=== PATIENT | female | born 1935 | race Hispanic/Latino ===

== ENCOUNTER → 2023-10-24 08:40 | Outpatient (REF) | payer MEDICARE, SELFPAY ==
[2023-10-24 09:55] LABS: ALT (SGPT) 22 U/L (0-35); AST (SGOT) 25 U/L (14-36); Albumin 3.8 g/dl (3.5-5.0); Alkaline Phosphatase 56 U/L (38-126); Blood Urea Nitrogen 23 mg/dl (7-17); Carbon Dioxide 33 mmol/L (22-30); Chloride 97 mmol/L (98-107); Glucose 140 mg/dl (70-99); Potassium 3.5 mmol/L (3.5-5.1); Sodium 138 mmol/L (135-145); Total Bilirubin 1.3 mg/dl (0.2-1.3); Total Cholesterol 186 mg/dl (50-199); Total Protein 6.7 g/dl (6.3-8.2); Triglyceride 94 mg/dl (10-149); Very Low Density Lipoprotein 18 mg/dl (0-30); eGFR > 60.00
[2023-10-24 10:04] LABS: HDL Cholesterol 139 mg/dl; LDL Cholesterol, Calculated 29 mg/dl
[2023-10-24 12:11] LABS: Microalbumin, Random Urine > 0.6 mg/dl (0.6-1.7)
[2023-10-24 12:23] LABS: Glycohemoglobin (HgbA1c) 8.2 % (4.0-5.6)
== END ==
LOC: RAD 08:40
PROVIDERS: ATTENDING PHYSICIAN Internal Medicine
DX: M81.0 Age-related osteoporosis without current pathological fracture (principal); I10 Essential (primary) hypertension; E11.9 Type 2 diabetes mellitus without complications
CPT/HCPCS: 36415; 77080; 80053; 80061; 82043; 82570; 83036

== ENCOUNTER 2023-10-29 13:39 | Emergency (ER) | payer MEDICARE, SELFPAY ==
[2023-10-29 13:46] VITALS: BP 150/85
[2023-10-29 14:27] LABS: % Basophils 0.3 % (0-2); % Immature Granulocytes 0.8 % (0-0.5); % Lymphocytes 5.4 % (20.5-51.1); % Monocytes 6.6 % (1.7-9.3); % Neutrophils 86.9 % (42.2-75.2); Absolute Immature Granulocytes 0.1 10^3/uL (0-0.05); Absolute Lymphocytes 0.4 10^3/uL (1.2-3.4); Absolute Monocytes 0.5 10^3/uL (0.1-0.6); Absolute Neutrophils 6.5 10^3/uL (1.4-6.5); Hematocrit 47.8 % (37.0-47.0); Mean Corp Hgb Conc. 33.5 g/dL (33.0-37.0); Mean Corpuscular Hgb 31.3 pg (27.0-31.0); Mean Corpuscular Volume 93.5 fL (81.0-99.0); Mean Platelet Volume 11.1 fL (7.4-10.4); Nucleated Red Blood Cells % 0 %; Platelet Count 163 10^3/uL (130-400); Red Blood Cell Count 5.11 10^6/uL (4.20-5.40); Red Cell Dist. Width 14.4 % (11.5-14.5); White Blood Cell Count 7.5 10^3/uL (4.8-10.8)
[2023-10-29 14:39] LABS: ALT (SGPT) 28 U/L (0-35); AST (SGOT) 45 U/L (14-36); Albumin 4.4 g/dl (3.5-5.0); Alkaline Phosphatase 73 U/L (38-126); Blood Urea Nitrogen 18 mg/dl (7-17); Calcium 9.8 mg/dl (8.4-10.2); Carbon Dioxide 29 mmol/L (22-30); Chloride 95 mmol/L (98-107); Glucose 201 mg/dl (70-99); Potassium 3.8 mmol/L (3.5-5.1); Sodium 132 mmol/L (135-145); Total Protein 7.5 g/dl (6.3-8.2); eGFR > 60.00
[2023-10-29 15:32] LABS: COVID-19 Antigen Negative (Negative)
--- NOTE | 2023-10-29 16:13 | ED.GENMED ---
History of Present Illness
General
Chief Complaint: Cold/Flu/URI Symptoms
Source: patient
Time Seen by Provider: 10/29/23 15:50
Travel History
Have you had any contact with someone who has COVID-19?: No
Do you have any symptoms of coronavirus? Fever > 100 degrees, chills, cough, shortness of breath, sore throat, loss of taste or smell, muscle aches, or headache?: Yes
Symptoms:: cough
History of Present Illness
History of Present Illness:
88-year-old female on Eliquis for history of atrial fibrillation and sees pulmonology for history of bronchial asthma presents with 4 days worth of increased cough. She notes sweats and chills. She notes slight fatigue. Denies measurable fever.
No vomiting. No known sick contacts. No other complaints at this time
Past History
Past History
ED Past Medical History: Arrthythmia, Asthma, HTN, Other (OA) and Other (Asthma, macular degeneration, atrial fibrillation, osteoarthritis)
ED Past Surgical History: Other (Noncontributory)
Social History
Tobacco: Former smoker
Alcohol: None
Drug: None
Personal: Other (Noncontributory)
Living: with family
Employment: Not employed
Family History
Family History: Other (Noncontributory)
Phy Exam
Physical Exam
Physical Exam:
General: Well-appearing female no acute respiratory distress
HEENT: Normocephalic atraumatic
Heart: Regular rate and rhythm no murmurs
Lungs: Diffuse expiratory wheeze
Extremities: No cyanosis or edema
Skin: No rash or lesions
Course
Orders/Labs/Results
Orders:
Orders
10/29/23 13:48
Electrocardiogram (*1) Urgent
Reason for Study: Other
Other Reason for Exam: cough
CXR2 [CR Chest - 2 Views ] Urgent
Comment:
Reason For Exam: coughing
10/29/23 13:49
EKG- Treatment ONCE
10/29/23 14:16
COVID-19 Antigen Urgent
Source: Nasal Swab
Complete Blood Count/With Diff Urgent
Comprehensive Metabolic Panel Urgent
Influenza A+B Rapid Molecular Urgent
MICHAEL Source: Nasal Swab
Specimen Description:
Abnormal Lab Results
10/29/23
14:16
Hct 47.8 H %
(37.0-47.0)
MCH 31.3 H pg
(27.0-31.0)
MPV 11.1 H fL
(7.4-10.4)
Abs Immat Gran (auto) 0.1 H 10^3/uL
(0-0.05)
Absolute Lymphs (auto) 0.4 L 10^3/uL
(1.2-3.4)
Immature Gran % 0.8 H %
(0-0.5)
Neutrophils % 86.9 H %
(42.2-75.2)
Lymphocytes % 5.4 L %
(20.5-51.1)
Sodium 132 L mmol/L
(135-145)
Chloride 95 L mmol/L
(98-107)
BUN 18 H mg/dl
(7-17)
Glucose 201 H mg/dl
(70-99)
Total Bilirubin 2.0 H mg/dl
(0.2-1.3)
AST 45 H U/L
(14-36)
10/29/23 14:16
10/29/23 14:16
Vital Signs
Initial and Last Documented VS:
Initial Vital Signs
Temp Pulse Resp BP Pulse Ox
98.7 F 89 18 150/85 94
10/29/23 13:46 10/29/23 13:46 10/29/23 13:46 10/29/23 13:46 10/29/23 13:46
Last Documented Vital Signs
Temp Pulse Resp BP Pulse Ox
98.7 F 84 18 146/88 95
10/29/23 13:46 10/29/23 16:22 10/29/23 16:22 10/29/23 16:22 10/29/23 16:22
MDM/Problems Addressed
Differential Diagnosis Includes:
Increased cough for 4 days. She notes sweats and chills. Not hypoxic at triage workup was reviewed that was performed through triage which shows a chest x-ray is stable no acute finding. Patient tested positive for influenza. COVID was negative.
Will increase prednisone temporarily to 40 mg daily for 5 days and have her come back to her typical 10 mg. Patient has nebulizers. No indication for Tamiflu
*Critical Care Note
Total Time (30-74mins, 75-104mins- exclusive of procedures): Not Applicable
Update Note
Update Note:
Patient did well ambulating without any hypoxia or respiratory distress. Stable for the
ED Attending Note
-
Portions of this chart may have been created with voice recognition software.� Occasional wrong word or��sound alike� substitutions may have occurred due to the inherent limitations of voice recognition software.
Discharge Plan
Departure
Patient Disposition: Home (Routine Discharge)
Date of Disposition: 10/29/23
Time of Disposition: 17:22
Patient with high blood pressure during this ER visit?: No
Discharge Problem:
Influenza A
Instructions: Acute Bronchitis, Adult (DC)
Prescriptions:
New
prednisone 20 mg tablet
40 mg PO DAILY 5 Days Qty: 10 0RF
No Action
Swathi-D 24 Hour Tablet
1 tab DAILY
Patient Comments:
180MG
Azelastine HCl
2 spray intranasal BID
Patient Comments:
137MCG
ergocalciferol (vitamin D2) 400 UNIT tablet
400 unit PO DAILY
hydrochlorothiazide 25 MG tablet
25 mg PO DAILY
albuterol sulfate [Ventolin HFA] 90 MCG/PUFF HFA aerosol inhaler
2 puff inhalation Q4HPRN PRN (Reason: sob)
fluticasone propionate 1 SPRAY spray,suspension
1 spray intranasal DAILY
Patient Comments:
stop for 2 weeks-too dry
beclomethasone dipropionate [Qvar] 7.3 GM aerosol
8.7 gm IH BID
docosahexaenoic acid-epa 1 CAP capsule
1 cap PO DAILY
Patient Comments:
100-160mg
calcium carbonate-vitamin D3 [Calcium 600 + D(3)] 1 EACH tablet
1 ea PO DAILY
omeprazole 20 MG tablet,delayed release (DR/EC)
20 mg PO DAILY
risedronate [Actonel] 150 MG tablet
150 mg PO .MONTHLY
apixaban [Eliquis] 5 MG tablet
5 mg PO BID Qty: 60 0RF
valsartan [Diovan] 160 MG capsule
160 mg PO DAILY
diltiazem HCl 180 MG capsule,extended release 24hr
180 mg PO BID
paroxetine HCl 20 MG tablet
20 mg PO DAILY
fluticasone propionate 1 SPRAY spray,suspension
1 spray IH DAILY
vitamins A,C,[id number]-[id number] [PreserVision AREDS] 1 CAP capsule
2 cap PO DAILY
biotin [Hard Nails] 2,500 MCG capsule
2,500 mcg PO DAILY
mometasone-formoterol [Dulera] 1 PUFF HFA aerosol inhaler
2 puff IH BID
hydrocodone-acetaminophen [Vicodin] 1 EACH tablet
1 ea PO Q4 PRN (Reason: pain) Qty: 15 0RF
Rx Instructions:
Do Not Mix with other acetaminophen containing products
hydrocodone-acetaminophen 1 TABLET tablet
1 tab PO Q4HPRN PRN (Reason: pain) Qty: 20 0RF
prednisone 20 MG tablet
40 mg PO DAILY Qty: 10 0RF
amoxicillin [Amoxil] 875 MG tablet
875 mg PO BID Qty: 14 0RF
Referrals:
Lucero Darby MD [Family Provider] -
Activity Restrictions/Additional Instructions:
Stay hydrated. Use Tylenol for fever or chills. Use prednisone 40 mg daily for 5 days. Switch back to your 10 mg of prednisone daily after. Return for worsening symptoms otherwise follow-up with your camera engineer
Interventions
Interventions:
*ED COVID-19 Vaccine History Last Done: 10/29/23 13:46
[2023-10-29 16:22] VITALS: BP 146/88
== END 2023-10-29 17:59 | disposition home or self-care (01) ==
LOC: EMR 13:39
PROVIDERS: Emergency Medicine; EMERGENCY PHYSICIAN Emergency Medicine; FAMILY PHYSICIAN Internal Medicine
DX: R05.9 Cough, unspecified (principal); J45.909 Unspecified asthma, uncomplicated; I10 Essential (primary) hypertension; H35.30 Unspecified macular degeneration; I48.91 Unspecified atrial fibrillation; M19.90 Unspecified osteoarthritis, unspecified site; J10.1 Influenza due to other identified influenza virus with other respiratory manifestations; Z87.891 Personal history of nicotine dependence
CPT/HCPCS: 99283; 71046; 80053; 85025; 87502; 87811; 93005

== ENCOUNTER → 2023-11-06 12:46 | Outpatient (REF) | payer MEDICARE, SELFPAY | LOC: REG 12:46 | PROVIDERS: ATTENDING PHYSICIAN Nurse Practitioner Family | DX: R05.9 Cough, unspecified (principal) | CPT/HCPCS: 87205 ==

== ENCOUNTER → 2024-01-02 14:32 | Outpatient (REF) | payer MEDICARE, SELFPAY ==
[2024-01-02 17:14] LABS: NT-proBNP 1890 pg/ml
== END ==
LOC: REG 14:32
PROVIDERS: ATTENDING PHYSICIAN Internal Medicine Cardiovascular Disease; FAMILY PHYSICIAN Internal Medicine
DX: I50.32 Chronic diastolic (congestive) heart failure (principal)
CPT/HCPCS: 36415; 83880

== ENCOUNTER 2024-01-29 18:54 | Inpatient (IN) | payer MEDICARE, SELFPAY ==
[2024-01-29 16:31] VITALS: BMI 23.6
--- NOTE | 2024-01-29 16:32 | ED.GENMED ---
History of Present Illness
General
Chief Complaint: Fall
Source: patient
Exam Limitations: none
Time Seen by Provider: 01/29/24 16:31
Nursing documentation reviewed up to this point in time: agreed with
Travel History
Have you had any contact with someone who has COVID-19?: No
Do you have any symptoms of coronavirus? Fever > 100 degrees, chills, cough, shortness of breath, sore throat, loss of taste or smell, muscle aches, or headache?: No
History of Present Illness
History of Present Illness:
88-year-old female with past medical history of A-fib on Eliquis, hypertension, macular degeneration presenting emergency department today with right hip pain following a fall. Patient states that she lives at home alone in an apartment in
[place]. Patient states that she uses a walker to ambulate at baseline. Patient states she is sitting on her chair watching TV when she got up and went to grab her walker, she states that she overshot the walker and fell over her walker on onto
her right side. Patient states that she immediately had a lot of pain in her right hip and was able unable to get up on her own. Patient states that she has a necklace that she can activate the call 911, she activated the button and EMS arrived.
Patient denies any head trauma, any loss of consciousness. Patient denies neck pain, chest pain, shortness of breath. Patient denies any dizziness or lightheadedness prior to the fall.
Past History
Past History
ED Past Medical History: Arrthythmia, Asthma, HTN, Other (OA) and Other (Asthma, macular degeneration, atrial fibrillation, osteoarthritis)
ED Past Surgical History: Other (Noncontributory)
Social History
Tobacco: Former smoker
Alcohol: None
Drug: None
Personal: Other (Noncontributory)
Living: with family
Employment: Not employed
Family History
Family History: Other (Noncontributory)
Review of Systems
Review of Systems
All Other Systems: ROS reviewed and negative except as documented in HPI and ROS
Phy Exam
Physical Exam
Physical Exam:
General: Patient is well appearing and in no acute distress; non-toxic
Skin: Warm and dry, small curved laceration on the left anterior ramirez, no active bleeding.
Head: Normocephalic, atraumatic. No tenderness palpation of the facial bones, no palpable deformities
Eyes: Sclera non-icteric. EOMs intact. PERRLA.
Cardiac: Regular rate and rhythm, no murmur. No tenderness palpation of the external chest wall.
Peripheral Vascular: No lower extremity swelling or edema. 2+ dorsalis pedis pulse bilaterally.
Pulm: Normal respiratory effort, no wheezes, rales, rhonchi. Presents equal
Abdomen: No abdominal tenderness
Musculoskeletal: Right hip is held in external rotation and right limb appears short tendon compared to the left. Extreme pain with any passive movement of the right hip. No bony tenderness palpation of left hip, left knee, left tibia or fibula.
No pain with varus valgus stress of the ankles bilaterally.
Neuro: GCS 15, AAOx3. CN II-XII intact, no focal neurologic deficits. 5 out of 5 strength in bilateral upper extremities.
Psychiatric: Appropriate mood and affect.
Course
Orders/Labs/Results
Orders:
Orders
01/29/24 16:34
Hip, Right 2-3 Views [CR Hip - RT w/wo Pel 2-3 Vw*] Urgent
Comment:
Reason For Exam: fall, hip pain
Include a pelvis x-ray?: Yes
01/29/24 16:40
Complete Blood Count/With Diff Urgent
Comprehensive Metabolic Panel Urgent
01/29/24 16:51
Acetaminophen 1000MG/100Ml [Ofirmev] 1,000 mg in 100 ml .ROUTE .STK-MED
01/29/24 16:52
Acetaminophen 1000MG/100Ml [Ofirmev] 1,000 mg IV NOW STA
01/29/24 17:23
0.9% Sodium Chloride 500 ml [Nss] 500 ml IV BOLUS
01/29/24 17:46
Morphine Sulfate 1 mg IV NOW STA
01/29/24 18:44
Admit/Transfer Patient As Directed
Co-Sign Provider:
Level of Care: Inpatient admission
Assign to:: Medical/Surgical
Physician / Group: [email or web address]
Diagnosis: hip fracture
Reason for Hospitalization: hip fracture
Expected length of stay greater than two midnights?: Yes
ELOS- Estimated Length of Stay in days: 2
I certify the patient meets the requirements for IP care: Yes
Code Status As Directed
Resuscitation Status: Full Code
Abnormal Lab Results
01/29/24
16:40
RBC 5.42 H 10^6/uL
(4.20-5.40)
Hgb 16.9 H g/dL
(12.0-16.0)
Hct 51.1 H %
(37.0-47.0)
MCH 31.2 H pg
(27.0-31.0)
MPV 12.1 H fL
(7.4-10.4)
Abs Immat Gran (auto) 0.2 H 10^3/uL
(0-0.05)
Absolute Neuts (auto) 8.4 H 10^3/uL
(1.4-6.5)
Absolute Lymphs (auto) 0.8 L 10^3/uL
(1.2-3.4)
Immature Gran % 1.7 H %
(0-0.5)
Neutrophils % 86.9 H %
(42.2-75.2)
Lymphocytes % 8.2 L %
(20.5-51.1)
Sodium 134 L mmol/L
(135-145)
Chloride 94 L mmol/L
(98-107)
BUN 40 H mg/dl
(7-17)
Creatinine 1.2 H mg/dL
(0.6-1.0)
Glucose 342 H mg/dl
(70-99)
Calcium 11.0 H mg/dl
(8.4-10.2)
Total Bilirubin 1.9 H mg/dl
(0.2-1.3)
01/29/24 16:40
01/29/24 16:40
Vital Signs
Initial and Last Documented VS:
Initial Vital Signs
Temp Pulse Resp Pulse Ox
98.2 F 97 18 92
01/29/24 16:32 01/29/24 16:32 01/29/24 16:32 01/29/24 16:32
Last Documented Vital Signs
Temp Pulse Resp BP Pulse Ox
98.2 F 89 18 142/77 92
01/29/24 16:32 01/29/24 19:05 01/29/24 19:05 01/29/24 19:05 01/29/24 19:05
MDM/Problems Addressed
Differential Diagnosis Includes:
Patient femoral neck fracture, pelvic fracture, vertebral compression fracture, hip contusion, musculoskeletal sprain/strain, concussion
MDM/Problems Addressed:
hip pain following fall
Chronic conditions affecting care:
Asthma, A-fib on Eliquis, hypertension, diabetes
*Pulse Oximetry
Patient hypoxic: no
*Critical Care Note
Total Time (30-74mins, 75-104mins- exclusive of procedures): Not Applicable
Data Reviewed
Review of Other/Old Records Reveals: Records (Reviewed ER physician documentation from 10/21/2023)
Source: patient and records
Patient Management
Escalation/DeEscalation of care consider admission/obs:
88-year-old female with past medical history of A-fib on Eliquis, hypertension, macular degeneration presenting emergency department today with right hip pain following a fall. Patient did not hit her head, denies any neck pain. Patient has any
chest pain or shortness of breath. Patient denies any pain in her upper extremities. Patient was found to have on x-ray of right femoral neck fracture. Spoke to orthopedist on-call who will update patient's family on plans for surgery, states
that will likely operate on Friday after holding Eliquis for 48 hours. Also has acute kidney injury, likely secondary to diuretics. Fluids started. Patient will be admitted to medicine service.
ED Attending Note
-
Portions of this chart may have been created with voice recognition software.� Occasional wrong word or��sound alike� substitutions may have occurred due to the inherent limitations of voice recognition software.
Discharge Plan
Departure
Patient Disposition: Admit
Date of Disposition: 01/29/24
Time of Disposition: 18:23
Admit to: Med/Surg
Presentation/result/management discussed w/ accepting MD/DO: Hospitalist
Condition: Fair
Discharge Problem:
Right femoral fracture, Acute kidney injury
Interventions
Interventions:
*Risk Screen - Suicide Last Done: 01/29/24 16:33
*General Assessment Last Done: 01/29/24 16:33
*Neglect/Abuse Screening Last Done: 01/29/24 16:33
ED- Fall Risk Assessment Last Done: 01/29/24 19:22
*ED COVID-19 Vaccine History Last Done: 01/29/24 19:22
*Nursing Disposition Last Done: 01/29/24 19:22
ED-Musculoskeletal Assessment Last Done: 01/29/24 18:32
ED- Neurological Assessment Last Done: 01/29/24 18:32
ED-Skin Assessment Last Done: 01/29/24 18:33
Discharge Date and Time
Discharge Date/Time: 01/29/24 19:23
[2024-01-29 16:36] VITALS: BP 132/78
[2024-01-29] MEDS: OFIRMEV 1000 MG IV (16:52)
[2024-01-29 16:58] LABS: % Basophils 0.3 % (0-2); % Immature Granulocytes 1.7 % (0-0.5); % Lymphocytes 8.2 % (20.5-51.1); % Monocytes 2.9 % (1.7-9.3); % Neutrophils 86.9 % (42.2-75.2); Absolute Immature Granulocytes 0.2 10^3/uL (0-0.05); Absolute Lymphocytes 0.8 10^3/uL (1.2-3.4); Absolute Monocytes 0.3 10^3/uL (0.1-0.6); Absolute Neutrophils 8.4 10^3/uL (1.4-6.5); Hematocrit 51.1 % (37.0-47.0); Hemoglobin 16.9 g/dL (12.0-16.0); Mean Corp Hgb Conc. 33.1 g/dL (33.0-37.0); Mean Corpuscular Hgb 31.2 pg (27.0-31.0); Mean Corpuscular Volume 94.3 fL (81.0-99.0); Mean Platelet Volume 12.1 fL (7.4-10.4); Nucleated Red Blood Cells % 0 %; Platelet Count 200 10^3/uL (130-400); Red Blood Cell Count 5.42 10^6/uL (4.20-5.40); Red Cell Dist. Width 14.4 % (11.5-14.5); White Blood Cell Count 9.7 10^3/uL (4.8-10.8)
[2024-01-29 17:07] LABS: ALT (SGPT) 28 U/L (0-35); AST (SGOT) 35 U/L (14-36); Albumin 4.6 g/dl (3.5-5.0); Alkaline Phosphatase 64 U/L (38-126); Blood Urea Nitrogen 40 mg/dl (7-17); Carbon Dioxide 27 mmol/L (22-30); Chloride 94 mmol/L (98-107); Estimated Creatinine Clearance 26 ml/min; Glucose 342 mg/dl (70-99); Potassium 4.1 mmol/L (3.5-5.1); Sodium 134 mmol/L (135-145); Total Bilirubin 1.9 mg/dl (0.2-1.3); Total Protein 7.5 g/dl (6.3-8.2); eGFR 43.54
[2024-01-29] MEDS: MORPHINE SULFATE 1 MG IV (17:51)
[2024-01-29] MEDS: NSS 500 IV (18:08)
--- NOTE | 2024-01-29 18:53 | HPS.HSE ---
Addendum entered and electronically signed by Barney Thompson MD 01/29/24 18:58:
Patient also with hyperglycemia with blood sugar of 342 likely secondary to chronic steroid use. Check hemoglobin A1c. Insulin sliding scale.
Original Note:
Family Physician
-
Family Physician: Lucero Darby
Chief Complaint
-
fall, right hip pain
History of Present Illness
88-year-old female past medical history of paroxysmal atrial fibrillation on Eliquis, HFpEF, asthma, hypertension, macular degeneration, presenting to the emergency room for right hip pain after a fall. She lives alone and uses a walker to ambulate
at baseline. She was sitting on her chair watching TV when she got up and went to grab her walker and overshot the walker and fell over her walker onto her right side. She immediately had a lot of pain in her right hip and was unable to get up on
her own. She has a necklace that can activate 911 and EMS arrived. He denies any head trauma or loss of consciousness. Denies any neck pain, chest pain, shortness of breath. She denies any dizziness or lightheadedness prior to the fall.
She states that she has chronic shortness of breath since having bronchitis and influenza in October. She occasionally has some palpitations. Denies any dizziness. Denies any lower extreme edema. Denies any weight gain.
Her film or tape librarian Dr. Link.
She denies smoking or alcohol use.
Medical History
Past Medical History
Past Medical History: Reports Other (paroxysmal atrial fibrillation on Eliquis, HFpEF, asthma, hypertension, macular degeneration)
Past Surgical History: Reports None
Social History
Tobacco: Non-smoker
Alcohol: None
Drug: None
Family History
Family History: Not pertinent
Allergies / Home Medications
Allergies reflects when Allergies were last updated in [employer].
Home Medications with original date entered in [employer]
Allergy/Medication List:
Allergies
Allergy/AdvReac Type Severity Reaction Status Date / Time
oxycodone Allergy Hives Verified 01/29/24 16:30
Sulfa (Sulfonamide Allergy Anaphylaxis Verified 01/29/24 16:30
Antibiotics)
Home Medications
fexofenadine 180 mg tablet 180 mg PO DAILY PRN allergies ##0 06/15/13
fluticasone propionate 50 mcg/actuation nasal spray,suspension 1 spray intranasal BID 06/15/13
apixaban 5 mg tablet (Eliquis) 5 mg PO BID ##60 06/22/13
biotin 2,500 mcg capsule (Hard Nails) 2,500 mcg PO DAILY 08/17/13
paroxetine HCl 20 mg tablet 20 mg PO DAILY 08/17/13
vitamins A,C,T-mher-qsimwi 4,296 mcg-226 mg-90 mg capsule (PreserVision AREDS) 2 cap PO DAILY 08/17/13
albuterol sulfate 90 mcg/actuation aerosol inhaler 2 puff inhalation R Q6HPRN PRN sob/wheezing 01/29/24
ascorbic acid (vitamin C) 500 mg tablet (Vitamin C) 1,000 mg PO DAILY 01/29/24
azithromycin 250 mg tablet 250 mg PO Q48H 01/29/24
budesonide 0.5 mg/2 mL suspension for nebulization 0.5 mg inhalation R Q6HPRN PRN sob/wheezing 01/29/24
cholecalciferol (vitamin D3) 25 mcg (1,000 unit) tablet (Vitamin D3) 25 mcg PO DAILY 01/29/24
cyanocobalamin (vitamin B-12) 1,000 mcg tablet (Vitamin B-12) 1,000 mcg PO DAILY 01/29/24
diltiazem HCl 240 mg capsule,extended release 24 hr 240 mg PO DAILY 01/29/24
empagliflozin 10 mg tablet (Jardiance) 10 mg PO DAILY 01/29/24
furosemide 40 mg tablet 40 mg PO BID 01/29/24
hydrochlorothiazide 12.5 mg tablet 12.5 mg PO DAILY 01/29/24
ipratropium 0.5 mg-albuterol 3 mg (2.5 mg base)/3 mL nebulization soln 3 ml inhalation R Q4HPRN PRN sob/wheezing 01/29/24
losartan 100 mg tablet 100 mg PO DAILY 01/29/24
prednisone 10 mg tablet 10 mg PO DAILY 01/29/24
Review of Systems
-
History Source: Patient
A 12 point ROS was completed and negative except as noted: Yes
Constitutional: Reports No Symptoms
EENT: Reports No Symptoms
Respiratory: Reports No Symptoms
Cardiac: Reports No Symptoms
Abdomen/GI: Reports No Symptoms
: Reports No Symptoms
Musculoskeletal: Reports No Symptoms
Skin: Reports No Symptoms
Neurological: Reports No Symptoms
Endocrine: Reports No Symptoms
Hematologic/Lymphatic: Reports No Symptoms
Psych: Reports No Symptoms
Physical Exam
Vital Signs
Vital Signs
Temp Pulse Resp BP Pulse Ox
98.2 F 97 18 132/78 92
01/29/24 16:32 01/29/24 16:32 01/29/24 16:32 01/29/24 16:36 01/29/24 16:32
Physical Exam
General: Well Developed, Well Nourished and No Apparent Distress
HEENT: NormoCephalic, Moist mucous membranes and Atraumatic
Respiratory: Clear
Cardiac: S1/S2 and Regular Rhythm; No Murmur or Rub
GI: Soft, Non Tender, Non Distended and Normal Bowel Sounds; No Organomegaly
Rectal: Deferred by Provider
Musculoskeletal: No Clubbing, No Cyanosis and No Edema
Skin: No Rash
Neuro: Nonfocal/grossly intact
Laboratory Results
-
01/29/24 16:40
01/29/24 16:40
Laboratory Results
Total Bilirubin 1.9 mg/dl (0.2-1.3) H 01/29/24 16:40
AST 35 U/L (14-36) 01/29/24 16:40
ALT 28 U/L (0-35) 01/29/24 16:40
Alkaline Phosphatase 64 U/L (38-126) 01/29/24 16:40
Data Reviewed
-
Lab Data: Labs Reviewed by me
Old Records: Reviewed
Impression/Plan
-
IMPRESSION:
PLAN:
# Mechanical fall resulting in right femoral neck fracture
-Tylenol, morphine for pain
-Hold Eliquis which was last taken this morning
-Ortho planning for surgery on Friday
-Patient with elevated, 6% RCRI risk for cardiac complications after surgery due to history of HFpEF, atrial fibrillation, but appears well compensated
-Check EKG
# Acute kidney injury prerenal secondary to diuretic
-IV fluids
-Hold hydrochlorothiazide, valsartan
-Hold spironolactone
-Hold Lasix
# Hypercalcemia
-Corrected calcium 10.5
-IV fluids
-Check PTH, vitamin D
Paroxysmal atrial fibrillation
-Hold Eliquis
-Continue diltiazem
-Check EKG
Chronic HFpEF
-Appears well compensated
-Hold Lasix, spironolactone, empagliflozin
Essential hypertension
-Hold hydrochlorothiazide, losartan due to JACQUE
Asthma
-Continue albuterol, budesonide
-Continue prednisone
-Continue prophylactic azithromycin
Macular degeneration
Anxiety/depression
-Continue paroxetine
Osteoporosis
-Continue risedronate
Full code
DVT prophylaxis�SCDs
Regular diet
[2024-01-29 19:05] VITALS: BP 142/77
[2024-01-29] MEDS: MORPHINE SULFATE 2 MG IV ×2 (19:13→22:05)
--- NOTE | 2024-01-29 19:25 | PTCARENOTE ---
Patient arrived from ED via stretcher with family at her side; pulled patient from stretcher to bed with assist x3; AAOx3; primary language Azerbaijani, but understands and speaks Dominican; admission history obtained from patient and family member;
Dixiewick placed as patient's surgery Friday d/t home medication Eliquis taken today.
--- NOTE | 2024-01-29 19:47 | CON.ORTHO ---
Addendum entered and electronically signed by Kavon Romo MD 01/30/24 09:13:
Reason for Consultation: Right hip fracture (left entered in error in original consultation note)
Original Note:
Consultation
-
Date/Time Consultation Requested: 6PM 01/29/2024
Date/Time Consultation Performed: 730 PM 01/29/2024
Requesting Provider: Primary
Performing Provider: Clarissa
Reason for Consultation: Left hip fracture
Consultation - Orthopedics
History
HPI: 88-year-old female history of A-fib on Eliquis presented to the emergency department status post fall with right hip pain and inability to bear weight. She was subsequently diagnosed with a right displaced femoral neck fracture. She was
admitted to the hospitalist service and orthopedics was consulted for further evaluation and treatment recommendations. Patient was seen this evening with her son at bedside. Patient reports pain well localized to right groin. She reports that
she was standing up using her walker when she tripped and fell onto her right hip. They do report that she had the flu and bronchitis that was quite severe in October. She does report that her last Eliquis dose was this morning.
Allergies / Home Medications
Past medical history: A-fib, heart failure, asthma, hypertension, macular degeneration
Past surgical history: Bladder surgery
Family history: Not pertinent
Social history: Non-smoker utilizes walker for ambulatory assistance
Allergy/AdvReac Type Severity Reaction Status Date / Time
oxycodone Allergy Hives Verified 01/29/24 16:30
Sulfa (Sulfonamide Allergy Anaphylaxis Verified 01/29/24 16:30
Antibiotics)
�Medication �Instructions �Recorded
fexofenadine 180 mg tablet 180 mg PO DAILY PRN allergies ##0 06/15/13
fluticasone propionate 50 1 spray intranasal BID 06/15/13
mcg/actuation nasal
spray,suspension
apixaban 5 mg tablet (Eliquis) 5 mg PO BID ##60 06/22/13
biotin 2,500 mcg capsule (Hard 2,500 mcg PO DAILY 08/17/13
Nails)
paroxetine HCl 20 mg tablet 20 mg PO DAILY 08/17/13
vitamins A,C,P-jpjq-jxddir 4,296 2 cap PO DAILY 08/17/13
mcg-226 mg-90 mg capsule
(PreserVision AREDS)
albuterol sulfate 90 mcg/actuation 2 puff inhalation R Q6HPRN PRN 01/29/24
aerosol inhaler sob/wheezing
ascorbic acid (vitamin C) 500 mg 1,000 mg PO DAILY 01/29/24
tablet (Vitamin C)
azithromycin 250 mg tablet 250 mg PO Q48H 01/29/24
budesonide 0.5 mg/2 mL suspension 0.5 mg inhalation R Q6HPRN PRN 01/29/24
for nebulization sob/wheezing
cholecalciferol (vitamin D3) 25 25 mcg PO DAILY 01/29/24
mcg (1,000 unit) tablet (Vitamin
D3)
cyanocobalamin (vitamin B-12) 1,000 mcg PO DAILY 01/29/24
1,000 mcg tablet (Vitamin B-12)
diltiazem HCl 240 mg 240 mg PO DAILY 01/29/24
capsule,extended release 24 hr
empagliflozin 10 mg tablet 10 mg PO DAILY 01/29/24
(Jardiance)
furosemide 40 mg tablet 40 mg PO BID 01/29/24
hydrochlorothiazide 12.5 mg tablet 12.5 mg PO DAILY 01/29/24
ipratropium 0.5 mg-albuterol 3 mg 3 ml inhalation R Q4HPRN PRN 01/29/24
(2.5 mg base)/3 mL nebulization sob/wheezing
soln
losartan 100 mg tablet 100 mg PO DAILY 01/29/24
prednisone 10 mg tablet 10 mg PO DAILY 01/29/24
Vital Signs / Lab Results
Temp Pulse Resp BP Pulse Ox
98.2 F 89 18 142/77 92
05/30/24 16:32 01/29/24 19:05 01/29/24 19:05 01/29/24 19:05 01/29/24 19:05
01/29/24 16:40
01/29/24 16:40
10 point review systems reviewed and negative unless otherwise stated
General: Pleasant, no acute distress at rest in bed
Musculoskeletal right lower extremity
Skin intact, no erythema, no ecchymotic staining
Extremity short externally rotated
Tender to palpation groin and lateral trochanteric flare
Minimal palpable ipsilateral knee effusion
Positive EHL, FHL, ankle dorsiflexion, plantarflexion
Sensation grossly tact light touch distally
Distal extremity warm and pink
No other areas of bony tenderness palpation or crepitation of long bones and joints on tertiary examination
Diagnostic studies
X-rays right hip independently by myself that shows displaced right femoral neck fracture
Assessment / Plan
88-year-old female history of A-fib on Eliquis, asthma, heart failure status post fall with displaced right femoral neck fracture. Had a long detailed discussion with both the patient as well as her son regarding diagnosis and treatment options.
Discussed with surgical nonsurgical options. Given the patient's fracture pattern age and ambulatory function, would recommend right hip hemiarthroplasty. We discussed risks benefits and alternatives of surgery. Discussed the usual expected
perioperative postoperative course. After discussion verbal consent was obtained and we will plan to obtain written informed consent prior to surgical intervention. Given patient's Eliquis use, would recommend 48-hour washout for this morning.
Will plan for OR Friday
Nonweightbearing right lower extremity
Pain controlled
N.p.o. in preparation for OR Friday
Hold DVT prophylaxis in preparation for OR Friday
Hold Eliquis
Medical management per primary team
Plan: 2 OR for right hip hemiarthroplasty Friday pending medical clearance and or availability
[2024-01-29 20:10] VITALS: BP 142/85
[2024-01-29 20:49] VITALS: BMI 25.3
[2024-01-29 20:53] LABS: Vitamin D, 25-OH*** 53.4 ng/mL (30-80)
[2024-01-29] MEDS: NSS 1000 IV (21:40)
[2024-01-29 21:51] LABS: Glucose - Point of Care 261 mg/dl (70-99)
[2024-01-29 23:23] VITALS: BP 140/78
[2024-01-29 23:32] VITALS: BMI 25.3
[2024-01-30] MEDS: NSS 1000 IV (05:26)
[2024-01-30 05:34] LABS: % Basophils 0.3 % (0-2); % Eosinophils 0.1 % (0-6); % Immature Granulocytes 0.9 % (0-0.5); % Lymphocytes 5.8 % (20.5-51.1); % Monocytes 5.6 % (1.7-9.3); % Neutrophils 87.3 % (42.2-75.2); Absolute Immature Granulocytes 0.1 10^3/uL (0-0.05); Absolute Lymphocytes 0.9 10^3/uL (1.2-3.4); Absolute Monocytes 0.8 10^3/uL (0.1-0.6); Absolute Neutrophils 13.2 10^3/uL (1.4-6.5); Hematocrit 48.8 % (37.0-47.0); Hemoglobin 16.2 g/dL (12.0-16.0); Mean Corp Hgb Conc. 33.2 g/dL (33.0-37.0); Mean Corpuscular Hgb 31.6 pg (27.0-31.0); Mean Corpuscular Volume 95.1 fL (81.0-99.0); Mean Platelet Volume 11.7 fL (7.4-10.4); Nucleated Red Blood Cells % 0 %; Platelet Count 157 10^3/uL (130-400); Red Blood Cell Count 5.13 10^6/uL (4.20-5.40); Red Cell Dist. Width 14.3 % (11.5-14.5); White Blood Cell Count 15.1 10^3/uL (4.8-10.8)
[2024-01-30 06:03] LABS: ALT (SGPT) 25 U/L (0-35); AST (SGOT) 32 U/L (14-36); Albumin 3.8 g/dl (3.5-5.0); Alkaline Phosphatase 54 U/L (38-126); Blood Urea Nitrogen 30 mg/dl (7-17); Calcium 10.1 mg/dl (8.4-10.2); Carbon Dioxide 30 mmol/L (22-30); Chloride 100 mmol/L (98-107); Estimated Creatinine Clearance 36 ml/min; Glucose 177 mg/dl (70-99); Sodium 137 mmol/L (135-145); Total Protein 6.4 g/dl (6.3-8.2); eGFR > 60.00
[2024-01-30 07:10] VITALS: BP 151/88
[2024-01-30 07:41] LABS: Glucose - Point of Care 205 mg/dl (70-99)
[2024-01-30] MEDS: MORPHINE SULFATE 2 MG IV ×2 (08:11→20:15)
[2024-01-30] MEDS: OCUVITE SOFTGEL 2 CAP PO (08:12)
[2024-01-30] MEDS: VITAMIN C 1000 MG PO (08:13)
[2024-01-30] MEDS: DELTASONE 10 MG PO (08:13)
[2024-01-30] MEDS: CARDIZEM CD 240 MG PO (08:13)
[2024-01-30] MEDS: VITAMIN B-12 1000 MCG PO (08:13)
[2024-01-30] MEDS: VITAMIN D3 (cholecalciferol) 25 MCG PO (08:13)
[2024-01-30] MEDS: ZITHROMAX 250 MG PO (08:13)
[2024-01-30] MEDS: NOVOLOG FLEXPEN-LOW RESISTANCE 2 UNITS SC ×2 (08:25→17:26)
--- NOTE | 2024-01-30 08:29 | W.PN.HOSP.TC ---
Today's Communication/Plan
-
see bold
Assessment / Plan
Assessment / Plan
Gen: NAD, AAOx3.
Eyes: EOMI, PERRLA, no scleral icterus.
Neck: supple.
CV: irreg/irreg, +S1/S2, no m/r/g.
Resp: faint rales in the bases, wheezes, or rhonchi.
Abd: +BS, soft, NT, ND
Skin: No rashes. No LE edema
Neuro: CN 2-12 intact, non-focal.
Psych: Normal mood and affect.
Mechanical fall resulting in right femoral neck fracture:
-Tylenol, morphine for pain
-Holding Eliquis which was last taken 01/29/24AM
-Ortho planning for surgery on 01/31/24
-Patient with elevated, 6% RCRI risk for cardiac complications after surgery due to history of HFpEF, atrial fibrillation, but appears well compensated
-repeat EKG (poor baseline on initial ECG)
Acute kidney injury:
-mild, prerenal secondary to diuretic
-Cr only 1.2 from baseline 0.9
-resolved with IV fluids
-stop IVFs
-restart valsartan and Lasix today
Hypercalcemia:
-resolved with IVFs
-Vit D normal
-PTH pending
Paroxysmal atrial fibrillation
-Holding Eliquis for planned OR
-Continue diltiazem
-Check EKG
Chronic HFpEF:
-restart Lasix/Jardiance
-check CXR with faint rales in bases
Essential hypertension:
-cont Cardizem
-restart Losartan/Lasix
Asthma
-Continue albuterol, budesonide
-Continue prednisone
-Continue prophylactic azithromycin
Macular degeneration
Anxiety/depression
-Continue paroxetine
Osteoporosis
-Continue risedronate
RN updated.
FULL/SCDs
Anticipated Discharge: > 48 hours
Subjective/Interval History
-
Date of Service: January 30, 2024
Pt expresses concern over her fx. Reports baseline SOB this is not worse than baseline at this time.
Objective Data
-
Labs:
Laboratory Results
01/30/24
04:24
WBC 15.1 H
Hgb 16.2 H
Hct 48.8 H
Plt Count 157 D
Sodium 137
Potassium 4.0
Chloride 100
Carbon Dioxide 30
BUN 30 H
Creatinine 0.9
Glucose 177 H
Calcium 10.1
Total Bilirubin 2.0 H
AST 32
ALT 25
Alkaline Phosphatase 54
Vital Signs:
Vital Signs
Temp Pulse Resp BP Pulse Ox
97.8 F 102 16 151/88 98
01/30/24 07:10 01/30/24 07:10 01/30/24 07:10 01/30/24 07:10 01/30/24 07:10
I&O
01/29/24 01/30/24 01/31/24
06:59 06:59 06:59
Intake Total 46056 / 90683
Output Total 400 / 400
Balance 67372 / 24549
[2024-01-30 09:11] LABS: Glycohemoglobin (HgbA1c) 9.1 % (4.0-5.6)
[2024-01-30] MEDS: JARDIANCE 10 MG PO (10:32)
[2024-01-30] MEDS: COZAAR 100 MG PO (10:32)
[2024-01-30] MEDS: LASIX 40 MG PO ×2 (10:32→17:26)
[2024-01-30 11:46] LABS: Glucose - Point of Care 275 mg/dl (70-99)
[2024-01-30 12:18] VITALS: BMI 25.3
[2024-01-30] MEDS: NOVOLOG FLEXPEN-LOW RESISTANCE 3 UNITS SC (12:58)
[2024-01-30 13:02] LABS: Intact PTH 13.6 pg/ml (13.6-85.8)
[2024-01-30 15:10] VITALS: BP 123/65
[2024-01-30 16:23] LABS: Glucose - Point of Care 213 mg/dl (70-99)
--- NOTE | 2024-01-30 16:38 | CM ---
Initial assessment completed with patient who lives alone in a 3rd floor apartment in elevator building, no steps to enter, has a rollator in the home and has no in-home services. [employer] patient was independent and does not drive, no psychiatric
hospitalizations. [facility] is [facility] [place] and PCP is Dr. Lucero Darby at [facility]. Patient has friends or family transport to appointments. Would like to have a transport service if available. Discharge
Plan of Care: Surgery for hip repair on 01/31/24. Anticipate need for STR.
[2024-01-30 21:50] LABS: Glucose - Point of Care 240 mg/dl (70-99)
[2024-01-30] MEDS: PAXIL 20 MG PO (22:26)
[2024-01-30 23:30] VITALS: BP 129/72
[2024-01-31] VITALS (68 sets, daily range): BP systolic 71–147; BP diastolic 41–124
[2024-01-31 06:32] LABS: Glucose - Point of Care 217 mg/dl (70-99)
[2024-01-31] MEDS: CARDIZEM CD 240 MG PO (07:38)
[2024-01-31] MEDS: LASIX 40 MG PO (07:42)
[2024-01-31] MEDS: COZAAR 100 MG PO (07:42)
[2024-01-31] MEDS: DUONEB 3 ML INH ×2 (08:17→10:38)
[2024-01-31] MEDS: ANCEF 10 IV (08:43)
--- NOTE | 2024-01-31 09:47 | W.PN.HOSP.TC ---
Today's Communication/Plan
-
see bold
Assessment / Plan
Assessment / Plan
Gen: NAD, awake and alert
Eyes: EOMI, PERRLA, no scleral icterus.
Neck: supple.
CV: Remains irreg/irreg, +S1/S2, no m/r/g.
Resp: CTAB anteriorly
Skin: No rashes.
Neuro: CN 2-12 intact, non-focal.
Psych: Normal mood and affect.
CXR: No radiographic evidence of acute cardiopulmonary abnormality. No radiographic evidence for pulmonary edema.
Hypotension and hypoxemia:
-technically pt with shock requiring levophed. Type of shock unknown at this point.
-cont Levophed. 1L NS bolus. If unable to wean Levophed shortly will start maintenance IVFs.
-check CXR (on my read no acute disease of the chest) and ABG
-currently on 6L via simple mask
-transfer to ICU
Mechanical fall resulting in right femoral neck fracture:
-s/p R hemiarthroplasty 01/31/24
-ortho following
-case discussed with Dr. Romo, OK to resume Eliquis
Acute kidney injury:
-mild, prerenal secondary to diuretic
-Cr only 1.2 on admission from baseline 0.9, now 0.8
-resolved with IV fluids (IVFs stopped 01/30/24AM)
Hypercalcemia:
-resolved with IVFs
-Vit D/PTH normal
Paroxysmal atrial fibrillation
-restart Eliquis
-Continue diltiazem
Chronic HFpEF:
-hold lasix with hypotension
-cont Lasix/Jardiance
Essential hypertension:
-hold Cardizem/Losartan/Lasix with hypotension
Asthma
-Continue albuterol, budesonide
-Continue prednisone
-Continue prophylactic azithromycin
Macular degeneration
Anxiety/depression
-Continue paroxetine
Osteoporosis
-Continue risedronate
RN updated.
FULL/SCDs
Total critical care time spent equals 34 minutes
Anticipated Discharge: > 48 hours
Subjective/Interval History
-
Date of Service: January 31, 2024
Called to PACU to see patient immediately due to hypotension requiring Levophed at 8 mcg/kg/h and hypoxemia. Patient was on 8 L via simple mask and has been weaned to 6 L via simple mask. Patient is approximately 1 hour postop. Denies chest pain
or shortness of breath complains of cough.
Objective Data
-
Vital Signs:
Vital Signs
Temp Pulse Resp BP Pulse Ox
98.3 F 98 18 147/77 90
01/31/24 07:51 01/31/24 07:51 01/31/24 07:51 01/31/24 07:51 01/31/24 07:51
I&O
01/30/24 01/31/24 02/01/24
06:59 06:59 06:59
Intake Total 51805 / 46856 900 / 900
Output Total 400 / 400 900 / 900
Balance 48786 / 77078 0 / 0
[2024-01-31] MEDS: LEVOPHED 250 IV ×2 (10:15→20:03)
--- NOTE | 2024-01-31 10:19 | OR.RPT ---
Operative Report
Operative Report
Anesthesia Type:
General
Operative Indications:
Displaced right femoral neck fracture
Operative Findings :
Same
Complications:
None
Implants:
Scarlett LD fracture size 11 cemented femoral stem, 47 shell, +3.5 head
Procedure and Technique:
Right cemented hip hemiarthroplasty
INDICATIONS FOR PROCEDURE:
88-year-old female presented to the emergency department status post fall with complaints of right hip pain and inability to bear weight. She subsequently diagnosed with a displaced right femoral neck fracture. She was admitted to the hospitalist
service and orthopedics was consulted. I had a long discussion with both the patient as well as her son who is her medical power of transactional attorney regarding diagnosis and treatment options. We discussed both surgical and nonsurgical options. After
discussion, we mutually agreed to proceed with right hip hemiarthroplasty. We discussed risks benefits and alternatives. We discussed the usual expected perioperative and postoperative course. After discussion written informed consent was
obtained. We did wait 48 hours from her last dose of Eliquis prior to proceeding to the OR.
OPERATIVE PROCEDURE:
Patient was seen and identified in the preoperative holding area. Operative extremity was marked. Patient was taken to the operating room and anesthesia was administered by the anesthesia providers. Patient was then placed in a lateral decubitus
position with the use of a beanbag. All bony prominences were well-padded. Operative extremity was then prepped and draped in normal sterile fashion. Timeout was performed again identifying the correct operative extremity. Preoperative
antibiotics were addressed. Standard posterolateral approach to the hip was taken. Sharp dissection was carried through skin and subcutaneous tissues and deep fascial layer. Hemostasis was achieved with electrocautery. Hip was then placed on
slight internal rotation to place the external rotators on stretch. Piriformis was identified and a Cobra retractor was then placed under the gluteus medius and minimus. Piriformis and short external rotators were taken down and tagged. A T
capsulotomy was then performed and capsular leaflets were also tagged. The fracture was identified and a freshen up cut was performed. The femoral head was then removed and sized. Appropriately sized ball on a stick was then placed into the
acetabulum and felt to have appropriate suction fit. Attention was then turned to the proximal femur where soft tissue remnants were removed from the piriformis fossa. Remnant neck was removed with the use of a cookie cutter. Canal finder was
then placed in addition to lateralizing reamer. Stepwise broaching was then performed to the appropriate size. Implants were then trialed and found to have appropriate stability and deep flexion, internal rotation, shuck and adduction. Implants
were then removed and canal was copiously irrigated normal saline solution. Cement restrictor was then placed. Pressurized cement was then placed into the femoral canal and appropriately sized femoral stem was then placed in the appropriate
version. After cement had hardened, final implants were then placed and the hip was again taken through range of motion and found to be quite stable. Satisfied with the extent of surgery, wound was copiously irrigated with normal saline solution
and a Betadine solution. The capsule, piriformis and short external rotators were then repaired through osseous tunnels into the greater trochanter. Wound was then closed in a layered fashion utilizing 0 Vicryl for deep fascial layer, 2-0 Vicryl
for subcutaneous layer and florinda for skin. Aquacel dressing was then placed. Anesthesia was reversed and patient was taken to PACU in a stable condition. Postoperative plans will include weightbearing to the patient's tolerance in the operative
extremity. Posterior hip precautions will be advised. Recommend DVT prophylaxis consisting of renally dosed Lovenox daily for 28 days unless patient is already on baseline anticoagulation. Will plan to see patient back in 2 weeks for
postoperative evaluation with planned removal of florinda.
Disposition:
PACU, stable condition
[2024-01-31 10:32] LABS: Glucose - Point of Care 199 mg/dl (70-99)
[2024-01-31] MEDS: NSS 1000 IV ×3 (10:50→22:38)
[2024-01-31] MEDS: NOVOLOG vial 2 UNITS SC (11:13)
[2024-01-31 11:27] LABS: Hematocrit 47.1 % (37.0-47.0); Hemoglobin 15.8 g/dL (12.0-16.0); Mean Corp Hgb Conc. 33.5 g/dL (33.0-37.0); Mean Corpuscular Hgb 31.5 pg (27.0-31.0); Mean Corpuscular Volume 93.8 fL (81.0-99.0); Mean Platelet Volume 11.7 fL (7.4-10.4); Platelet Count 189 10^3/uL (130-400); Red Blood Cell Count 5.02 10^6/uL (4.20-5.40); Red Cell Dist. Width 14.6 % (11.5-14.5); White Blood Cell Count 21.9 10^3/uL (4.8-10.8)
[2024-01-31 11:35] LABS: Blood Urea Nitrogen 21 mg/dl (7-17); Calcium 9.6 mg/dl (8.4-10.2); Carbon Dioxide 29 mmol/L (22-30); Chloride 101 mmol/L (98-107); Estimated Creatinine Clearance 40 ml/min; Glucose 225 mg/dl (70-99); Potassium 3.7 mmol/L (3.5-5.1); Sodium 142 mmol/L (135-145); eGFR > 60.00
[2024-01-31 12:37] LABS: B.E. 0.3 mmol/L; O2 Saturation % 93.1 % (94-98); PCO2 45 mmHg (32-35); PO2 67 mmHg (83-108); pH 7.37 (7.35-7.45)
[2024-01-31] MEDS: JARDIANCE PO (12:53)
[2024-01-31] MEDS: NOVOLOG FLEXPEN-LOW RESISTANCE SC ×2 (12:53)
--- NOTE | 2024-01-31 13:02 | CON.INTV ---
Consultation
Consultation Request
Date/Time Consultation Requested: 01/31/2024
Date/Time Consultation Performed: 01/31/2024
Requesting Provider: Dr. Santana
Performing Provider: Dr. Jason Graves
Reason for Consultation: Postoperative hypotension
Medical History
-
History of Present Illness:
88-year-old woman who had a mechanical fall with resulting right femoral neck fracture. Status post right hemiarthroplasty on 01/31/2024.
Past Medical History
Past Medical History: Other (See assessment and plan section)
Social History
Tobacco: Non-smoker
Alcohol: None
Drug: None
Family History
Family History: Reviewed & Not Pertinent
Allergies / Home Medications
Allergies
Allergy/AdvReac Type Severity Reaction Status Date / Time
oxycodone Allergy Hives Verified 01/29/24 16:30
Sulfa (Sulfonamide Allergy Anaphylaxis Verified 01/29/24 16:30
Antibiotics)
Home Medications
�Medication �Instructions �Recorded �Confirmed �Last Taken �Type
fexofenadine 180 mg tablet 180 mg PO DAILY PRN allergies ##0 06/15/13 01/29/24 08/17/13 08:00 History
fluticasone propionate 50 1 spray intranasal BID Allergies 06/15/13 01/29/24 01/29/24 History
mcg/actuation nasal
spray,suspension
apixaban 5 mg tablet (Eliquis) 5 mg PO BID ##60 06/22/13 01/29/24 01/29/24 Rx
biotin 2,500 mcg capsule (Hard 2,500 mcg PO DAILY Supplement 08/17/13 01/29/24 01/29/24 History
Nails)
paroxetine HCl 20 mg tablet 20 mg PO DAILY Depression 08/17/13 01/29/24 01/29/24 History
vitamins A,C,Y-fsct-sjfbob 4,296 2 cap PO DAILY Supplement 08/17/13 01/29/24 01/29/24 History
mcg-226 mg-90 mg capsule
(PreserVision AREDS)
albuterol sulfate 90 mcg/actuation 2 puff inhalation R Q6HPRN PRN 01/29/24 01/29/24 Unknown History
aerosol inhaler sob/wheezing
ascorbic acid (vitamin C) 500 mg 1,000 mg PO DAILY Supplement 01/29/24 01/29/24 01/29/24 History
tablet (Vitamin C)
azithromycin 250 mg tablet 250 mg PO Q48H Infection 01/29/24 01/29/24 Unknown History
budesonide 0.5 mg/2 mL suspension 0.5 mg inhalation R Q6HPRN PRN 01/29/24 01/29/24 Unknown History
for nebulization sob/wheezing
cholecalciferol (vitamin D3) 25 25 mcg PO DAILY Supplement 01/29/24 01/29/24 01/29/24 History
mcg (1,000 unit) tablet (Vitamin
D3)
cyanocobalamin (vitamin B-12) 1,000 mcg PO DAILY Supplement 01/29/24 01/29/24 01/29/24 History
1,000 mcg tablet (Vitamin B-12)
diltiazem HCl 240 mg 240 mg PO DAILY Blood Pressure 01/29/24 01/29/24 01/29/24 History
capsule,extended release 24 hr
empagliflozin 10 mg tablet 10 mg PO DAILY Diabetes 01/29/24 01/29/24 01/29/24 History
(Jardiance)
furosemide 40 mg tablet 40 mg PO BID Fluid 01/29/24 01/29/24 01/29/24 History
Retention/Swelling
hydrochlorothiazide 12.5 mg tablet 12.5 mg PO DAILY Blood Pressure 01/29/24 01/29/24 01/29/24 History
ipratropium 0.5 mg-albuterol 3 mg 3 ml inhalation R Q4HPRN PRN 01/29/24 01/29/24 Unknown History
(2.5 mg base)/3 mL nebulization sob/wheezing
soln
losartan 100 mg tablet 100 mg PO DAILY Blood Pressure 01/29/24 01/29/24 01/29/24 History
prednisone 10 mg tablet 10 mg PO DAILY Anti-Inflammatory 01/29/24 01/29/24 01/29/24 History
Review of Systems
-
History Source: Patient
All other systems: Negative unless noted
Vitals / Labs / Diagnostic Testing
Vital Signs
Temp Pulse Resp BP Pulse Ox
97.1 F 98 17 87/58 92
01/31/24 12:05 01/31/24 12:10 01/31/24 12:10 01/31/24 12:16 01/31/24 12:42
Lab Data
01/31/24 11:11
01/31/24 11:12
Laboratory Results
01/31/24
12:22
pH 7.37
pCO2 45 H
pO2 67 L
HCO3 26.0
O2 Delivery Level
Diagnostic Testing:
Physical Exam
-
HEENT: Normocephalic
Cardiovascular: S1/S2
Respiratory: Clear
GI: Soft
Neurology: Awake, Oriented, AO x 3 and No Motor Deficits
Skin: Warm and Other (Right hip incision is covered. No evidence for hematoma.)
General: Respiratory Distress (n) and Other (Able to speak in full sentences)
Assessment
-
88-year-old woman admitted to the hospital 01/29/2024 after sustaining a fall. Found to have right hip fracture. Underwent hemiarthroplasty 01/31/2024. Transferred to the critical care unit with hypotension requiring vasopressors and hypoxemia.
Of note, patient has history of asthma, on low-dose steroids for quite some time. Last time seen in the pulmonary office 01/15/[address] Graves. Used to follow-up with Dr. Trejo.
We were consulted to see her in critical care unit on 01/31/2024
Hypotension/shock/hypoxemia-postoperatively.
ABG 7.30 7/45/67
Chest x-ray: 01/31/2024: No acute abnormalities. Mild left hemidiaphragm elevation-atelectasis versus pneumonia.
Shock: Cannot rule out relative adrenal insufficiency.
Mechanical fall with status post right hip fracture: Status post hemiarthroplasty 01/31/2024
Leukocytosis possibly reactive
Hyperglycemia
Conditions present prior admission:
Paroxysmal atrial fibrillation on Eliquis
Heart failure with preserved ejection fraction
Yktwfv-apragny-jcmcsmkdg 10 mg daily for quite some time.
First time seen by Dr. Graves 01/15/2024
Pulmicort/DuoNebs/Singulair/low-dose azithromycin for anti-inflammatory properties
Hypertension
Macular degeneration
Type 2 diabetes
Assessment and plan:
Patient is critically ill, hypotensive after right hip surgery.
Pain is controlled.
-
Shock: Possibly distributive, possibly from relative adrenal insufficiency.
Patient takes 10 mg of prednisone on a daily basis for years.
Start stress dose of a steroid hydrocortisone 100 mg IV now and then 50 every 8.
-
Continue Levophed-wean down as able
Status post significant IV fluid resuscitation, hold for more fluid boluses
Hold antihypertensive
Will follow renal function and electrolytes
Patient does not appear toxic
Did receive prophylactic antibiotics
On low-dose azithromycin for anti-inflammatory properties-pulmonary indication.
-
Mild hypoxemia: Possible subsegmental atelectasis
Chest x-ray without evidence of pulmonary edema. Left lower lobe abnormality likely atelectatic.
Incentive spirometry
Continue ox supplementation wean down as able.
-
Asthma: Not bronchospastic
Continue nebulizers
-
Hyperglycemia: With increased IV steroids will need insulin drip. This will be ordered.
Target blood sugar 140-180
-
DVT prophylaxis: Per surgery okay to restart apixaban
-
Regular diet
Aspiration precaution
-
Extensive discussion with family members at the bedside. Also patient was updated in detail by me.
-
Critical care statement: A total of 38 minutes of critical care time was provided for this patient today. This includes management of unstable vital signs, evaluation of the patient at bedside, reviewing the patient's pertinent medical records
including ventilator settings, arterial blood gases, radiographs, microbiology, laboratory evaluations and discussion with primary team, critical care nursing, and respiratory therapy.
[2024-01-31] MEDS: ROXICODONE 5 MG PO (13:20)
[2024-01-31 13:21] LABS: Magnesium 2.4 mg/dl (1.6-2.3)
[2024-01-31] MEDS: OCUVITE SOFTGEL PO (13:25)
[2024-01-31] MEDS: DELTASONE PO (13:25)
[2024-01-31] MEDS: VITAMIN B-12 PO (13:25)
[2024-01-31] MEDS: VITAMIN D3 (cholecalciferol) PO (13:25)
[2024-01-31] MEDS: VITAMIN C PO (13:25)
[2024-01-31] MEDS: SOLU-CORTEF 100 MG IV (14:06)
[2024-01-31] MEDS: NOVOLIN R INSULIN INFUSION 100 IV ×2 (14:44→21:13)
[2024-01-31 14:55] LABS: Glucose - Point of Care 327 mg/dl (70-99)
[2024-01-31 14:57] LABS: INR 1.36; PT 16.6 Sec (11.4-14.6)
[2024-01-31 14:58] LABS: APTT 29.7 Sec (23.4-35.0)
[2024-01-31] MEDS: NOVOLIN R 6 UNITS IV (15:07)
--- NOTE | 2024-01-31 15:28 | PTCARENOTE ---
pt received form pacu. pt aaox3. states pain in right hip. pain med given as ordered. chg bath done. right hip dressing c/d/i. hip immobilizer in place. ivf and levo running as ordered. pt inc of urine. pure wick in place. insulin gtt
started as ordered. pt family at bedside updated on pt condition and plan of care.
[2024-01-31 15:46] LABS: Glucose - Point of Care 345 mg/dl (70-99)
[2024-01-31] MEDS: SOLU-CORTEF IV (16:18)
[2024-01-31 16:41] LABS: Glucose - Point of Care 339 mg/dl (70-99)
[2024-01-31] MEDS: NOVOLOG FLEXPEN 4 UNITS SC (16:45)
[2024-01-31 17:41] LABS: Glucose - Point of Care 224 mg/dl (70-99)
[2024-01-31] MEDS: PULMICORT INH (18:02)
[2024-01-31] MEDS: DUONEB INH (18:02)
[2024-01-31 18:43] LABS: Glucose - Point of Care 209 mg/dl (70-99)
[2024-01-31 19:45] LABS: Glucose - Point of Care 213 mg/dl (70-99)
[2024-01-31] MEDS: ANCEF 5 IV (19:51)
--- NOTE | 2024-01-31 20:00 | PTCARENOTE ---
Received pt resting in bed, AAOx3, pleasant. Afib on tele, HR 90-100s. On Levophed gtt to maintain MAP >65- see worklist. Foot pumps in place, + pulses. Afebrile. On 6L NC, lungs CTA, dim at bases. Spo2 95%. + bowel sounds. Regular diet. Purewick in
place. Yellow urine. R hip dressing c/d/i with small area of shadowing. Immobilizer in place. NS @ 100ml/hr infusing. Insulin gtt per glycemic protocol- see worklist. Call zelaya in reach
[2024-01-31] MEDS: COLACE 100 MG PO (20:25)
[2024-01-31] MEDS: PAXIL 20 MG PO (20:25)
[2024-01-31] MEDS: ELIQUIS 5 MG PO (20:25)
[2024-01-31 20:38] LABS: Glucose - Point of Care 215 mg/dl (70-99)
[2024-01-31 21:35] LABS: Glucose - Point of Care 177 mg/dl (70-99)
[2024-01-31 22:44] LABS: Glucose - Point of Care 171 mg/dl (70-99)
[2024-01-31 23:45] LABS: Glucose - Point of Care 106 mg/dl (70-99)
[2024-02-01] VITALS (57 sets, daily range): BP systolic 83–143; BP diastolic 53–119; PULSE 98; O2SAT 92
[2024-02-01] MEDS: SOLU-CORTEF 50 MG IV ×2 (01:18→08:05)
[2024-02-01] MEDS: ANCEF 5 IV (01:18)
[2024-02-01] MEDS: DEXTROSE 50% SYRINGE 12.5 GRAMS IV ×2 (01:35→01:52)
[2024-02-01 01:47] LABS: Glucose - Point of Care 63 mg/dl (70-99)
[2024-02-01 02:01] LABS: Glucose - Point of Care 51 mg/dl (70-99)
--- NOTE | 2024-02-01 02:08 | PTCARENOTE ---
Glycemic protocol check at 0135 = 63. Pt. diaphoretic (she reports she is diaphoretic at baseline ever since having the flu earlier this year). D50 given per protocol, insulin gtt stopped. 15 min repeat = 51. More D50 given. 15 min repeat = 140. Pt.
very anxious about low BG. Reassured her. LAB COORDINATOR aware- instructed to continue to hold insulin gtt and repeat BG in 1 hour.
[2024-02-01 02:16] LABS: Glucose - Point of Care 140 mg/dl (70-99)
[2024-02-01 03:05] LABS: Glucose - Point of Care 163 mg/dl (70-99)
[2024-02-01 04:05] LABS: Hematocrit 38.9 % (37.0-47.0); Hemoglobin 13.2 g/dL (12.0-16.0); Mean Corp Hgb Conc. 33.9 g/dL (33.0-37.0); Mean Corpuscular Hgb 32.6 pg (27.0-31.0); Mean Platelet Volume 12.2 fL (7.4-10.4); Platelet Count 158 10^3/uL (130-400); Red Blood Cell Count 4.05 10^6/uL (4.20-5.40); Red Cell Dist. Width 14.5 % (11.5-14.5); White Blood Cell Count 22.6 10^3/uL (4.8-10.8)
[2024-02-01 04:36] LABS: Blood Urea Nitrogen 31 mg/dl (7-17); Calcium 9.1 mg/dl (8.4-10.2); Carbon Dioxide 26 mmol/L (22-30); Chloride 101 mmol/L (98-107); Estimated Creatinine Clearance 36 ml/min; Glucose 153 mg/dl (70-99); Magnesium 2.3 mg/dl (1.6-2.3); Potassium 4.2 mmol/L (3.5-5.1); Sodium 133 mmol/L (135-145); eGFR > 60.00
[2024-02-01] MEDS: LEVOPHED 250 IV (05:23)
--- NOTE | 2024-02-01 05:35 | PTCARENOTE ---
BG stable on 0300 repeat and AM lab work. Continue to hold insulin gtt per NATALY Peres. Pt. in better spirits this AM. No complaints of pain.
[2024-02-01] MEDS: PULMICORT 0.5 MG INH (07:54)
[2024-02-01] MEDS: DUONEB 3 ML INH (07:54)
[2024-02-01] MEDS: ZITHROMAX 250 MG PO (08:04)
[2024-02-01] MEDS: NSS 1000 IV (08:04)
[2024-02-01] MEDS: VITAMIN C 1000 MG PO (08:05)
[2024-02-01] MEDS: OCUVITE SOFTGEL 2 CAP PO (08:05)
[2024-02-01] MEDS: TYLENOL 650 MG PO ×2 (08:05→21:01)
[2024-02-01] MEDS: VITAMIN B-12 1000 MCG PO (08:05)
[2024-02-01] MEDS: ELIQUIS 5 MG PO ×2 (08:05→21:01)
[2024-02-01] MEDS: COLACE 100 MG PO ×2 (08:05→21:01)
[2024-02-01] MEDS: VITAMIN D3 (cholecalciferol) 25 MCG PO (08:05)
[2024-02-01] MEDS: NOVOLOG FLEXPEN SC ×2 (09:32→12:51)
[2024-02-01] MEDS: DELTASONE PO (09:37)
--- NOTE | 2024-02-01 09:37 | PTCARENOTE ---
pt aaox3. states some pain in right hip pain med given. right hip dressing c/d/i. min shadowing. nc4l. breath sounds diminished . pure wick in place. levo gtt turned off per protocol. ivf running as ordered. updated pt son on her condition.
spoke to dr Graves about insulin gtt sliding scale an po steroid. said to hold po steroid and insulin gtt. pt oob with 2 person assist to bathroom using hip precautions. no bm.
--- NOTE | 2024-02-01 10:17 | W.PN.INTV ---
Today's Communication / Plan
Recommendations
Continue hydrocortisone stress doses for additional 24 hours and discontinue if stable.
Transition back to prednisone at that time
Continue nebulizers which is her usual regimen
Wean down FiO2
Physical therapy
Occupational Therapy
Possible transfer to [facility] later today
Assessment
-
88-year-old woman admitted to the hospital 01/29/2024 after sustaining a fall. Found to have right hip fracture. Underwent hemiarthroplasty 01/31/2024. Transferred to the critical care unit with hypotension requiring vasopressors and hypoxemia.
Of note, patient has history of asthma, on low-dose steroids for quite some time. Last time seen in the pulmonary office 01/15/[address] Graves. Used to follow-up with Dr. Trejo.
We were consulted to see her in critical care unit on 01/31/2024
Hypotension/shock/hypoxemia-postoperatively.
ABG 7.30
Chest x-ray: 01/31/2024: No acute abnormalities. Mild left hemidiaphragm elevation-atelectasis versus pneumonia.
Shock: Cannot rule out relative adrenal insufficiency.
Mechanical fall with status post right hip fracture: Status post hemiarthroplasty 01/31/2024
Leukocytosis possibly reactive
Hyperglycemia
Conditions present prior admission:
Paroxysmal atrial fibrillation on Eliquis
Heart failure with preserved ejection fraction
Eyvuqi-jysmhec-fftdcpgzj 10 mg daily for quite some time.
First time seen by Dr. Graves 01/15/2024
Pulmicort/DuoNebs/Singulair/low-dose azithromycin for anti-inflammatory properties
Hypertension
Macular degeneration
Type 2 diabetes
Assessment and plan:
Clinically improved
Shock has resolved. Levophed has been discontinued.
Shock: Possibly distributive, possibly from relative adrenal insufficiency.
Patient takes 10 mg of prednisone on a daily basis for years.
Continue hydrocortisone 50 mg IV every 8 hours for additional 24 hours and then transition back to usual prednisone dose if patient is hemodynamically stable.
-
Continue gentle IV fluids as the patient is not eating much.
Hold antihypertensive
# Leukocytosis. Likely reactive. Patient does not appear toxic. Afebrile
Did receive prophylactic antibiotics
On low-dose azithromycin for anti-inflammatory properties-pulmonary indication.
-
Mild hypoxemia: Possible subsegmental atelectasis, this is improved.
Lung exam and relatively clear 02/01/2024.
Chest x-ray without evidence of pulmonary edema. Left lower lobe abnormality likely atelectatic.
Incentive spirometry
Continue ox supplementation wean down as able.
-
Asthma: Not bronchospastic-not on exacerbation.
Continue nebulizers: Budesonide/prednisone 10 mg in the outpatient setting.
DuoNebs twice a day and as needed.
This is her usual regimen.
-
Hyperglycemia: Insulin drip discontinued per
Continue insulin sliding scale.
Target blood sugar 140-180
-
DVT prophylaxis: Per surgery okay to restart apixaban
-
Regular diet
Aspiration precaution
-
Dr. Graves updated family members and patient on 01/31/2024.
Dr. Graves updated patient in detail 02/01/2024.
-
She will follow-up with Dr. Graves as previously scheduled after discharge.
-
If able to ambulate with physical therapy/remains of vasopressors and is stable will transfer to [facility] later today.
If transferred to [facility] critical care team will sign off and pulmonary will continue to follow briefly in the floors.
Subjective Dataa
Subjective Data
Date of Service:
Date of Service: February 01, 2024
Chief Complaint: General Office Associate Follow Up (Shock/hyperglycemia)
Subjective:
Patient this morning states that she feels better.
She was not able to sleep much overnight and feels tired
Denies lightheadedness
She was able to walk with assistance to the bathroom.
Has not moved her bowels.
Denies nausea vomiting or abdominal pain
Review of Systems
General: Fever (n)
Cardiopulmonary: Dyspnea (none at rest), Cough (n), Sputum Production (n) and Chest Pain
GI: Abdominal Pain (n) and Nausea (n)
Objective Data
Data Reviewed
Vital Signs / I&O / Oxygen:
Vital Signs
Temp Pulse Resp BP Pulse Ox
97.4 F 112 23 104/68 97
02/01/24 08:05 02/01/24 09:31 02/01/24 09:31 02/01/24 09:31 02/01/24 09:35
Intake and Output
01/31/24 02/01/24 02/02/24
06:59 06:59 06:59
Intake Total 900 / 900 2937.0 / 3044.5 307.5 / 307.5
Output Total 900 / 900 600 / 600
Balance 0 / 0 2337.0 / 2444.5 307.5 / 307.5
SaO2 97
Nasal Cannula flow liters per 4
minute
Physical Exam
General: Respiratory Distress (n), Comfortable and Other (Able to speak in full sentences)
HEENT: Normocephalic
Cardiovascular: S1-S2 and Regular Rhythm
Respiratory: Wheeze (Minimal, expiratory.) and Other (Good air movement.)
GI: Soft and Non Distended
Neurology: Awake and Alert
Skin: Other (Right hip incision intact, dressed, without hematoma.)
Labs/Micro/Reports
Lab Data
02/01/24 03:55
02/01/24 03:55
Laboratory Results
01/31/24 01/31/24
12:22 14:41
PT 16.6 H
INR 1.36
APTT 29.7
pH 7.37
pCO2 45 H
pO2 67 L
HCO3 26.0
O2 Delivery Level
--- NOTE | 2024-02-01 10:30 | W.PN.ORTHO ---
Today's Communication / Plan
-
88 yo F POD 1 s/p Right hip hemiarthroplasty, post op hypotension requiring pressor support
WBAT RLE
PT/OT- ambulate
DVT ppx: ok to resume eliquis
Medical management per primary team/intensivists
Pain control
Plan to follow up outpatient in 2-3 weeks with planned removal of florinda
Subjective
.
.:
Patient comfortable in bed this morning. Reports she was able to get out of bed and to the bathroom with help overnight.
Vital Signs and Labs
.
Vital Signs and Labs:
Lab Results
02/01/24 03:55
02/01/24 03:55
Temp Pulse Resp BP Pulse Ox
97.4 F 112 23 104/68 97
02/01/24 08:05 02/01/24 09:31 02/01/24 09:31 02/01/24 09:31 02/01/24 09:35
PT 16.6 Sec (11.4-14.6) H 01/31/24 14:41
INR 1.36 01/31/24 14:41
Physical Exam
-
MSK RLE
Leg soft and compressible with mild swelling thigh
Dressing with minimal bloody drainage
Abduction pillow in place
SILT in all distributions distally
+ehl/fhl, ankle df/pf
Leg lengths approximately equal
--- NOTE | 2024-02-01 10:37 | W.PN.HOSP.TC ---
Today's Communication/Plan
-
see bold
Assessment / Plan
Assessment / Plan
Gen: NAD, awake and alert
Eyes: EOMI, PERRLA, no scleral icterus.
Neck: supple.
CV: continues to remain irreg/irreg, +S1/S2, no m/r/g.
Resp: remains CTAB anteriorly
Skin: No rashes.
Neuro: remains CN 2-12 intact, non-focal.
Psych: Normal mood and affect.
CXR: No radiographic evidence of acute cardiopulmonary abnormality. No radiographic evidence for pulmonary edema.
CXR 01/31/24:
1. Moderate amount of focal opacity in the posterior basilar segment of the left lower lobe with associated mild volume loss in the left lung and an adjacent small left pleural effusion. Diagnostic possibilities are (1) left lower lobe
endobronchial mucous plugging with postobstructive atelectasis or (2) left lower lobe pneumonia.
2. Mild cardiomegaly without evidence for acute pulmonary edema.
Hypotension and hypoxemia:
-occurred post-op, was on 8L simple mask, now weaned to 4L NC O2
-technically pt had shock (distributive) requiring levophed. Levophed stopped 02/01/24 (did require up to 15mcg/kg/min).
-placed on stress dose steroids and transferred to ICU from PACU 01/31/24, cont stress dose steroids
-received aggressive IVFs, cont maintenance IVFs
Mechanical fall resulting in right femoral neck fracture:
-s/p R hemiarthroplasty 01/31/24
-ortho following
-case discussed with Dr. Romo, OK to resume Eliquis
Acute kidney injury:
-mild, prerenal secondary to diuretic
-Cr only 1.2 on admission from baseline 0.9, now 0.8
-resolved with IV fluids (IVFs stopped 01/30/24)
Hypercalcemia:
-resolved with IVFs
-Vit D/PTH normal
Paroxysmal atrial fibrillation
-cont Eliquis
-diltiazem on hold with hypotension
Chronic HFpEF:
-holding lasix/Jardiance with hypotension
Essential hypertension:
-holding Cardizem/Losartan/Lasix with hypotension
Asthma
-Continue albuterol, budesonide
-Continue prednisone
-Continue prophylactic azithromycin
Macular degeneration
Anxiety/depression
-Continue paroxetine
Osteoporosis
-Continue risedronate
Discussed with Dr. Graves. Pt's daughter updated at bedside.
FULL/SCDs
Total critical care time spent equals 32 minutes
Anticipated Discharge: > 48 hours
Subjective/Interval History
-
Date of Service: February 01, 2024
No new complaints.
Objective Data
-
Labs:
Laboratory Results
02/01/24
03:55
WBC 22.6 H
Hgb 13.2
Hct 38.9
Plt Count 158
Sodium 133 L D
Potassium 4.2
Chloride 101
Carbon Dioxide 26
BUN 31 H
Creatinine 0.9
Glucose 153 H
Calcium 9.1
Vital Signs:
Vital Signs
Temp Pulse Resp BP Pulse Ox
97.4 F 112 23 104/68 97
02/01/24 08:05 02/01/24 09:31 02/01/24 09:31 02/01/24 09:31 02/01/24 09:35
I&O
01/31/24 02/01/24 02/02/24
06:59 06:59 06:59
Intake Total 900 / 900 2937.0 / 3044.5 307.5 / 307.5
Output Total 900 / 900 600 / 600
Balance 0 / 0 2337.0 / 2444.5 307.5 / 307.5
--- NOTE | 2024-02-01 12:23 | W.PN.UPDATE ---
Update Note
Progress Note Update
Hyperglycemic.
Given significant hyperglycemia and hemodynamic instability. Discontinue IV corticosteroids per
Hold prednisone until tomorrow.
Insulin sliding scale
Will continue to follow closely.
Hopefully will not need insulin drip.
Patient tolerating diet, discontinue IV fluids.
[2024-02-01 12:29] LABS: Glucose - Point of Care 397 mg/dl (70-99)
[2024-02-01] MEDS: NOVOLOG FLEXPEN-MODERATE RESISTANCE 9 UNITS SC (12:46)
--- NOTE | 2024-02-01 13:17 | PTCARENOTE ---
pt oob in chair. ot commode had bm. helped back to bed. pt became nauseous and dry heaving. made aware luis enrique ordered.
--- NOTE | 2024-02-01 17:07 | W.PN.UPDATE ---
Update Note
Progress Note Update
Hemodynamically stable
No recurrent vasopressor
Zofran added for nausea and vomiting
Was transferred to [facility]
Pulmonary will continue to follow briefly for hypoxemia.
[2024-02-01] MEDS: NOVOLOG FLEXPEN-MODERATE RESISTANCE 5 UNITS SC (17:31)
[2024-02-01 17:42] LABS: Glucose - Point of Care 263 mg/dl (70-99)
[2024-02-01] MEDS: ZOFRAN 4 MG IV (18:18)
[2024-02-01] MEDS: COMPAZINE 5 MG IV (20:02)
[2024-02-01] MEDS: DUONEB INH (20:23)
[2024-02-01] MEDS: PULMICORT INH (20:23)
[2024-02-01] MEDS: PAXIL 20 MG PO (21:01)
[2024-02-01 22:34] LABS: Glucose - Point of Care 228 mg/dl (70-99)
[2024-02-02] VITALS (9 sets, daily range): BP systolic 88–131; BP diastolic 61–79; PULSE 121; O2SAT 94
--- NOTE | 2024-02-02 | PTCARENOTE ---
Received pt resting in bed, AAOx3, pleasant. VSS. On 4L NC, lungs CTA, dim at bases. Spo2 95%. + bowel sounds. Vomited small amt. brown. Compazine given w good relief. Pt did not wish to eat her dinner. Purewick in place. Yellow urine. R hip
dressing c/d/i with small area of shadowing. Immobilizer in place. Call zelaya in reach
[2024-02-02 05:00] LABS: Hematocrit 34.3 % (37.0-47.0); Hemoglobin 11.7 g/dL (12.0-16.0); Mean Corp Hgb Conc. 34.1 g/dL (33.0-37.0); Mean Corpuscular Hgb 32.3 pg (27.0-31.0); Mean Corpuscular Volume 94.8 fL (81.0-99.0); Platelet Count 178 10^3/uL (130-400); Red Blood Cell Count 3.62 10^6/uL (4.20-5.40); Red Cell Dist. Width 14.6 % (11.5-14.5); White Blood Cell Count 14.8 10^3/uL (4.8-10.8)
[2024-02-02 05:28] LABS: Blood Urea Nitrogen 42 mg/dl (7-17); Calcium 9.3 mg/dl (8.4-10.2); Carbon Dioxide 25 mmol/L (22-30); Chloride 102 mmol/L (98-107); Estimated Creatinine Clearance 32 ml/min; Glucose 194 mg/dl (70-99); Potassium 4.2 mmol/L (3.5-5.1); Sodium 133 mmol/L (135-145); eGFR 54.19
[2024-02-02] MEDS: DUONEB 3 ML INH ×2 (07:23→20:06)
[2024-02-02] MEDS: PULMICORT 0.5 MG INH ×2 (07:23→20:06)
[2024-02-02] MEDS: OCUVITE SOFTGEL 2 CAP PO (08:18)
[2024-02-02] MEDS: COLACE 100 MG PO ×2 (08:18→20:10)
[2024-02-02] MEDS: ELIQUIS 5 MG PO ×2 (08:18→20:10)
[2024-02-02] MEDS: DELTASONE 10 MG PO (08:18)
[2024-02-02] MEDS: VITAMIN C PO (08:19)
[2024-02-02] MEDS: VITAMIN D3 (cholecalciferol) PO (08:19)
[2024-02-02] MEDS: VITAMIN B-12 PO (08:19)
--- NOTE | 2024-02-02 08:25 | PN.DE.MGMTRT ---
Addendum entered and electronically signed by NATALY Bagley 02/02/24 15:30:
Pt has been started on IV Steroids- Dexa 4mg Q8 hrs.
Dr. Gu has adjusted her NovoLog dose to 10 units AC.
Will increase Lantus to 15 units @ HS.
Original Note:
Insulin Management
- -
02/02/2024: Diabetes management consult:
88 year old female admitted on 01/28 with Right Hip Fx s/p fall. PMH: HTN, PAF on Eliquis, HFpEF, Asthma, Macular degeneration and T2DM. She lives alone and uses a walker to ambulate at baseline. Takes Prednisone 10mg daily for Asthma and chronic
bronchitis. Glucose on admission 342, A1C 9.1%, Cr 1.0, eGFR 54.19. Was taking Jardiance 10mg daily [employer], states it was started 2 months ago. Reports she has a working meter, has been checking her blood sugar once a day in the morning with fasting
results of 100 to 117.
Pt awake, A/O x3, sitting up in chair c/o nausea and vomiting, Dtr- Aide at bedside, both able to discuss diabetes management.
POD #2 S/P Right hemiarthroplasty 01/31/24.
Noted for elevated blood sugars as high as 397 throughout day yesterday.
Was on IV steroids contributing to Hyperglycemia, steroids were tapered down to her home prednisone dose.
FBG 194, premeal range 172 to 397, requiring 5-9 units of corrective insulin
Will start NovoLog 5 units AC and Lantus 10 units @ HS. Cont low corrective with meals.
Pt states she lives alone and will not be able to manage administering insulin 4 times a day.
Goal is to transition to oral regimen in a day or two if Cr remains stable, pt was already taking Jardiance [employer].
Will cont to follow.
Diabetes History
- -
Type of Diabetes: 2
Pre-Admission Diabetes Regimen
02/02/24
04:17
Creatinine 1.0
Lab Results
Hemoglobin A1c 9.1 % (4.0-5.6) H 01/30/24 04:24
Insulin Pump Settings
IP Diabetes Regimen
02/01/24 02/01/24 02/01/24
12:18 17:30 22:22
Glucose
POC Glucose 397 H 263 H 228 H
02/02/24
04:17
Glucose 194 H
POC Glucose
Meal type: Breakfast
Amount consumed: 50%
Patient Education
[2024-02-02 08:39] LABS: Glucose - Point of Care 172 mg/dl (70-99)
--- NOTE | 2024-02-02 08:55 | W.PN.PUL3 ---
Today's Communication / Plan
-
Up OOB as tolerated
Budesonide + DuoNebs BID
Incentive spirometer encouraged
if secretions become difficult to expectorate then start flutter valve + chest PT - no issues currently with her sputum as she has a 'dry cough' and she sounds dry at bedside today - continue to monitor
PT/OT
Pain control
Pulmonary service will now sign off. We will arrange for outpatient follow up with Dr. Quesada. Please call back if there are any additional questions or concerns.
Assessment
-
88-year-old woman admitted to the hospital 01/29/2024 after sustaining a fall. Found to have right hip fracture. Underwent hemiarthroplasty 01/31/2024. Transferred to the critical care unit with hypotension requiring vasopressors and hypoxemia.
Of note, patient has history of asthma, on low-dose steroids for quite some time. Last time seen in the pulmonary office 01/15/[address] Graves. Used to follow-up with Dr. Trejo.
We were consulted to see her in critical care unit on 01/31/2024
Impression:
Hypotension/shock/hypoxemia-postoperatively - resolved
Chest x-ray: 01/31/2024: No acute abnormalities. Mild left hemidiaphragm elevation-atelectasis versus pneumonia.
Shock: Cannot rule out relative adrenal insufficiency.
Mechanical fall with status post right hip fracture: Status post hemiarthroplasty 01/31/2024
Leukocytosis possibly reactive
Hyperglycemia
Conditions present prior admission:
Paroxysmal atrial fibrillation on Eliquis
Heart failure with preserved ejection fraction
Ugcxfn-sgoywgu-aeyxcdrbb 10 mg daily for quite some time.
First time seen by Dr. Graves 01/15/2024
Pulmicort/DuoNebs/Singulair/low-dose azithromycin for anti-inflammatory properties
Hypertension
Macular degeneration
Type 2 diabetes
Assessment and plan:
Clinically improved and she is now on room air breathing comfortably
Shock has resolved. Levophed has been discontinued.
Shock: Possibly distributive, possibly from relative adrenal insufficiency.
Patient takes 10 mg of prednisone on a daily basis for years.
Switched from hydrocortisone to decadron --> wean as tolerated
-
# Leukocytosis. Likely reactive. Patient does not appear toxic. Afebrile
Trend WBC
Did receive prophylactic antibiotics
On low-dose azithromycin for anti-inflammatory properties-pulmonary indication - trend QTc occasionally with outpatient audiology
-
Mild hypoxemia: Possible subsegmental atelectasis, this is improved.
Lung exam and relatively clear 02/01/2024.
Chest x-ray without evidence of pulmonary edema. Left lower lobe abnormality likely atelectatic.
Incentive spirometry encouraged
She denies having any difficulty bringing up her phlegm, hence no role for mucolytics or chest PT at this time
Trend SpO2 and keep >90-94%
Considering her SpO2 is labile between 90-98%, check walking pulse oximetry prior to discharge
-
Asthma: Not bronchospastic-not on exacerbation.
Continue nebulizers: Budesonide/prednisone 10 mg in the outpatient setting.
DuoNebs twice a day and as needed + budesonide BID
This is her usual regimen.
-
Hyperglycemia: Insulin drip discontinued
Continue insulin sliding scale.
Target blood sugar >100 and <180
-
DVT prophylaxis: Per surgery okay to restart apixaban
-
Diabetic diet
Aspiration precautions
-
Dr. Graves updated family members and patient on 01/31/2024.
Dr. Graves updated patient in detail 02/01/2024.
Dr. Kimble updated the patient on 02/02/2024 and answered all her questions.
-
She will follow-up with Dr. Graves as previously scheduled after discharge which we will arrange.
Pulmonary service will now sign off. Please call back if there are any additional questions or concerns. Thank you for allowing us to be involved in the care of this patient.
Total time spent today was 35 minutes for this encounter. Time includes reviewing laboratory test/imaging results, reviewing pertinent medical records, obtaining and reviewing medical history, performing an appropriate exam, ordering medications,
tests and procedures. Time also includes documentation of this encounter, coordinating patient care and communicating with other healthcare professionals. Total time does not include separately billed tests performed on this date of service.
Subjective Data
-
Date of Service:
Date of Service: February 02, 2024
Chief Complaint: Pulmonary Follow Up
Subjective:
Seen this AM. She is doing well. Still has pain in her RLE. She is room air when I saw her and breathing comfortably. She denies COTA, abd pain, N/V/f/c. She sometimes has a cough but does not say she has a cough today.
Review of Systems
General: Other (negative unless mentioned above)
Objective Data
Data Reviewed
Vital Signs / I&O / Oxygen:
Vital Signs
Temp Pulse Resp BP Pulse Ox
98 F 124 16 115/74 94
02/02/24 14:55 02/02/24 14:55 02/02/24 14:55 02/02/24 14:55 02/02/24 14:55
Intake and Output
02/01/24 02/02/24 02/03/24
06:59 06:59 06:59
Intake Total 2937.0 / 3044.5 607.5 / 607.5 120 / 120
Output Total 600 / 600 400 / 400 100 / 100
Balance 2337.0 / 2444.5 207.5 / 207.5 20 / 20
SaO2 94
Nasal Cannula flow liters per 2
minute
Physical Exam
General: Respiratory Distress (negative) and Comfortable
HEENT: Normocephalic and Anicteric
Cardiovascular: S1-S2 and Peripheral Edema (negative)
Respiratory: Wheeze (negative), Crackles (Left base), Rhonchi (L-base to left middle lung field) and Accessory Resp Muscle Use
GI: Soft, Non Distended, Non Tender and Normal Bowel Sounds
Neurology: Awake and Alert
Skin: Warm, Dry and Cyanosis (negative)
Labs/Micro/Reports
Lab Data
02/02/24 04:17
02/02/24 04:17
--- NOTE | 2024-02-02 09:18 | PTCARENOTE ---
Recd report bed available, assessed. report given to next RN, awaiting breakfast tray prior to moving. assessed. skin warm and dry. foot pumps maintained. aquacell intact, softly puffy, drainage marked. in good spirits. c/o mild ongoing
nausea. pulse ox 99 on 3l, decreased to 2l, difficult at times to obtain pleth. resting when undisturbed.
--- NOTE | 2024-02-02 09:32 | W.PN.HOSP.TC ---
Today's Communication/Plan
-
IV steroids. Chest x-ray. Increase insulin.
Assessment / Plan
Assessment / Plan
Gen: NAD, awake and alert
Eyes: EOMI, PERRLA, no scleral icterus.
Neck: supple.
CV: continues to remain irreg/irreg, +S1/S2, no m/r/g.
Resp: Bilateral wheezes, no crackles.
Skin: No rashes.
Neuro: remains CN 2-12 intact, non-focal.
Psych: Normal mood and affect.
CXR: No radiographic evidence of acute cardiopulmonary abnormality. No radiographic evidence for pulmonary edema.
CXR 01/31/24:
1. Moderate amount of focal opacity in the posterior basilar segment of the left lower lobe with associated mild volume loss in the left lung and an adjacent small left pleural effusion. Diagnostic possibilities are (1) left lower lobe
endobronchial mucous plugging with postobstructive atelectasis or (2) left lower lobe pneumonia.
2. Mild cardiomegaly without evidence for acute pulmonary edema.
A/P:
Active bronchospasm:
Suspect related to asthma, cannot rule out mild volume overload from hydration.
We will obtain a chest x-ray today
Check Pro-Edvin and BNP
Hold oral prednisone and change to IV dexamethasone
Continue bronchodilators
Updated daughter at bedside
Diabetes mellitus type 2:
NovoLog 10 units AC to compensate with IV steroids
Lantus increased to 15 units daily
Hypotension and hypoxemia:
-Improved
-Transferred from ICU to [facility] last evening.
-Hemodynamically stable
Prior to today:
-occurred post-op, was on 8L simple mask, now weaned to 4L NC O2
-technically pt had shock (distributive) requiring levophed. Levophed stopped 02/01/24AM (did require up to 15mcg/kg/min).
-placed on stress dose steroids and transferred to ICU from PACU 01/31/24, cont stress dose steroids
-received aggressive IVFs, cont maintenance IVFs
Mechanical fall resulting in right femoral neck fracture:
-s/p R hemiarthroplasty 01/31/24
-ortho following
-case discussed with Dr. Romo, OK to resume Eliquis
Acute kidney injury:
-mild, prerenal secondary to diuretic
-Cr only 1.2 on admission from baseline 0.9, now 0.8
-resolved with IV fluids (IVFs stopped 01/30/24AM)
Hypercalcemia:
-resolved with IVFs
-Vit D/PTH normal
Paroxysmal atrial fibrillation
-cont Eliquis
-diltiazem on hold with hypotension
Chronic HFpEF:
-holding lasix/Jardiance with hypotension
Essential hypertension:
-holding Cardizem/Losartan/Lasix with hypotension
Asthma
-Continue albuterol, budesonide
-Continue prednisone
-Continue prophylactic azithromycin
Macular degeneration
Anxiety/depression
-Continue paroxetine
Osteoporosis
-Continue risedronate
FULL/SCDs
Total time spent on today's encounter was 52 minutes which included time spent in counseling the patient/family regarding diagnosis and treatment plan as listed above, goals of care, and symptom management. Case was discussed with nursing staff,
specialists, and care coordinators/case management. All labs and imaging personally reviewed by me. Remainder the time spent in detailed review of previous records, lab data, imaging, and other medical provider documentation.
Anticipated Discharge: > 48 hours
Subjective/Interval History
-
Date of Service: February 02, 2024
Patient with some hip discomfort. She does describe some mild dyspnea and some wheezing. Afebrile.
Objective Data
-
Labs:
Laboratory Results
02/02/24
04:17
WBC 14.8 H
Hgb 11.7 L
Hct 34.3 L
Plt Count 178
Sodium 133 L
Potassium 4.2
Chloride 102
Carbon Dioxide 25
BUN 42 H
Creatinine 1.0
Glucose 194 H
Calcium 9.3
Vital Signs:
Vital Signs
Temp Pulse Resp BP Pulse Ox
98.2 F 124 21 93/61 98
02/02/24 08:00 02/02/24 08:00 02/02/24 08:00 02/02/24 08:00 02/02/24 08:28
I&O
02/01/24 02/02/24 02/03/24
06:59 06:59 06:59
Intake Total 2937.0 / 3044.5 607.5 / 607.5
Output Total 600 / 600 400 / 400
Balance 2337.0 / 2444.5 207.5 / 207.5
--- NOTE | 2024-02-02 09:45 | PTCARENOTE ---
Pt transferred from the ICU via bed. Transport was w/o incident. Pt is AAOx3, HR irreg in the 90's. Pt w/known AFib. Lungs are decreased, Pt with nausea following breakfast, will medicate as needed. Pt denies pain at this time. Pt's right hip with
Aquacell dressing intact with old dried drainage noted. VSS, Pt had been hypotensive this am at 93/61. Upon arrival to the floor BP 121/79, HR 91. Pt instructed on plan of care. Pt verbalized understanding of instructions. Call zelaya is within reach.
--- NOTE | 2024-02-02 09:52 | TRANSFER ---
tray reordered from kitchen, glucose noted, slid into new bed and transferred via bed and oxygen to new room 2106, handoff bedside to next RN. Call zelaya at side, questions answered, in good appreciative spirits.
[2024-02-02] MEDS: NOVOLOG FLEXPEN 5 UNITS SC ×2 (10:06→14:39)
[2024-02-02] MEDS: NOVOLOG FLEXPEN-MODERATE RESISTANCE 1 UNITS SC ×2 (10:07→17:59)
[2024-02-02] MEDS: ZOFRAN 4 MG IV (12:49)
--- NOTE | 2024-02-02 13:07 | CM ---
CM following re: discharge planning.
Reviewed pt's chart, met with pt and pt's daughter Madelin at bedside.
Pt is POD 2 s/p Right hip hemiarthroplasty. Per MD pt is doing well and will be downgraded from ICU level of care.
PT and OT evaluations noted - SNF level of care recommended.both pt and her daughter are aware, expressed their agreement with recommendations. Pt's daughter stated that pt's son has POA and he makes all decisions for the pt. Pt's daughter stated
that she and her brother are looking for a SNF that can offer an assisted living level of care. A list of SNFs with an options of assisted living level of care provided to pt and her daughter. Pt's daughter stated she will review it with her brother
and they will come up with choices.
D/C plan: Preferred SNF. A list of SNFs provided.
CM will follow to assist pt with discharge to a preferred SNF.
[2024-02-02 14:32] LABS: Glucose - Point of Care 232 mg/dl (70-99)
[2024-02-02] MEDS: NOVOLOG FLEXPEN-MODERATE RESISTANCE 3 UNITS SC (14:33)
[2024-02-02] MEDS: NOVOLOG FLEXPEN SC (14:38)
[2024-02-02 14:43] LABS: Urine Albumin Trace (Neg - Trace); Urine Bilirubin Negative (Negative); Urine Character Clear (Clear); Urine Color Yellow; Urine Glucose 3+ (Negative); Urine Ketone Trace (Negative); Urine Leukocyte Negative (Negative); Urine Nitrite Negative (Negative); Urine Occult Blood Negative (Negative); Urine Specific Gravity 1.015 (<1.030); Urine Urobilinogen Negative (Neg - 1+)
[2024-02-02 16:18] LABS: NT-proBNP 4120 pg/ml
[2024-02-02 16:27] LABS: Procalcitonin 0.38 ng/ml (0.0-0.25)
--- NOTE | 2024-02-02 17:15 | W.PN.ORTHO ---
Today's Communication / Plan
-
88-year-old female now postop day 2 status post right hip hemiarthroplasty for femoral neck fracture doing well. He was transferred to [facility] yesterday
Weightbearing as tolerated right lower extremity
PT OT
Pain control
DVT prophylaxis: Resume Eliquis as previously prescribed
Medical management per primary team
Follow-up outpatient 2 to 3 weeks repeat evaluation with plan removal of florinda
Subjective
.
.:
Patient comfortable on edge of bed today. She reports improvement in pain. She was transferred to [facility].
Vital Signs and Labs
.
Vital Signs and Labs:
Lab Results
02/02/24 04:17
02/02/24 04:17
Temp Pulse Resp BP Pulse Ox
98 F 124 16 115/74 94
02/02/24 14:55 02/02/24 14:55 02/02/24 14:55 02/02/24 14:55 02/02/24 14:55
PT 16.6 Sec (11.4-14.6) H 01/31/24 14:41
INR 1.36 01/31/24 14:41
Physical Exam
-
Musculoskeletal right lower extremity
Moderate bloody drainage right dressing
Moderate swelling right thigh
Positive EHL, FHL, ankle dorsiflexion, plantarflexion
Brisk cap refill distally
[2024-02-02] MEDS: DECADRON 4 MG IV (17:37)
[2024-02-02 17:45] LABS: Glucose - Point of Care 152 mg/dl (70-99)
[2024-02-02] MEDS: NOVOLOG FLEXPEN 10 UNITS SC (17:59)
[2024-02-02 20:08] LABS: Glucose - Point of Care 77 mg/dl (70-99)
[2024-02-02 21:57] LABS: Glucose - Point of Care 112 mg/dl (70-99)
[2024-02-02] MEDS: PAXIL 20 MG PO (22:45)
[2024-02-02] MEDS: LANTUS 0.149999999999999994 UNITS SC (22:45)
[2024-02-02] MEDS: ROBITUSSIN DM 5 ML PO (23:15)
[2024-02-02] MEDS: MUCINEX 600 MG PO (23:15)
--- NOTE | 2024-02-02 23:47 | PTCARENOTE ---
pt reported feeling SOB and asking for neb treatment. pt SpO2=74% on room air. place pt on 3L of O2 = 97%. pt has a moist productive cough. lungs coarse w/ exp wheeze. informed respiratory - treatment given w/ +eff.,
pt was diaphoretic acchuck=77 - administered OJ w/ snack. blood sugar check at [id number].
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
[2024-02-03 03:09] LABS: Glucose - Point of Care 178 mg/dl (70-99)
[2024-02-03 06:32] LABS: Hematocrit 35.2 % (37.0-47.0); Hemoglobin 11.7 g/dL (12.0-16.0); Mean Corp Hgb Conc. 33.2 g/dL (33.0-37.0); Mean Corpuscular Volume 96.2 fL (81.0-99.0); Mean Platelet Volume 12.1 fL (7.4-10.4); Platelet Count 162 10^3/uL (130-400); Red Blood Cell Count 3.66 10^6/uL (4.20-5.40); Red Cell Dist. Width 14.6 % (11.5-14.5); White Blood Cell Count 14.4 10^3/uL (4.8-10.8)
[2024-02-03 07:00] LABS: Blood Urea Nitrogen 47 mg/dl (7-17); Calcium 9.7 mg/dl (8.4-10.2); Carbon Dioxide 25 mmol/L (22-30); Chloride 103 mmol/L (98-107); Estimated Creatinine Clearance 36 ml/min; Glucose 155 mg/dl (70-99); Potassium 4.7 mmol/L (3.5-5.1); Sodium 136 mmol/L (135-145); eGFR > 60.00
[2024-02-03 07:04] LABS: Glucose - Point of Care 182 mg/dl (70-99)
[2024-02-03] MEDS: PULMICORT 0.5 MG INH ×2 (07:18→19:59)
[2024-02-03] MEDS: DUONEB 3 ML INH ×2 (07:18→19:59)
--- NOTE | 2024-02-03 07:27 | PN.DE.MGMTRT ---
Insulin Management
- -
02/03/2024: Diabetes management consult Follow up:
Patient admitted on 01/28 with Right Hip Fx s/p fall. PMH: HTN, PAF on Eliquis, HFpEF, Asthma, Macular degeneration and T2DM. She lives alone and uses a walker to ambulate at baseline. Takes Prednisone 10mg daily for Asthma and chronic bronchitis.
Glucose on admission 342, A1C 9.1%, Cr 1.0, eGFR 54.19. Was taking Jardiance 10mg daily, states it was started 2 months ago. Reports she has a working meter, has been checking her blood sugar once a day in the morning with fasting results of 100 to
117.
Pt awake, A/O x3, sitting up in chair, able to discuss diabetes management.
POD #3 S/P Right hemiarthroplasty 01/31/24.
Patient received IV steroids contributing to Hyperglycemia, will receive additional 4 units dexamethasone tonight @ 2200.
Yesterday, AC novolog increased to 10 units, Lantus dose increased last HS to 15 units. 3AM glucose 178, FBG 182 today premeal range yesterday 77 to 232. HS glucose 77, patient was symptomatic
Will reduce AC NovoLog to 8 units and continue HS Lantus 15 units with low corrective with meals.
Pt states she lives alone, discussed importance of glucose control and the need for insulin at this time. Will ask nurse to start showing her the insulin pen.
Will follow and consider restarting Jardiance.
Diabetes History
- -
Type of Diabetes: 2
Pre-Admission Diabetes Regimen
02/03/24
05:27
Creatinine 0.9
Lab Results
Hemoglobin A1c 9.1 % (4.0-5.6) H 01/30/24 04:24
Insulin Pump Settings
IP Diabetes Regimen
02/02/24 02/02/24 02/02/24
08:28 14:30 17:43
Glucose
POC Glucose 172 H 232 H 152 H
02/02/24 02/02/24 02/03/24
20:07 21:54 03:07
Glucose
POC Glucose 77 112 H 178 H
02/03/24 02/03/24
05:27 07:02
Glucose 155 H
POC Glucose 182 H
Meal type: Dinner
Meal type: Breakfast
Amount consumed: 100%
Amount consumed: 20%
Patient Education
[2024-02-03 07:49] VITALS: BP 137/79
--- NOTE | 2024-02-03 08:04 | W.PN.HOSP.TC ---
Addendum entered and electronically signed by Jose Gu MD 02/03/24 16:02:
Acute hypoxic respiratory failure, postop.
Original Note:
Today's Communication/Plan
-
Steroid tapering. Pain control. Postop care. Discharge planning in progress
Assessment / Plan
Assessment / Plan
Gen: NAD, awake and alert
Eyes: EOMI, PERRLA, no scleral icterus.
Neck: supple.
CV: continues to remain irreg/irreg, +S1/S2, no m/r/g.
Resp: Bilateral wheezes, no crackles.
Skin: No rashes.
Musculoskeletal: Right hip surgery without hematoma or erythema.
Neuro: remains CN 2-12 intact, non-focal.
Psych: Normal mood and affect.
CXR: No radiographic evidence of acute cardiopulmonary abnormality. No radiographic evidence for pulmonary edema.
CXR 01/31/24:
1. Moderate amount of focal opacity in the posterior basilar segment of the left lower lobe with associated mild volume loss in the left lung and an adjacent small left pleural effusion. Diagnostic possibilities are (1) left lower lobe
endobronchial mucous plugging with postobstructive atelectasis or (2) left lower lobe pneumonia.
2. Mild cardiomegaly without evidence for acute pulmonary edema.
A/P:
Active bronchospasm with hypoxia/hypoxic respiratory insufficiency:
Suspect related to asthma--> improved
Change IV steroids to oral prednisone
Obtained a chest x-ray yesterday and no acute chest pathology.
Appreciated pulmonary follow-up
Check Pro-Edvin and BNP--> 0.38 and 4120 respectively
Continue bronchodilators
Updated daughter at bedside yesterday
Plan to discharge as soon as bed at rehab is available
Diabetes mellitus type 2:
NovoLog 10 units AC to compensate with IV steroids but can decrease to 8 units
Lantus continue 15 units daily
Will probably need less insulin as we taper down the steroids but as of now she will require it at least temporarily and can reevaluate as outpatient.
Hypotension and hypoxemia:
-Improved
-Transferred from ICU to [facility]
-Hemodynamically stable
Prior to today:
-occurred post-op, was on 8L simple mask, now weaned to 4L NC O2
-technically pt had shock (distributive) requiring levophed. Levophed stopped 02/01/24 (did require up to 15mcg/kg/min).
-placed on stress dose steroids and transferred to ICU from PACU 01/31/24, cont stress dose steroids
-received aggressive IVFs, cont maintenance IVFs
Mechanical fall resulting in right femoral neck fracture:
-s/p R hemiarthroplasty 01/31/24
-ortho following
-case discussed with Dr. Romo, OK to resume Eliquis
Acute kidney injury:
-mild, prerenal secondary to diuretic
-Cr only 1.2 on admission from baseline 0.9, now 0.8
-resolved with IV fluids (IVFs stopped 01/30/24)
Hypercalcemia:
-resolved with IVFs
-Vit D/PTH normal
Paroxysmal atrial fibrillation
-cont Eliquis
-diltiazem on hold with hypotension
Chronic HFpEF:
-holding lasix/Jardiance with hypotension
Essential hypertension:
-holding Cardizem/Losartan/Lasix with hypotension
Asthma
-Continue albuterol, budesonide
-Continue prednisone
-Continue prophylactic azithromycin
Macular degeneration
Anxiety/depression
-Continue paroxetine
Osteoporosis
-Continue risedronate
FULL/SCDs
Anticipated Discharge: Today
Subjective/Interval History
-
Date of Service: February 03, 2024
Patient feels better overall. Less shortness of breath and cough. Less pain overall.
Objective Data
-
Labs:
Laboratory Results
02/03/24
05:27
WBC 14.4 H
Hgb 11.7 L
Hct 35.2 L
Plt Count 162
Sodium 136
Potassium 4.7
Chloride 103
Carbon Dioxide 25
BUN 47 H
Creatinine 0.9
Glucose 155 H
Calcium 9.7
Vital Signs:
Vital Signs
Temp Pulse Resp BP Pulse Ox
97.4 F 106 16 137/79 99
02/03/24 07:49 02/03/24 07:49 02/03/24 07:49 02/03/24 07:49 02/03/24 07:49
I&O
02/02/24 02/03/24 02/04/24
06:59 06:59 06:59
Intake Total 607.5 / 607.5 1080 / 1080
Output Total 400 / 400 500 / 500
Balance 207.5 / 207.5 580 / 580
--- NOTE | 2024-02-03 09:09 | PN.CDI ---
CDI
- -
CDI:
Physician Documentation Request
Admit Date: 01/29/24 18:54
Dear Doctor Brittanie,
Please review the following and provide your response in the progress notes.
Clinical Indicators:
Pt admitted with displaced right femoral neck fracture s/p surgery on 01/30
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
Progress notes 01/31 & 02/01, ' hypoxemia: occurred post-op, was on 8L simple mask, now weaned to 4L NC O2...-placed on stress dose steroids and transferred to ICU from PACU 01/31/24, cont stress dose steroids....'
Progress note 02/02, ' She does describe some mild dyspnea and some wheezing...'
Patient care note 02/01 @ 0542, ' pt reported feeling SOB and asking for neb treatment. pt SpO2=74% on room air. place pt on 3L of O2 = 97%. pt has a moist productive cough. lungs coarse w/ exp wheeze. informed respiratory - treatment given w/
+eff....'
See Vitals trended below
01/31/24
12:05 01/31/24
20:00 02/01/24
06:00
SaO2 84
Flow liters per minute # 6
Nasal Cannula flow liters per minute 6
02/01/24
08:00 02/01/24
08:00 02/01/24
09:06
Resp Rate 28
Nasal Cannula flow liters per minute 4 2
02/01/24
09:35 02/01/24
11:45 02/01/24
12:15
Resp Rate 25 32
Nasal Cannula flow liters per minute 4
02/01/24
13:00 02/01/24
14:30 02/02/24
02:00
Resp Rate 34 26
SaO2 86
02/02/24
07:27 02/02/24
08:28 02/02/24
19:55
SaO2 74
Nasal Cannula flow liters per minute 3 2
Clarify which of the following accurately represents the patient's respiratory status following surgery:
Acute pulmonary insufficiency (following surgery)
Acute Hypoxic respiratory Failure
Hypoxia only
Other
Additional information for Pulmonary Insufficiency:
Consider when patients require nursing home oxygen therapy postoperatively
Weaned off oxygen initially then requiring supplemental oxygen
No other definitive diagnosis to support the need for oxygen (COPD exac, CHF etc.)
Unable to wean from vent
When criteria for respiratory failure not present
May extend stay or require additional resources; may need home O2
Additional information for Respiratory Failure:
Recognized criteria for Respiratory Failure (Source: [facility] Hospitalist Jun/Jul 2013)
ABGs: (1 or more) Symptoms Indicate:
1. p)2 <60 or RA SPO2 <91% on RA 1. Tachypnea, SOB, dyspnea 1. Type as:
2. pCO2 50 and pH <7.35 2. Use of accessory muscles a. Hypoxic
3. pO2 decrease of pCO2 increase by 3. Pallor or cyanosis b. Hypercapnic
10 mmHg from baseline if known 4. Anxiety or restlessness 2. If due to procedure or due to another cause
5. Unable to speak in full sentences
Supplemental O2 of > 40% Intubation is not required
Use of terms such as suspected, likely, concern for, or probable (associated with a specific diagnosis that is being evaluated, monitored, or treated as if it exists) are acceptable and can be coded in the inpatient setting, when documented at the
time of discharge.
Thank you,
Ellen Velarde RN
CDI Specialist
[place] [employer]
Please use your independent medical judgment in providing your response.
--- NOTE | 2024-02-03 09:40 | W.PN.PUL.V3 ---
Today's Communication / Plan
-
Wean oxygen
Increase activity
Prednisone taper
Continue nebulizers
Outpatient pulmonary follow-up
Assessment
-
88-year-old woman admitted to the hospital 01/29/2024 after sustaining a fall. Found to have right hip fracture. Underwent hemiarthroplasty 01/31/2024. Transferred to the critical care unit with hypotension requiring vasopressors and hypoxemia.
Of note, patient has history of asthma, on low-dose steroids for quite some time. Last time seen in the pulmonary office 01/15/[address] Graves. Used to follow-up with Dr. Trejo.
We were consulted to see her in critical care unit on 01/31/2024
Impression:
Hypotension/shock/hypoxemia-postoperatively - resolved
Chest x-ray: 01/31/2024: No acute abnormalities. Mild left hemidiaphragm elevation-atelectasis versus pneumonia.
Shock: Cannot rule out relative adrenal insufficiency.
Mechanical fall with status post right hip fracture: Status post hemiarthroplasty 01/31/2024
Leukocytosis possibly reactive
Hyperglycemia
Conditions present prior admission:
Paroxysmal atrial fibrillation on Eliquis
Heart failure with preserved ejection fraction
Mfljtx-[id number] 10 mg daily for quite some time.
First time seen by Dr. Graves 01/15/2024
Pulmicort/DuoNebs/Singulair/low-dose azithromycin for anti-inflammatory properties
Hypertension
Macular degeneration
Type 2 diabetes
Assessment and plan:
Respiratory status slowly improving
Wean supplemental oxygen-currently on 3 L-patient was on room air while being bathed without shortness of breath
Attempt to wean to room air
Incentive spirometry
Nebulizers-DuoNebs and budesonide
Mucolytic's
Prednisone 40 mg with slow taper
Mucus clearing devices
Cultures reviewed
Observe off antibiotics
Azithromycin for anti-inflammatory properties
Monitor blood sugar
Insulin supplementation as needed
DVT prophylaxis-on Eliquis
Nutrition
Early mobilization/physical therapy
She is stable from a pulmonary perspective-pulmonary will sign off-please call with questions
She will follow-up with Dr. Graves as previously scheduled after discharge which we will arrange.
Subjective Data
-
Date of Service:
Date of Service: February 03, 2024
Chief Complaint: Pulmonary Follow Up and Dyspnea Follow Up
Subjective:
Denies any significant shortness of breath at rest, now on room air while being bathed, no chest pain or abdominal pain
Review of Systems
General: Other (Per HPI)
Objective Data
Data Reviewed
Vital Signs / I&O:
Vital Signs
Temp Pulse Resp BP Pulse Ox
97.4 F 106 16 137/79 99
02/03/24 07:49 02/03/24 07:49 02/03/24 07:49 02/03/24 07:49 02/03/24 07:49
Intake and Output
02/02/24 02/03/24 02/04/24
06:59 06:59 06:59
Intake Total 607.5 / 607.5 1080 / 1080
Output Total 400 / 400 500 / 500
Balance 207.5 / 207.5 580 / 580
SaO2: 99
Nasal Cannula flow liters per minute: 3
Physical Exam
General: Respiratory Distress (negative) and Comfortable
HEENT: Normocephalic and Anicteric
Cardiovascular: Regular Rhythm and Peripheral Edema (negative)
Respiratory: Wheeze (negative), Crackles (Left base), Rhonchi (L-base to left middle lung field), Non-Labored Respirations, Accessory Resp Muscle Use and Stridor (n)
GI: Soft, Non Distended, Non Tender and Normal Bowel Sounds
Neurology: Awake and Alert
Skin: Warm, Dry, Cyanosis (negative), Jaundice (n) and Rash (n)
Labs/Micro/Reports
Lab Data
02/03/24 05:27
02/03/24 05:27
[2024-02-03] MEDS: NOVOLOG FLEXPEN-LOW RESISTANCE 1 UNITS SC ×2 (10:13→12:39)
[2024-02-03] MEDS: NOVOLOG FLEXPEN 8 UNITS SC ×3 (10:13→17:12)
[2024-02-03] MEDS: VITAMIN B-12 1000 MCG PO (10:15)
[2024-02-03] MEDS: ZITHROMAX 250 MG PO (10:15)
[2024-02-03] MEDS: MUCINEX 600 MG PO ×2 (10:15→20:53)
[2024-02-03] MEDS: VITAMIN D3 (cholecalciferol) 25 MCG PO (10:15)
[2024-02-03] MEDS: ELIQUIS 5 MG PO ×2 (10:15→20:53)
[2024-02-03] MEDS: DELTASONE 40 MG PO (10:15)
[2024-02-03] MEDS: OCUVITE SOFTGEL 2 CAP PO (10:16)
[2024-02-03] MEDS: VITAMIN C PO ×2 (10:16→10:21)
[2024-02-03] MEDS: COLACE 100 MG PO ×2 (10:16→20:53)
[2024-02-03 11:54] LABS: Glucose - Point of Care 176 mg/dl (70-99)
[2024-02-03 12:40] VITALS: BP 125/76; PULSE 104; O2SAT 99
--- NOTE | 2024-02-03 13:00 | PTCARENOTE ---
Diabetes Education-Met with Aide in her room, daughter Aide and son, Milton (POA) also present. Current A1C 9.1%. Discussed need for insulin and my role in teaching about the medication and how to inject. Milton states that his mom will be
going to rehab and then they are looking to place her as she is no longer able to live independently. He states if I teach her now, she will not retain. I appreciate the honesty and did not continue education.
[2024-02-03 13:05] VITALS: BP 125/76; PULSE 104; O2SAT 99
--- NOTE | 2024-02-03 14:46 | CM ---
CM spoke with patients daughter, daughter reports she is with her brother, Milton, who is POA and asked CM speak with brother. CM spoke with Milton regarding SNF to send referrals to. Milton reports they are looking for a facility where patient
can transition to LTC, reports patient will need to apply for [place]. Milton reports patient lives [place] to [place], requesting referral to [facility]. CM discussed sending referral to multiple facilities as bed availability is limited, Milton requesting
to meet with CM tomorrow at 9:30 a.m. to discuss facilities with CM. CM will send referral to [facility], patient will require auth for SNF and MA financial application. CM reports per Hospitalist, patient is clear for discharge. CM will
continue to follow for discharge planning needs.
Plan; SNF, will require auth, pending accepting facility.
[2024-02-03 15:10] VITALS: BP 124/74
[2024-02-03 16:23] LABS: Glucose - Point of Care 89 mg/dl (70-99)
[2024-02-03] MEDS: ZOFRAN ODT (ORALLY DISINTEGRATING) 4 MG PO (17:12)
[2024-02-03] MEDS: PROTONIX 40 MG PO (17:12)
[2024-02-03] MEDS: NOVOLOG FLEXPEN-LOW RESISTANCE SC (17:12)
[2024-02-03 19:02] VITALS: BP 142/84
[2024-02-03] MEDS: ZOFRAN 4 MG IV (20:57)
[2024-02-03] MEDS: PAXIL 20 MG PO (21:29)
[2024-02-03 21:30] LABS: Glucose - Point of Care 121 mg/dl (70-99)
[2024-02-03] MEDS: DECADRON 4 MG IV (21:39)
[2024-02-03] MEDS: LANTUS 0.149999999999999994 UNITS SC (21:40)
[2024-02-03 23:31] VITALS: BP 122/75
[2024-02-04] MEDS: ZOFRAN ODT (ORALLY DISINTEGRATING) 4 MG PO ×3 (00:17→16:53)
[2024-02-04 05:21] VITALS: BMI 26.9
[2024-02-04 06:37] LABS: Hematocrit 35.5 % (37.0-47.0); Hemoglobin 11.9 g/dL (12.0-16.0); Mean Corp Hgb Conc. 33.5 g/dL (33.0-37.0); Mean Corpuscular Hgb 32.2 pg (27.0-31.0); Mean Corpuscular Volume 95.9 fL (81.0-99.0); Mean Platelet Volume 11.4 fL (7.4-10.4); Platelet Count 193 10^3/uL (130-400); Red Cell Dist. Width 14.6 % (11.5-14.5); White Blood Cell Count 12.9 10^3/uL (4.8-10.8)
[2024-02-04 07:00] LABS: Blood Urea Nitrogen 48 mg/dl (7-17); Calcium 9.9 mg/dl (8.4-10.2); Carbon Dioxide 25 mmol/L (22-30); Chloride 101 mmol/L (98-107); Estimated Creatinine Clearance 45 ml/min; Glucose 126 mg/dl (70-99); Potassium 5.2 mmol/L (3.5-5.1); Sodium 134 mmol/L (135-145); eGFR > 60.00
[2024-02-04 07:15] VITALS: BP 121/83
[2024-02-04 07:21] LABS: Glucose - Point of Care 137 mg/dl (70-99)
--- NOTE | 2024-02-04 07:53 | PN.DE.MGMTRT ---
Insulin Management
- -
02/04/2024: Diabetes management consult Follow up:
Patient admitted on 01/28 with Right Hip Fx s/p fall. PMH: HTN, PAF on Eliquis, HFpEF, Asthma, Macular degeneration and T2DM. She lives alone and uses a walker to ambulate at baseline. Takes Prednisone 10mg daily for Asthma and chronic bronchitis.
Glucose on admission 342, A1C 9.1%, Cr 1.0, eGFR 54.19. Was taking Jardiance 10mg daily, states it was started 2 months ago. Reports she has a working meter, has been checking her blood sugar once a day in the morning with fasting results of 100 to
117.
Pt awake, A/O x3, sitting up in chair, able to discuss diabetes management.
POD #4 S/P Right hemiarthroplasty 01/31/24.
Patient received IV steroids contributing to Hyperglycemia, did receive additional 4 units dexamethasone 02/02 @ 2200.
02/01, AC novolog increased to 10 units, Lantus dose increased HS to 15 units. 3AM glucose 178, FBG 182 today premeal range yesterday 77 to 232. HS glucose 77, patient was symptomatic
Last dose of dexamethasone given last evening; will reduce AC NovoLog to 6 units and continue HS Lantus 15 units with low corrective with meals.
Patients daughter and son have decided SNF then transition to LTC. Patient will not need to learn self injection.
Diabetes History
- -
Type of Diabetes: 2 requiring insulin
Pre-Admission Diabetes Regimen
02/04/24
05:37
Creatinine 0.8
Lab Results
Hemoglobin A1c 9.1 % (4.0-5.6) H 01/30/24 04:24
Insulin Pump Settings
IP Diabetes Regimen
02/03/24 02/03/24 02/03/24
11:52 16:21 21:28
Glucose
POC Glucose 176 H 89 121 H
02/04/24 02/04/24
05:37 07:19
Glucose 126 H
POC Glucose 137 H
Meal type: Dinner
Meal type: Breakfast
Amount consumed: 100%
Patient Education
[2024-02-04] MEDS: DUONEB 3 ML INH ×2 (07:56→19:58)
[2024-02-04] MEDS: PULMICORT 0.5 MG INH ×2 (07:56→19:49)
--- NOTE | 2024-02-04 08:11 | W.PN.HOSP.TC ---
Today's Communication/Plan
-
Postop care. PPI. Discharge planning in progress
Assessment / Plan
Assessment / Plan
Gen: NAD, awake and alert
Eyes: EOMI, PERRLA, no scleral icterus.
Neck: supple.
CV: continues to remain irreg/irreg, +S1/S2, no m/r/g.
Resp: Bilateral wheezes, no crackles.
Skin: No rashes.
Musculoskeletal: Right hip surgery without hematoma or erythema.
Neuro: remains CN 2-12 intact, non-focal.
Psych: Normal mood and affect.
CXR: No radiographic evidence of acute cardiopulmonary abnormality. No radiographic evidence for pulmonary edema.
CXR 01/31/24:
1. Moderate amount of focal opacity in the posterior basilar segment of the left lower lobe with associated mild volume loss in the left lung and an adjacent small left pleural effusion. Diagnostic possibilities are (1) left lower lobe
endobronchial mucous plugging with postobstructive atelectasis or (2) left lower lobe pneumonia.
2. Mild cardiomegaly without evidence for acute pulmonary edema.
A/P:
GERD:
Continue PPI
Add sucralfate
Mild hyperkalemia:
With the start of diuretics, no need to treat unless it gets worse and will repeat potassium after diuresis.
Active bronchospasm with hypoxia/hypoxic respiratory insufficiency:
Improved
Suspect related to asthma
On 2 L of oxygen now
Cont oral prednisone for a 5 days course
Obtained a chest x-ray and no acute chest pathology.
Appreciated pulmonary follow-up
Check Pro-Edvin and BNP--> 0.38 and 4120 respectively
Continue bronchodilators
Updated daughter at bedside prior
Plan to discharge as soon as bed at rehab is available
Diabetes mellitus type 2:
NovoLog can decrease to 6 units
Lantus continue 15 units daily
Will probably need less insulin as we taper down the steroids but as of now she will require it at least temporarily and can reevaluate as outpatient.
Hypotension and hypoxemia:
-Improved
-Transferred from ICU to [facility]
-Hemodynamically stable
Prior to today:
-occurred post-op, was on 8L simple mask, now weaned to 4L NC O2
-technically pt had shock (distributive) requiring levophed. Levophed stopped 02/01/24 (did require up to 15mcg/kg/min).
-placed on stress dose steroids and transferred to ICU from PACU 01/31/24, cont stress dose steroids
-received aggressive IVFs, cont maintenance IVFs
Mechanical fall resulting in right femoral neck fracture:
-s/p R hemiarthroplasty 01/31/24
-ortho following
-case discussed with Dr. Romo, OK to resume Eliquis
Acute kidney injury:
-mild, prerenal secondary to diuretic
-Cr only 1.2 on admission from baseline 0.9, now 0.8
-resolved with IV fluids (IVFs stopped 01/30/24)
Hypercalcemia:
-resolved with IVFs
-Vit D/PTH normal
Paroxysmal atrial fibrillation
-cont Eliquis
-diltiazem on hold with hypotension, might resume soon
Chronic HFpEF:
-Resume lasix/
-Soon will resume Jardiance
Essential hypertension:
-holding Cardizem/Losartan with recent hypotension, might resume soon
Asthma
-Continue albuterol, budesonide
-Continue prednisone
-Continue prophylactic azithromycin
Macular degeneration
Anxiety/depression
-Continue paroxetine
Osteoporosis
-Continue risedronate
FULL/SCDs
Anticipated Discharge: 24 - 48 hours
Subjective/Interval History
-
Date of Service: February 04, 2024
Patient complains of GERD symptoms. No chest pain or shortness of breath
Objective Data
-
Labs:
Laboratory Results
02/04/24
05:37
WBC 12.9 H
Hgb 11.9 L
Hct 35.5 L
Plt Count 193
Sodium 134 L
Potassium 5.2 H
Chloride 101
Carbon Dioxide 25
BUN 48 H
Creatinine 0.8
Glucose 126 H
Calcium 9.9
Vital Signs:
Vital Signs
Temp Pulse Resp BP Pulse Ox
97.3 F 80 16 121/83 97
02/04/24 07:15 02/04/24 08:06 02/04/24 08:06 02/04/24 07:15 02/04/24 08:06
I&O
02/03/24 02/04/24 02/05/24
06:59 06:59 06:59
Intake Total 1080 / 1080 1979
Output Total 500 / 500
Balance 580 / 580 1979
[2024-02-04] MEDS: NOVOLOG FLEXPEN-LOW RESISTANCE SC (08:21)
[2024-02-04] MEDS: MUCINEX 600 MG PO ×2 (08:22→20:50)
[2024-02-04] MEDS: OCUVITE SOFTGEL 2 CAP PO (08:22)
[2024-02-04] MEDS: DELTASONE 40 MG PO (08:22)
[2024-02-04] MEDS: VITAMIN D3 (cholecalciferol) 25 MCG PO (08:22)
[2024-02-04] MEDS: COLACE 100 MG PO ×2 (08:22→20:50)
[2024-02-04] MEDS: PROTONIX 40 MG PO (08:22)
[2024-02-04] MEDS: ELIQUIS 5 MG PO ×2 (08:23→20:50)
[2024-02-04] MEDS: LASIX 40 MG PO ×2 (08:23→20:50)
[2024-02-04] MEDS: VITAMIN C 1000 MG PO (08:23)
[2024-02-04] MEDS: VITAMIN B-12 1000 MCG PO (08:23)
[2024-02-04] MEDS: NOVOLOG FLEXPEN 6 UNITS SC ×3 (08:24→17:38)
[2024-02-04] MEDS: NOVOLOG FLEXPEN SC (08:34)
[2024-02-04 11:30] VITALS: BP 121/80; BP 128/87; PULSE 107; PULSE 51; O2SAT 90; O2SAT 94
[2024-02-04 11:47] LABS: Glucose - Point of Care 209 mg/dl (70-99)
--- NOTE | 2024-02-04 11:50 | CM ---
Wean O2, Prednisone taper. Met with son to discuss discharge plan of care. Therapy recommendation for STR. Son has chosen STR preferences via the [employer] website. Referrals to be forwarded. Potential for transition from STR to LTC.
[2024-02-04] MEDS: NOVOLOG FLEXPEN-LOW RESISTANCE 2 UNITS SC (12:15)
[2024-02-04] MEDS: CARAFATE SUSPENSION 1 GM PO ×3 (12:15→20:56)
[2024-02-04 15:05] VITALS: BP 148/94
[2024-02-04 17:03] LABS: Glucose - Point of Care 184 mg/dl (70-99)
[2024-02-04] MEDS: NOVOLOG FLEXPEN-LOW RESISTANCE 1 UNITS SC (17:39)
[2024-02-04] MEDS: PAXIL 20 MG PO (20:57)
[2024-02-04 21:07] LABS: Glucose - Point of Care 153 mg/dl (70-99)
[2024-02-04] MEDS: LANTUS 0.149999999999999994 UNITS SC (21:08)
[2024-02-04 23:27] VITALS: BP 128/79
[2024-02-05 05:44] LABS: Hematocrit 36.7 % (37.0-47.0); Hemoglobin 12.1 g/dL (12.0-16.0); Mean Corpuscular Hgb 31.5 pg (27.0-31.0); Mean Corpuscular Volume 95.6 fL (81.0-99.0); Mean Platelet Volume 11.3 fL (7.4-10.4); Platelet Count 219 10^3/uL (130-400); Red Blood Cell Count 3.84 10^6/uL (4.20-5.40); Red Cell Dist. Width 14.4 % (11.5-14.5); White Blood Cell Count 13.4 10^3/uL (4.8-10.8)
[2024-02-05 06:11] VITALS: BMI 26.4
[2024-02-05 06:33] LABS: Blood Urea Nitrogen 54 mg/dl (7-17); Calcium 9.5 mg/dl (8.4-10.2); Carbon Dioxide 29 mmol/L (22-30); Chloride 99 mmol/L (98-107); Estimated Creatinine Clearance 32 ml/min; Glucose 42 mg/dl (70-99); Potassium 4.4 mmol/L (3.5-5.1); Sodium 136 mmol/L (135-145); eGFR 54.19
[2024-02-05 06:56] LABS: Glucose - Point of Care 60 mg/dl (70-99)
[2024-02-05 07:16] LABS: Glucose - Point of Care 74 mg/dl (70-99)
[2024-02-05] MEDS: NOVOLOG FLEXPEN-LOW RESISTANCE SC (07:18)
[2024-02-05] MEDS: JARDIANCE PO (07:18)
[2024-02-05] MEDS: PULMICORT 0.5 MG INH ×2 (07:31→20:02)
[2024-02-05] MEDS: DUONEB 3 ML INH ×2 (07:31→20:02)
[2024-02-05 07:46] VITALS: BP 133/72
[2024-02-05] MEDS: MUCINEX 600 MG PO ×2 (07:56→20:58)
[2024-02-05] MEDS: CARAFATE SUSPENSION 1 GM PO ×4 (07:56→21:03)
[2024-02-05] MEDS: ELIQUIS 5 MG PO ×2 (07:57→20:57)
[2024-02-05] MEDS: PROTONIX 40 MG PO (07:57)
[2024-02-05] MEDS: ZITHROMAX 250 MG PO (07:57)
[2024-02-05] MEDS: LASIX 40 MG PO ×2 (07:57→20:58)
[2024-02-05] MEDS: DELTASONE 40 MG PO (07:57)
[2024-02-05] MEDS: COLACE 100 MG PO ×2 (07:57→20:57)
[2024-02-05] MEDS: VITAMIN D3 (cholecalciferol) PO (08:02)
[2024-02-05] MEDS: VITAMIN C PO (08:02)
[2024-02-05] MEDS: OCUVITE SOFTGEL PO (08:02)
[2024-02-05] MEDS: VITAMIN B-12 PO (08:02)
--- NOTE | 2024-02-05 08:36 | W.PN.HOSP.TC ---
Today's Communication/Plan
-
Continue postop care. Adjust insulin as needed. Oral steroids. Restart antihypertensive and rate control at a lower dose.
Assessment / Plan
Assessment / Plan
Gen: NAD, awake and alert
Eyes: EOMI, PERRLA, no scleral icterus.
Neck: supple.
CV: continues to remain irreg/irreg, +S1/S2, no m/r/g.
Resp: Bilateral wheezes, no crackles.
Skin: No rashes.
Musculoskeletal: Right hip surgery without hematoma or erythema.
Neuro: remains CN 2-12 intact, non-focal.
Psych: Normal mood and affect.
A/P:
Mechanical fall resulting in right femoral neck fracture:
s/p R hemiarthroplasty 01/31/24
Continue postop care
Plan to discharge to rehab as soon as bed available
Discussed with daughter at bedside
GERD:
Continue PPI
Continue sucralfate
Mild hyperkalemia:
Improved after diuretics.
Active bronchospasm with hypoxia/hypoxic respiratory insufficiency:
Improved
Suspect related to asthma
Continue taper prednisone down to 30 mg
Bronchodilators
Oxygen supplementation (on 2 L--> wean as able)
Diabetes mellitus type 2:
Mild hypoglycemia notably decreasing steroids
NovoLog can decrease to 6 units and even more
Lantus continue 15 units daily and even more as well
Steroids continue to be decreased
Hypotension with shock and hypoxemia:
Resolved-temporary transfer to ICU and back to [facility].
Acute kidney injury:
Resolved back to baseline
Hypercalcemia:
Resolved back to baseline
Paroxysmal atrial fibrillation
-cont Eliquis
-Resume Cardizem at a lower dose of Cardizem CD 120 mg daily
Chronic HFpEF:
-Resume lasix 40 mg twice daily
-Can resume Jardiance upon discharge
Essential hypertension:
-Restarted losartan and Cardizem, the latter at a lower dose.
Asthma
-Continue albuterol, budesonide
-Continue prednisone
-Continue prophylactic azithromycin
Macular degeneration
Anxiety/depression
-Continue paroxetine
Osteoporosis
-Continue risedronate
FULL/SCDs
Anticipated Discharge: 24 - 48 hours
Subjective/Interval History
-
Date of Service: February 05, 2024
Patient denies any new complaints.
Objective Data
-
Labs:
Laboratory Results
02/05/24
04:34
WBC 13.4 H
Hgb 12.1
Hct 36.7 L
Plt Count 219
Sodium 136
Potassium 4.4
Chloride 99
Carbon Dioxide 29
BUN 54 H
Creatinine 1.0
Glucose 42 L*
Calcium 9.5
Vital Signs:
Vital Signs
Temp Pulse Resp BP Pulse Ox
97.2 F 102 18 133/72 100
02/05/24 07:46 02/05/24 07:46 02/05/24 07:46 02/05/24 07:46 02/05/24 07:46
I&O
02/04/24 02/05/24 02/06/24
06:59 06:59 06:59
Intake Total 1979 720 / 720 480 / 480
Output Total 1250 / 1250
Balance 1979 -530 / -530 480 / 480
[2024-02-05] MEDS: COZAAR 100 MG PO (09:44)
[2024-02-05 09:48] LABS: Glucose - Point of Care 189 mg/dl (70-99)
[2024-02-05 11:18] LABS: Glucose - Point of Care 162 mg/dl (70-99)
[2024-02-05] MEDS: NOVOLOG FLEXPEN-LOW RESISTANCE 1 UNITS SC (12:09)
[2024-02-05 15:25] VITALS: BP 104/53
[2024-02-05 15:27] VITALS: BP 131/67; PULSE 76; O2SAT 97
[2024-02-05 15:30] VITALS: BP 100/65; PULSE 115; O2SAT 95
[2024-02-05] MEDS: CARDIZEM CD 120 MG PO (16:04)
[2024-02-05 16:16] LABS: Glucose - Point of Care 258 mg/dl (70-99)
[2024-02-05] MEDS: NOVOLOG FLEXPEN-LOW RESISTANCE 3 UNITS SC (16:27)
--- NOTE | 2024-02-05 19:55 | W.PN.ORTHO ---
Today's Communication / Plan
-
88-year-old female postop day 5 status post right hip hemiarthroplasty for femoral neck fracture
Weightbearing as tolerated right lower extremity
PT OT
DVT prophylaxis: Continue Eliquis as previously discussed
Pain control
Medical management per primary team
Plan to follow-up outpatient 2 to 3 weeks date of surgery for repeat evaluation with planned removal of florinda
Subjective
.
.:
Patient comfortable in bed this evening. She reports some swelling and some discomfort in her thigh particular with ambulation. She does note some altered sensation in the foot that she reports is improving.
Vital Signs and Labs
.
Vital Signs and Labs:
Lab Results
02/05/24 04:34
02/05/24 04:34
Temp Pulse Resp BP Pulse Ox
98.8 F 107 18 104/53 97
02/05/24 15:25 02/05/24 15:25 02/05/24 15:25 02/05/24 15:25 02/05/24 15:25
PT 16.6 Sec (11.4-14.6) H 01/31/24 14:41
INR 1.36 01/31/24 14:41
Physical Exam
-
Musculoskeletal right lower extremity
Bloody drainage on dressing
Moderate swelling thigh
Positive ankle dorsiflexion, plantarflexion
Sensation is intact to light touch although patient reports altered over dorsal aspect of foot
Distal extremity warm and pink
Leg lengths approximately equal
[2024-02-05] MEDS: PAXIL 20 MG PO (21:04)
[2024-02-05 21:10] LABS: Glucose - Point of Care 279 mg/dl (70-99)
[2024-02-05] MEDS: LANTUS 0.0599999999999999978 UNITS SC (21:12)
[2024-02-05 23:05] VITALS: BP 119/57
[2024-02-06 06:00] VITALS: BMI 26.3
[2024-02-06 07:05] LABS: Glucose - Point of Care 131 mg/dl (70-99)
--- NOTE | 2024-02-06 07:35 | PN.DE.MGMTRT ---
Insulin Management
- -
02/06/2024: Diabetes management f/u:
Patient admitted on 01/28 with Right Hip Fx s/p fall. PMH: HTN, PAF on Eliquis, HFpEF, Asthma, Macular degeneration and T2DM. She lives alone and uses a walker to ambulate at baseline. Takes Prednisone 10mg daily for Asthma and chronic bronchitis.
Glucose on admission 342, A1C 9.1%, Cr 1.0, eGFR 54.19. Was taking Jardiance 10mg daily, states it was started 2 months ago. Reports she has a working meter, has been checking her blood sugar once a day in the morning with fasting results of 100 to
117.
Pt awake, A/O x3, sitting up in chair, able to discuss diabetes management.
POD #5 S/P Right hemiarthroplasty 01/31/24.
Currently on steroid taper- pred 30mg daily. Jardiance 10mg daily was started, dc'd AC NovoLog yesterday and Lantus was reduced to 6 units @HS
FBG 131 this AM. premeal range 74 to 279 yesterday.
Will make no changes to current regimen. Cont Jardiance 10mg daily Lantus 6 units @HS and low corrective with meals
Patients daughter and son have decided SNF then transition to LTC. Patient will not need to learn self injection.
Diabetes History
- -
Type of Diabetes: 2 requiring insulin
Pre-Admission Diabetes Regimen
Lab Results
Hemoglobin A1c 9.1 % (4.0-5.6) H 01/30/24 04:24
Insulin Pump Settings
IP Diabetes Regimen
02/05/24 02/05/24 02/05/24
09:46 11:16 16:14
POC Glucose 189 H 162 H 258 H
02/05/24 02/06/24
21:08 07:04
POC Glucose 279 H 131 H
Meal type: Lunch
Meal type: Breakfast
Amount consumed: 100%
Amount consumed: 100%
Patient Education
[2024-02-06] MEDS: NOVOLOG FLEXPEN-LOW RESISTANCE SC (07:40)
[2024-02-06] MEDS: DUONEB 3 ML INH ×2 (07:44→18:46)
[2024-02-06] MEDS: PULMICORT 0.5 MG INH ×2 (07:44→18:46)
[2024-02-06 07:54] LABS: Hematocrit 34.8 % (37.0-47.0); Hemoglobin 12.2 g/dL (12.0-16.0); Mean Corp Hgb Conc. 35.1 g/dL (33.0-37.0); Mean Corpuscular Hgb 31.7 pg (27.0-31.0); Mean Corpuscular Volume 90.4 fL (81.0-99.0); Mean Platelet Volume 12.1 fL (7.4-10.4); Platelet Count 218 10^3/uL (130-400); Red Blood Cell Count 3.85 10^6/uL (4.20-5.40); Red Cell Dist. Width 14.7 % (11.5-14.5); White Blood Cell Count 10.6 10^3/uL (4.8-10.8)
[2024-02-06 08:05] VITALS: BP 107/72
[2024-02-06 08:20] LABS: Blood Urea Nitrogen 49 mg/dl (7-17); Calcium 9.5 mg/dl (8.4-10.2); Carbon Dioxide 27 mmol/L (22-30); Chloride 100 mmol/L (98-107); Estimated Creatinine Clearance 40 ml/min; Glucose 118 mg/dl (70-99); Potassium 4.6 mmol/L (3.5-5.1); Sodium 132 mmol/L (135-145); eGFR > 60.00
--- NOTE | 2024-02-06 08:22 | W.PN.HOSP.TC ---
Today's Communication/Plan
-
Postop care. Discharge planning in progress
Assessment / Plan
Assessment / Plan
Gen: NAD, awake and alert
Eyes: EOMI, PERRLA, no scleral icterus.
Neck: supple.
CV: continues to remain irreg/irreg, +S1/S2, no m/r/g.
Resp: Bilateral wheezes, no crackles.
Skin: No rashes.
Musculoskeletal: Right hip surgery without hematoma or erythema.
Neuro: remains CN 2-12 intact, non-focal.
Psych: Normal mood and affect.
A/P:
Mechanical fall resulting in right femoral neck fracture:
s/p R hemiarthroplasty 01/31/24
Continue postop care
Appreciate Ortho follow-up
Plan to discharge to rehab as soon as bed available
Discussed with daughter at bedside
GERD:
Continue PPI
Continue sucralfate
Mild hyperkalemia:
Improved after diuretics.
Active bronchospasm with hypoxia/hypoxic respiratory insufficiency:
Improved
Suspect related to asthma
Continue taper prednisone down to 30 mg--> decrease to 20 mg tomorrow
Bronchodilators
Oxygen supplementation--> down to room air today on 02/05
Diabetes mellitus type 2:
Hyperglycemia/hypoglycemia
NovoLog can decrease to 6 units and sliding scale
Stopped Lantus
Steroids decreased
Hypotension with shock and hypoxemia:
Resolved-temporary transfer to ICU and back to [facility].
Acute kidney injury:
Resolved back to baseline
Hypercalcemia:
Resolved back to baseline
Paroxysmal atrial fibrillation
-cont Eliquis
-Resume Cardizem at a lower dose of Cardizem CD 120 mg daily
Chronic HFpEF:
-Resume lasix 40 mg twice daily
-Can resume Jardiance upon discharge
Essential hypertension:
-Restarted losartan and Cardizem, the latter at a lower dose.
Asthma
-Continue albuterol, budesonide
-Continue prednisone
-Continue prophylactic azithromycin
Macular degeneration
Anxiety/depression
-Continue paroxetine
Osteoporosis
-Continue risedronate
FULL/SCDs
Anticipated Discharge: 24 - 48 hours
Subjective/Interval History
-
Date of Service: February 06, 2024
Feels better in terms of shortness of breath. Still weak and has some discomfort in the right hip postop. GERD symptoms improved with medications. Afebrile
Objective Data
-
Labs:
Laboratory Results
02/06/24
07:01
WBC 10.6
Hgb 12.2
Hct 34.8 L
Plt Count 218
Sodium 132 L
Potassium 4.6
Chloride 100
Carbon Dioxide 27
BUN 49 H
Creatinine 0.8
Glucose 118 H
Calcium 9.5
Vital Signs:
Vital Signs
Temp Pulse Resp BP Pulse Ox
98.5 F 107 18 107/72 97
02/06/24 08:05 02/06/24 08:05 02/06/24 08:05 02/06/24 08:05 02/06/24 08:05
I&O
02/05/24 02/06/24 02/07/24
06:59 06:59 06:59
Intake Total 720 / 720 1620 / 1620
Output Total 1250 / 1250
Balance -530 / -530 1620 / 1620
[2024-02-06] MEDS: CARAFATE SUSPENSION 1 GM PO ×4 (08:25→21:07)
[2024-02-06] MEDS: MUCINEX 600 MG PO ×2 (08:26→20:59)
[2024-02-06] MEDS: COLACE 100 MG PO ×2 (08:26→20:59)
[2024-02-06] MEDS: ELIQUIS 5 MG PO ×2 (08:26→20:59)
[2024-02-06] MEDS: DELTASONE 30 MG PO (08:26)
[2024-02-06] MEDS: PROTONIX 40 MG PO (08:26)
[2024-02-06] MEDS: VITAMIN C PO (08:27)
[2024-02-06] MEDS: OCUVITE SOFTGEL PO (08:27)
[2024-02-06] MEDS: VITAMIN D3 (cholecalciferol) PO (08:27)
[2024-02-06] MEDS: CARDIZEM CD 120 MG PO (08:27)
[2024-02-06] MEDS: JARDIANCE 10 MG PO (08:27)
[2024-02-06] MEDS: LASIX 40 MG PO ×2 (08:27→20:55)
[2024-02-06] MEDS: VITAMIN B-12 PO (08:27)
[2024-02-06] MEDS: COZAAR 100 MG PO (08:27)
[2024-02-06 11:42] LABS: Glucose - Point of Care 282 mg/dl (70-99)
[2024-02-06] MEDS: NOVOLOG FLEXPEN-LOW RESISTANCE 3 UNITS SC ×2 (12:24→16:48)
[2024-02-06 14:30] VITALS: BP 106/63
[2024-02-06] MEDS: ZOFRAN 4 MG IV ×2 (14:49→21:04)
[2024-02-06 14:52] LABS: Glucose - Point of Care 274 mg/dl (70-99)
[2024-02-06 15:11] VITALS: BP 125/73
[2024-02-06] MEDS: COMPAZINE 5 MG IV (16:46)
[2024-02-06 16:49] LABS: Glucose - Point of Care 269 mg/dl (70-99)
[2024-02-06 17:06] LABS: Glucose - Point of Care 314 mg/dl (70-99)
--- NOTE | 2024-02-06 17:21 | CM ---
Spoke with son Milton [phone] .Pt has [employer] insurance.
Son picked snf.
[facility] is out of network [facility] to check if she had out of network benefits.
[facility] said out of network [phone].
[facility] said no bed till at least Friday.
[facility] said no female beds.
LM with [facility] .
[facility] said no beds.
[facility] said possible bed next week .Also [facility] could have bed next week.
Will need auth .
Son aware he will provide more SNF choices.
PLAN To SNF after auth
--- NOTE | 2024-02-06 18:02 | PTCARENOTE ---
Patient's aquacell dressing to the right hip saturated twice today; Aquacell dressing changed twice; Dr. Romo aware; No further orders or interventions at this time; Assessment ongoing
[2024-02-06] MEDS: PAXIL 20 MG PO (21:07)
[2024-02-06] MEDS: LANTUS 0.0599999999999999978 UNITS SC (21:32)
[2024-02-06 21:36] LABS: Glucose - Point of Care 208 mg/dl (70-99)
[2024-02-06 23:37] VITALS: BP 115/71
[2024-02-07 05:51] VITALS: BMI 26.1
[2024-02-07 07:05] VITALS: BP 129/81
--- NOTE | 2024-02-07 07:23 | W.PN.HOSP.TC ---
Addendum entered and electronically signed by Jose Gu MD 02/07/24 13:46:
Bloody discharge from wound alerted by RN. Will obtain H&H and PTT and INR and hold Elikristinais toncathryn. Asked RN to alert orthopedic.
Original Note:
Today's Communication/Plan
-
Continue postop care. Discharge planning in progress
Assessment / Plan
Assessment / Plan
Gen: NAD, awake and alert
Eyes: EOMI, PERRLA, no scleral icterus.
Neck: supple.
CV: continues to remain irreg/irreg, +S1/S2, no m/r/g.
Resp: Bilateral wheezes, no crackles.
Skin: No rashes.
Musculoskeletal: Right hip surgery without hematoma or erythema.
Neuro: remains CN 2-12 intact, non-focal.
Psych: Normal mood and affect.
A/P:
Mechanical fall resulting in right femoral neck fracture:
s/p R hemiarthroplasty 01/31/24
Continue postop care
Appreciate Ortho follow-up
Plan to discharge to rehab as soon as bed available
Discussed with daughter at bedside prior
GERD:
Continue PPI
Continue sucralfate
stop steroids today and this will help
Consider GI eval as outpatient
Mild hyperkalemia:
Improved after diuretics.
Active bronchospasm with hypoxia/hypoxic respiratory insufficiency:
Improved
Suspect related to asthma
Finish tapering course of prednisone today on 02/06.
Bronchodilators
Oxygen supplementation--> down to room air since 02/05
On azithromycin
Diabetes mellitus type 2:
Hyperglycemia/hypoglycemia
Lantus 6 units
Insulin sliding scale
Resume Jardiance upon discharge
Off steroids now
Hemoglobin A1c 9.1
Hypotension with shock and hypoxemia:
Resolved-temporary transfer to ICU and back to [facility].
Acute kidney injury:
Resolved back to baseline
Hypercalcemia:
Resolved back to baseline
Paroxysmal atrial fibrillation
-cont Eliquis
-Resumed Cardizem at a lower dose of Cardizem CD 120 mg daily
Chronic HFpEF:
-Resume lasix 40 mg twice daily
-Can resume Jardiance upon discharge
Essential hypertension:
-Restarted losartan and Cardizem, the latter at a lower dose.
Asthma
-Continue albuterol, budesonide
-Off prednisone
-Continue prophylactic azithromycin
Macular degeneration
Anxiety/depression
-Continue paroxetine
Osteoporosis
-Continue risedronate
FULL/SCDs
Anticipated Discharge: 24 - 48 hours
Subjective/Interval History
-
Date of Service: February 07, 2024
No new complaints today. GERD symptoms although improved they fluctuate.
Objective Data
-
Vital Signs:
Vital Signs
Temp Pulse Resp BP Pulse Ox
97.4 F 93 16 115/71 97
02/06/24 23:37 02/06/24 23:37 02/06/24 23:37 02/06/24 23:37 02/06/24 23:37
I&O
02/06/24 02/07/24 02/08/24
06:59 06:59 06:59
Intake Total 1620 / 1620
Balance 1620 / 1620
[2024-02-07] MEDS: DUONEB 3 ML INH ×2 (07:56→19:13)
[2024-02-07] MEDS: PULMICORT 0.5 MG INH ×2 (07:56→19:12)
[2024-02-07 08:40] LABS: Glucose - Point of Care 137 mg/dl (70-99)
[2024-02-07] MEDS: NOVOLOG FLEXPEN-LOW RESISTANCE SC (09:04)
[2024-02-07] MEDS: PROTONIX 40 MG PO (09:05)
[2024-02-07] MEDS: COLACE 100 MG PO ×2 (09:05→20:19)
[2024-02-07] MEDS: COZAAR 100 MG PO (09:05)
[2024-02-07] MEDS: ELIQUIS 5 MG PO (09:05)
[2024-02-07] MEDS: CARAFATE SUSPENSION 1 GM PO ×4 (09:05→20:19)
[2024-02-07] MEDS: VITAMIN B-12 1000 MCG PO (09:06)
[2024-02-07] MEDS: JARDIANCE 10 MG PO (09:06)
[2024-02-07] MEDS: ZITHROMAX 250 MG PO (09:06)
[2024-02-07] MEDS: LASIX 40 MG PO ×2 (09:06→20:18)
[2024-02-07] MEDS: OCUVITE SOFTGEL 2 CAP PO (09:06)
[2024-02-07] MEDS: MUCINEX 600 MG PO (09:06)
[2024-02-07] MEDS: CARDIZEM CD 120 MG PO (09:06)
[2024-02-07] MEDS: VITAMIN C 1000 MG PO (09:07)
[2024-02-07] MEDS: DELTASONE 20 MG PO (09:07)
[2024-02-07] MEDS: VITAMIN D3 (cholecalciferol) 25 MCG PO (09:09)
[2024-02-07 12:05] LABS: Glucose - Point of Care 184 mg/dl (70-99)
[2024-02-07] MEDS: NOVOLOG FLEXPEN-LOW RESISTANCE 1 UNITS SC (12:08)
[2024-02-07 14:32] LABS: Hematocrit 38.4 % (37.0-47.0); Hemoglobin 12.7 g/dL (12.0-16.0)
[2024-02-07 15:00] VITALS: BP 101/57
[2024-02-07 15:39] LABS: APTT 33.1 Sec (23.4-35.0); INR 1.73; PT 20.1 Sec (11.4-14.6)
[2024-02-07 17:00] LABS: Glucose - Point of Care 284 mg/dl (70-99)
[2024-02-07] MEDS: NOVOLOG FLEXPEN-LOW RESISTANCE 3 UNITS SC (17:13)
[2024-02-07] MEDS: PAXIL 20 MG PO (20:19)
[2024-02-07 21:33] LABS: Glucose - Point of Care 284 mg/dl (70-99)
[2024-02-07] MEDS: LANTUS 0.0599999999999999978 UNITS SC (22:28)
[2024-02-07 23:41] VITALS: BP 112/60
[2024-02-08 06:00] VITALS: BMI 26.1
[2024-02-08] MEDS: CARAFATE SUSPENSION 1 GM PO ×4 (06:34→21:02)
[2024-02-08 07:05] VITALS: BP 119/62
[2024-02-08] MEDS: PULMICORT 0.5 MG INH ×2 (07:22→20:51)
[2024-02-08] MEDS: DUONEB 3 ML INH ×4 (07:22→20:51)
[2024-02-08 08:31] LABS: Glucose - Point of Care 148 mg/dl (70-99)
[2024-02-08] MEDS: ROBITUSSIN DM 5 ML PO (08:41)
[2024-02-08] MEDS: COZAAR 100 MG PO (08:41)
[2024-02-08] MEDS: CARDIZEM CD 120 MG PO (08:41)
[2024-02-08] MEDS: CLARITIN 10 MG PO (08:41)
[2024-02-08 08:42] LABS: Hematocrit 37.5 % (37.0-47.0); Hemoglobin 12.2 g/dL (12.0-16.0)
[2024-02-08] MEDS: PROTONIX 40 MG PO (08:42)
[2024-02-08] MEDS: NOVOLOG FLEXPEN-LOW RESISTANCE SC (08:42)
[2024-02-08] MEDS: COLACE 100 MG PO ×2 (08:42→20:56)
[2024-02-08] MEDS: JARDIANCE 10 MG PO (08:42)
[2024-02-08] MEDS: LASIX 40 MG PO ×2 (08:42→20:56)
[2024-02-08] MEDS: VITAMIN B-12 1000 MCG PO (08:42)
--- NOTE | 2024-02-08 08:55 | W.PN.HOSP.TC ---
Today's Communication/Plan
-
Hold Eliquis. Bronchodilators. Discharge planning in progress.
Assessment / Plan
Assessment / Plan
Gen: NAD, awake and alert
Eyes: EOMI, PERRLA, no scleral icterus.
Neck: supple.
CV: continues to remain irreg/irreg, +S1/S2, no m/r/g.
Resp: No wheezes, no crackles. Few scattered rhonchi.
Skin: No rashes.
Musculoskeletal: Right hip surgery mild tenderness without erythema but bloody discharge noticed.
Neuro: remains CN 2-12 intact, non-focal.
Psych: Normal mood and affect.
A/P:
Mechanical fall resulting in right femoral neck fracture:
s/p R hemiarthroplasty 01/31/24
Continue postop care
Appreciate Ortho follow-up
Mild bloody discharge postsurgical site and held Eliquis last evening and although stable still continues to have oozing from surgical site and latest hemoglobin stable, 12.2.
I was going to restart Eliquis today but orthopedic reach out to me would like to continue to place Eliquis on hold.
Discussed with daughter at bedside prior.
Plan to discharge to rehab as soon as bed available and as long as orthopedic clears her.
GERD:
Continue PPI
Continue sucralfate
off steroids
Hold nonessential vitamins
Consider GI eval as outpatient
Mild hyperkalemia:
Improved after diuretics.
Active bronchospasm with hypoxia/hypoxic respiratory insufficiency:
Improved
Suspect related to asthma
Finished tapering course of prednisone on 02/06.
Will start Acapella as well
Resume Mucinex
Continue bronchodilators
Oxygen supplementation as needed
On azithromycin
Diabetes mellitus type 2:
Hyperglycemia/hypoglycemia
Lantus 6 units
Insulin sliding scale
Resume Jardiance upon discharge
Off steroids now
Hemoglobin A1c 9.1
Hypotension with shock and hypoxemia:
Resolved-temporary transfer to ICU and back to [facility].
Acute kidney injury:
Resolved back to baseline
Hypercalcemia:
Resolved back to baseline
Paroxysmal atrial fibrillation
-cont Eliquis
-Resumed Cardizem at a lower dose of Cardizem CD 120 mg daily
Chronic HFpEF:
-Resume lasix 40 mg twice daily
-Can resume Jardiance upon discharge
Essential hypertension:
-Restarted losartan and Cardizem, the latter at a lower dose.
Asthma
-Continue albuterol, budesonide
-Off prednisone
-Continue prophylactic azithromycin
Macular degeneration
Anxiety/depression
-Continue paroxetine
Osteoporosis
-Continue risedronate
FULL/SCDs
Anticipated Discharge: 24 - 48 hours
Subjective/Interval History
-
Date of Service: February 08, 2024
Patient with dry cough, still having some blood oozing from surgical site. No chest pain. Afebrile
Objective Data
-
Labs:
Laboratory Results
02/08/24
07:42
Hgb 12.2
Hct 37.5
Vital Signs:
Vital Signs
Temp Pulse Resp BP Pulse Ox
97.2 F 64 18 119/62 94
02/08/24 07:05 02/08/24 08:42 02/08/24 07:25 02/08/24 08:42 02/08/24 07:25
[2024-02-08] MEDS: VITAMIN D3 (cholecalciferol) PO (09:01)
--- NOTE | 2024-02-08 12:13 | W.PN.ORTHO ---
Today's Communication / Plan
-
88-year-old female now postop day 8 status post right hip hemiarthroplasty for displaced right femoral neck fracture with some continued drainage from her surgical site. I did change her dressing to a more compressive style dressing hopefully this
will slow down some of the drainage. I do think this may be related to her continued Eliquis use. This was held for at least 1 dose with some reported improvement in her drainage. Will discuss further with medicine.
Weightbearing as tolerated right lower extremity
PT OT: Ambulate, posterior hip precautions
DVT prophylaxis
Pain control
Medical management per primary team
Plan follow-up outpatient 2 to 3 weeks date of surgery for repeat evaluation
Subjective
.
.:
Patient comfortable in bed. Some discomfort with physical therapy. Continues to have some drainage from right surgical incision hip
Vital Signs and Labs
.
Vital Signs and Labs:
Lab Results
02/08/24 07:42
02/06/24 07:01
Temp Pulse Resp BP Pulse Ox
97.2 F 81 18 119/62 96
02/08/24 07:05 02/08/24 11:04 02/08/24 11:04 02/08/24 08:42 02/08/24 11:04
PT 20.1 Sec (11.4-14.6) H 02/07/24 15:07
INR 1.73 02/07/24 15:07
Physical Exam
-
Musculoskeletal right lower extremity
There is significant ecchymotic staining throughout the posterior posterior lateral soft tissues of the thigh and buttock region
No erythema, there is no expressible drainage from incision but there is serosanguineous drainage noted on current dressing
There is some moderate swelling in this region that is soft and compressible
Positive EHL, FHL, ankle dorsiflexion, plantarflexion
Sensation grossly intact to light touch in all distributions distally
Distal extremity warm and pink
[2024-02-08 12:37] VITALS: BP 126/69; PULSE 105; O2SAT 98
[2024-02-08 12:58] LABS: Glucose - Point of Care 166 mg/dl (70-99)
[2024-02-08] MEDS: NOVOLOG FLEXPEN-LOW RESISTANCE 1 UNITS SC (13:36)
--- NOTE | 2024-02-08 14:18 | CM ---
[facility] has accepted patient. [facility] admissions closed today. Per front end mechanic, will be back on Friday morning. Need to confirm bed availability. Needs insurance auth.
[2024-02-08 15:05] VITALS: BP 105/54
[2024-02-08 17:25] LABS: Glucose - Point of Care 280 mg/dl (70-99)
[2024-02-08] MEDS: NOVOLOG FLEXPEN-LOW RESISTANCE 3 UNITS SC (17:28)
[2024-02-08 17:50] VITALS: BP 114/64
[2024-02-08] MEDS: MUCINEX 600 MG PO (20:56)
[2024-02-08] MEDS: PAXIL 20 MG PO (21:02)
[2024-02-08 21:06] LABS: Glucose - Point of Care 216 mg/dl (70-99)
[2024-02-08] MEDS: LANTUS 0.0599999999999999978 UNITS SC (21:08)
[2024-02-08 23:00] VITALS: BP 125/75
[2024-02-09 06:00] VITALS: BMI 25.2
[2024-02-09] MEDS: PULMICORT 0.5 MG INH ×2 (06:08→19:51)
[2024-02-09] MEDS: DUONEB 3 ML INH ×2 (06:09→19:51)
[2024-02-09 07:05] VITALS: BP 105/69
[2024-02-09 08:06] LABS: Hematocrit 36.5 % (37.0-47.0); Hemoglobin 12.4 g/dL (12.0-16.0); Mean Corpuscular Volume 94.3 fL (81.0-99.0); Mean Platelet Volume 10.7 fL (7.4-10.4); Platelet Count 295 10^3/uL (130-400); Red Blood Cell Count 3.87 10^6/uL (4.20-5.40); Red Cell Dist. Width 14.8 % (11.5-14.5); White Blood Cell Count 13.3 10^3/uL (4.8-10.8)
[2024-02-09 08:09] LABS: Glucose - Point of Care 145 mg/dl (70-99)
--- NOTE | 2024-02-09 08:12 | PN.DE.MGMTRT ---
Insulin Management
- -
02/09/2024: Diabetes management f/u:
Patient admitted on 01/28 with Right Hip Fx s/p fall. PMH: HTN, PAF on Eliquis, HFpEF, Asthma, Macular degeneration and T2DM. She lives alone and uses a walker to ambulate at baseline. Takes Prednisone 10 mg daily for Asthma and chronic bronchitis.
Glucose on admission 342, A1C 9.1%, Cr 1.0, eGFR 54.19.
Was taking Jardiance 10 mg daily, states it was started 2 months ago. Reports she has a working meter, has been checking her blood sugar once a day in the morning with fasting results of 100 to 117.
Pt awake, A/O x3, sitting up in chair, able to discuss diabetes management.
POD #9 S/P Right hemiarthroplasty 01/31/24. Weaned off steroids.
Jardiance started on 02/04, AC NovoLog dc'd on 02/04, Lantus reduced to 6 units @HS
Glucose elevated in afternoon/evening time, premeal range 148 -280 yesterday. FBG 145 this AM.
Will add Januvia 100 mg daily. Cont Jardiance 10 mg daily, Lantus 6 units @HS and low corrective with meals
Pt's daughter and son have decided SNF then transition to LTC. Patient will not need to learn self injection.
Diabetes History
- -
Type of Diabetes: 2 requiring insulin
Pre-Admission Diabetes Regimen
Lab Results
Hemoglobin A1c 9.1 % (4.0-5.6) H 01/30/24 04:24
Insulin Pump Settings
IP Diabetes Regimen
02/08/24 02/08/24 02/08/24
08:30 12:57 17:24
POC Glucose 148 H 166 H 280 H
02/08/24 02/09/24
21:04 08:07
POC Glucose 216 H 145 H
Meal type: Dinner
Meal type: Lunch
Meal type: Breakfast
Amount consumed: 90%
Amount consumed: 90%
Amount consumed: 100%
Patient Education
[2024-02-09] MEDS: ZITHROMAX 250 MG PO (08:44)
[2024-02-09] MEDS: COZAAR 100 MG PO (08:44)
[2024-02-09] MEDS: MUCINEX 600 MG PO ×2 (08:44→20:51)
[2024-02-09] MEDS: NOVOLOG FLEXPEN-LOW RESISTANCE SC ×2 (08:44→12:34)
[2024-02-09] MEDS: PROTONIX 40 MG PO (08:44)
[2024-02-09] MEDS: COLACE 100 MG PO ×2 (08:45→20:51)
[2024-02-09] MEDS: VITAMIN D3 (cholecalciferol) PO ×2 (08:45→08:52)
[2024-02-09] MEDS: JARDIANCE 10 MG PO (08:45)
[2024-02-09] MEDS: CARDIZEM CD 120 MG PO (08:45)
[2024-02-09] MEDS: LASIX 40 MG PO ×2 (08:45→20:51)
[2024-02-09] MEDS: VITAMIN B-12 PO ×2 (08:45→08:51)
[2024-02-09] MEDS: CARAFATE SUSPENSION 1 GM PO ×4 (08:47→21:03)
[2024-02-09] MEDS: JANUVIA 100 MG PO (08:58)
[2024-02-09 09:04] LABS: Blood Urea Nitrogen 37 mg/dl (7-17); Calcium 9.4 mg/dl (8.4-10.2); Carbon Dioxide 36 mmol/L (22-30); Chloride 96 mmol/L (98-107); Estimated Creatinine Clearance 40 ml/min; Glucose 117 mg/dl (70-99); Potassium 3.6 mmol/L (3.5-5.1); Sodium 136 mmol/L (135-145); eGFR > 60.00
[2024-02-09 12:26] VITALS: BP 104/66; BP 107/65; PULSE 98; O2SAT 97
[2024-02-09 12:32] VITALS: BP 104/66; BP 107/65; PULSE 100; O2SAT 98
[2024-02-09 12:33] LABS: Glucose - Point of Care 121 mg/dl (70-99)
--- NOTE | 2024-02-09 13:03 | CM ---
Addendum entered by Glenda Balbuena 02/09/24 16:24:
[facility] auth approved
Auth# [id number]
3 days 02/09-02/11 NRD
[facility] [phone] (p) [phone] (f)
Original Note:
CM reviewed chart and call to son/Milton
Bed at [facility] no longer available- beds offered to [facility], [facility], and
Son selected [facility]
Auth initiated with [facility] [phone] option 3
Clinicals faxed to [phone]
Auth pending
Update to Dr. Clay
[facility] pending auth #[id number]
Discharge Disposition- [facility] pending auth
--- NOTE | 2024-02-09 13:29 | W.PN.HOSP.TC ---
Today's Communication/Plan
-
DC
Assessment / Plan
Assessment / Plan
Mechanical fall resulting in right femoral neck fracture:
s/p R hemiarthroplasty 01/31/24
Continue postop care
Appreciate Ortho follow-up
Mild bloody discharge postsurgical site and held Eliquis and although stable still continues to have oozing from surgical site and latest hemoglobin stable,
Resume Eliquis when ok from ortho.
Plan to discharge to rehab as soon as bed available and as long as orthopedic clears her.
GERD:
Continue PPI
Continue sucralfate
off steroids
Hold nonessential vitamins
Consider GI eval as outpatient
Mild leukocytosis - suspect sec to steroids
Active bronchospasm with hypoxia/hypoxic respiratory insufficiency:
Improved
Suspect related to asthma
Finished tapering course of prednisone on 02/06.
Resume home dose of pred
Continue bronchodilators
Oxygen supplementation as needed
On azithromycin
Diabetes mellitus type 2:
Hyperglycemia/hypoglycemia
Lantus 6 units
Insulin sliding scale
Resume Jardiance upon discharge
Off steroids now
Hemoglobin A1c 9.1
Hypotension with shock and hypoxemia:
Resolved-temporary transfer to ICU and back to [facility].
Acute kidney injury:
Resolved back to baseline
Hypercalcemia:
Resolved back to baseline
Paroxysmal atrial fibrillation
-cont Eliquis when cleared by Ortho
-Resumed Cardizem at a lower dose of Cardizem CD 120 mg daily
Chronic HFpEF:
-Resume lasix 40 mg twice daily
-Can resume Jardiance upon discharge
Essential hypertension:
-Restarted losartan and Cardizem, the latter at a lower dose.
Asthma
-Continue albuterol, budesonide
-Off prednisone
-Continue prophylactic azithromycin
Macular degeneration
Anxiety/depression
-Continue paroxetine
Osteoporosis
-Continue risedronate
FULL/SCDs
DC to rehab when bed availalbe
Anticipated Discharge: Today
Subjective/Interval History
-
Date of Service: February 09, 2024
She is longstanding history of GERD and stomach reflux. Wants to hold her on vitamin tablets as extremity tablets in the hospital.
No nausea.
No abdominal pain.
Pain from the right surgical site is okay.
No fever or chills.
Objective Data
-
Labs:
Laboratory Results
02/09/24
07:31
WBC 13.3 H
Hgb 12.4
Hct 36.5 L
Plt Count 295 D
Sodium 136
Potassium 3.6
Chloride 96 L
Carbon Dioxide 36 H
BUN 37 H
Creatinine 0.8
Glucose 117 H
Calcium 9.4
Vital Signs:
Vital Signs
Temp Pulse Resp BP Pulse Ox
98.2 F 101 18 105/69 96
02/09/24 07:05 02/09/24 07:05 02/09/24 07:05 02/09/24 07:05 02/09/24 08:42
I&O
02/08/24 02/09/24 02/10/24
06:59 06:59 06:59
Intake Total 1080 / 1080
Balance 1080 / 1080
Review of Systems
-
Respiratory: Denies Trouble Breathing
Cardiac: Denies Chest Pain or Palpitations
Abdomen/GI: Denies Abdominal Pain
Neuro: Denies Dizzy
Physical Exam
-
General: No Apparent Distress
HEENT: Moist Mucous Membranes
Respiratory: Wheezes (occasional -pt with chronic bronchitis and uses nebs at home) and Non Labored Respirations; Negative Accessory Resp Muscle Use
Cardiac: Regular Rhythm and S1/S2
GI: Soft
Neuro: AO x 3
Psych: Calm
Data Reviewed
-
Labs: Labs Reviewed by me
[2024-02-09 15:05] VITALS: BP 91/57
[2024-02-09] MEDS: NOVOLOG FLEXPEN-LOW RESISTANCE 1 UNITS SC (17:19)
[2024-02-09 17:21] LABS: Glucose - Point of Care 169 mg/dl (70-99)
[2024-02-09] MEDS: PAXIL 20 MG PO (21:03)
[2024-02-09] MEDS: LANTUS 0.0599999999999999978 UNITS SC (21:03)
[2024-02-09 21:04] LABS: Glucose - Point of Care 201 mg/dl (70-99)
[2024-02-09 23:01] VITALS: BP 116/60
[2024-02-10 00:06] VITALS: BMI 25.9
[2024-02-10 06:00] VITALS: BMI 25.9
[2024-02-10 07:05] VITALS: BP 104/63
--- NOTE | 2024-02-10 07:08 | W.PN.ORTHO ---
Today's Communication / Plan
-
88 yo F POD 10 s/p R hip hemiarthroplasty
WBAT RLE
PT/OT posterior hip precautions
pain control
DVT ppx: SCDs, on baseline eliquis being held for surgical wound drainage
medical management per primary team
Plan: follow up outpatient in 1-2 weeks for removal of florinda
OK with discharge from orthopedic perspective, would hold eliquis 1-2 more days and continue with compressive dressing then resume eliquis, continue with SCD/foot pumps in the interim
Subjective
.
.:
Patient resting comfortably in bed. No complaints of pain hip.
Vital Signs and Labs
.
Vital Signs and Labs:
Lab Results
02/09/24 07:31
02/09/24 07:31
Temp Pulse Resp BP Pulse Ox
97.7 F 106 22 116/60 94
02/09/24 23:01 02/09/24 23:01 02/09/24 23:01 02/09/24 23:01 02/09/24 23:01
PT 20.1 Sec (11.4-14.6) H 02/07/24 15:07
INR 1.73 02/07/24 15:07
Physical Exam
-
MSK RLE
Incision with florinda in place, no active drainage, mild serosanginous drainage on dressing
+ehl/fhl, ankle df/pf
leg lengths equal, no rotational deformity noted
BCR
[2024-02-10] MEDS: PULMICORT 0.5 MG INH (07:23)
[2024-02-10] MEDS: DUONEB 3 ML INH ×2 (07:23→15:27)
[2024-02-10 07:57] LABS: Glucose - Point of Care 167 mg/dl (70-99)
[2024-02-10] MEDS: PROTONIX 40 MG PO (08:34)
[2024-02-10] MEDS: MUCINEX 600 MG PO (08:34)
[2024-02-10] MEDS: COLACE 100 MG PO (08:34)
[2024-02-10] MEDS: LASIX 40 MG PO (08:34)
[2024-02-10] MEDS: CARDIZEM CD 120 MG PO (08:34)
[2024-02-10] MEDS: COZAAR 100 MG PO (08:34)
[2024-02-10] MEDS: NOVOLOG FLEXPEN-LOW RESISTANCE 1 UNITS SC ×2 (08:35→12:28)
[2024-02-10] MEDS: CARAFATE SUSPENSION 1 GM PO ×2 (08:37→11:53)
[2024-02-10] MEDS: JANUVIA 100 MG PO (08:38)
[2024-02-10] MEDS: JARDIANCE 10 MG PO (08:42)
[2024-02-10] MEDS: VITAMIN B-12 PO (09:39)
[2024-02-10] MEDS: VITAMIN D3 (cholecalciferol) PO (09:40)
--- NOTE | 2024-02-10 10:55 | W.PN.HOSP.TC ---
Today's Communication/Plan
-
DC
Assessment / Plan
Assessment / Plan
Mechanical fall resulting in right femoral neck fracture:
s/p R hemiarthroplasty 01/31/24
Continue postop care
Appreciate Ortho follow-up
Mild bloody discharge postsurgical site and held Eliquis. CW dressings per Ortho -changed today
Hold Eliquis for 1-2 days per ortho - in mean time seq teds for DVT prophylaxis
Cleared for discharge from orthopedic standpoint
GERD:
Continue PPI
Continue sucralfate
off steroids
Hold nonessential vitamins
Mild leukocytosis - suspect sec to steroids
Active bronchospasm with hypoxia/hypoxic respiratory insufficiency:
Improved
Suspect related to asthma
Finished tapering course of prednisone on 02/06.
Resume home dose of pred
Continue bronchodilators
Not on oxygen.
On azithromycin
Continue with mucolytics and add Acapella
Diabetes mellitus type 2:
Hyperglycemia/hypoglycemia
Lantus 6 units
Insulin sliding scale
Resume Jardiance upon discharge
Off steroids now
Hemoglobin A1c 9.1
Hypotension with shock and hypoxemia:
Resolved-temporary transfer to ICU and back to [facility].
Acute kidney injury:
Resolved back to baseline
Hypercalcemia:
Resolved back to baseline
Paroxysmal atrial fibrillation
-cont Eliquis when cleared by Ortho
-Resumed Cardizem at a lower dose of Cardizem CD 120 mg daily
Chronic HFpEF:
-Resume lasix 40 mg twice daily
-Can resume Jardiance upon discharge
Essential hypertension:
-Restarted losartan and Cardizem, the latter at a lower dose.
Asthma
-Continue albuterol, budesonide
-Off prednisone
-Continue prophylactic azithromycin
Macular degeneration
Anxiety/depression
-Continue paroxetine
Osteoporosis
-Continue risedronate
FULL/SCDs
DC to rehab today
Discussed with daughter at bedside regarding discharge plan
Total time of discharge 35 minutes
Anticipated Discharge: Today
Subjective/Interval History
-
Date of Service: February 10, 2024
Pain from the right hip repair site is okay.
She has chronic bronchitis with cough. She feels it is little difficult to get phlegm out. Denies shortness of breath at rest. No chest pain. No fevers.
Objective Data
-
Vital Signs:
Vital Signs
Temp Pulse Resp BP Pulse Ox
97.5 F 78 16 104/63 96
02/10/24 07:05 02/10/24 07:38 02/10/24 07:38 02/10/24 07:05 02/10/24 07:38
I&O
02/09/24 02/10/24 02/11/24
06:59 06:59 06:59
Intake Total 1080 / 1080 1080 / 1080
Balance 1080 / 1080 1080 / 1080
Review of Systems
-
Constitutional: Denies Fever
Cardiac: Denies Chest Pain
Abdomen/GI: Denies Abdominal Pain, Nausea or Vomiting
Neuro: Denies Dizzy
Physical Exam
-
General: No Apparent Distress
HEENT: Moist Mucous Membranes
Respiratory: Non Labored Respirations; Negative Wheezes (today) or Accessory Resp Muscle Use
Cardiac: Regular Rhythm and S1/S2
GI: Soft
Neuro: AO x 3
Psych: Calm; Negative Confused
--- NOTE | 2024-02-10 11:10 | W.DS.TRANS ---
DC Summary - [employer]
-
Discharge Instructions:
Sleep Apnea Risk Low
Discharge Diagnosis/Procedures Mechanical fall resulting in right femoral neck
fracture:
s/p R hemiarthroplasty 01/31/24
Diet Diabetic, Carb Controlled
Activity As tolerated
Driving Restrictions No driving
Other Services PT,OT
Instructions:
Stand-Alone Forms:
Changes to Home Medications: Yes
Discharge Medications:
DC Medications w/original date entered in [employer]
fexofenadine 180 mg tablet 180 mg PO DAILY PRN allergies ##0 06/15/13
fluticasone propionate 50 mcg/actuation nasal spray,suspension 1 spray intranasal BID Allergies 06/15/13
apixaban 5 mg tablet (Eliquis) 5 mg PO BID ##60 06/22/13
biotin 2,500 mcg capsule (Hard Nails) 2,500 mcg PO DAILY Supplement 08/17/13
paroxetine HCl 20 mg tablet 20 mg PO DAILY Depression 08/17/13
vitamins A,C,Q-cwps-niuzzd 4,296 mcg-226 mg-90 mg capsule (PreserVision AREDS) 2 cap PO DAILY Supplement 08/17/13
albuterol sulfate 90 mcg/actuation aerosol inhaler 2 puff inhalation R Q6HPRN PRN sob/wheezing 01/29/24
ascorbic acid (vitamin C) 500 mg tablet (Vitamin C) 1,000 mg PO DAILY Supplement 01/29/24
azithromycin 250 mg tablet 250 mg PO Q48H Infection 01/29/24
budesonide 0.5 mg/2 mL suspension for nebulization 0.5 mg inhalation R Q6HPRN PRN sob/wheezing 01/29/24
cholecalciferol (vitamin D3) 25 mcg (1,000 unit) tablet (Vitamin D3) 25 mcg PO DAILY Supplement 01/29/24
cyanocobalamin (vitamin B-12) 1,000 mcg tablet (Vitamin B-12) 1,000 mcg PO DAILY Supplement 01/29/24
empagliflozin 10 mg tablet (Jardiance) 10 mg PO DAILY Diabetes 01/29/24
furosemide 40 mg tablet 40 mg PO BID Fluid Retention/Swelling 01/29/24
ipratropium 0.5 mg-albuterol 3 mg (2.5 mg base)/3 mL nebulization soln 3 ml inhalation R Q4HPRN PRN sob/wheezing 01/29/24
losartan 100 mg tablet 100 mg PO DAILY Blood Pressure 01/29/24
prednisone 10 mg tablet 10 mg PO DAILY Anti-Inflammatory 01/29/24
blood-glucose meter,continuous (Dexcom G7 Director Of Institutional Research) #1 ea 02/03/24
blood-glucose sensor (Dexcom G7 Sensor device) #3 ea 02/03/24
docusate sodium 100 mg capsule 100 mg PO BID 14 days #28 caps 02/03/24
pantoprazole 40 mg tablet,delayed release 40 mg PO DAILY 30 days #30 tabs 02/03/24
sucralfate 100 mg/mL oral suspension 1 g (10 mL) PO ACHS 30 days #1,200 mL 02/04/24
Insulin Glargine Lantus [Lantus] 6 units As Directed mls/hr SC HS 02/07/24
acetaminophen 325 mg tablet 650 mg (2 x 325 mg) PO Q4HPRN PRN COTA/temp> 100.4F #1 tab 02/10/24
dextromethorphan-guaifenesin 10 mg-100 mg/5 mL oral syrup 5 ml PO Q4HPRN PRN cough #237 mL 02/10/24
diltiazem HCl 120 mg capsule,extended release 24 hr 120 mg PO DAILY #1 cap 02/10/24
guaifenesin 600 mg tablet, extended release 12 hr 600 mg PO Q12 #1 tab 02/10/24
sitagliptin phosphate 100 mg tablet (Januvia) 100 mg PO DAILY #1 tab 02/10/24
Home Medication Changes
New Medication-Sitagliptin, Lantus, Mucinex
Change in medication-decrease dose of Cardizem from 2 40-1 20
Pending Results: No
[2024-02-10 11:25] VITALS: BP 93/54
[2024-02-10 11:58] LABS: Glucose - Point of Care 176 mg/dl (70-99)
--- NOTE | 2024-02-10 12:14 | CM ---
Addendum entered by DANYELLE Reynolds 02/10/24 12:31:
[facility]
report [phone]
fax [phone]
Original Note:
met with patient and dgtr to review IMM and approval for SNF. Dgtr still hopes to eventually get patient to [facility].
Left IMM in room for son to sign when he comes in
Medical necessity done and transport form.
Ambulance picker/puller [phone] today.
Called [facility] liaison and gave auth
[facility] auth approved
Auth# [id number]
3 days 02/09-02/11 NRD
[facility] [phone] (p) [phone] (f)
[2024-02-10 15:17] VITALS: BP 101/59
== END 2024-02-10 17:00 | DRG 521 ==
LOC: 2 SOUTH 18:54
PROVIDERS: Hospitalist; Internal Medicine; ADMITTING PHYSICIAN Hospitalist; ATTENDING PHYSICIAN Internal Medicine; CONSULT PHYSICIAN Internal Medicine Critical Care Medicine; CONSULT PHYSICIAN Orthopaedic Surgery; EMERGENCY PHYSICIAN Emergency Medicine; FAMILY PHYSICIAN Internal Medicine
PROC: 0SRR0J9 Replacement of Right Hip Joint, Femoral Surface with Synthetic Substitute, Cemented, Open Approach (ICD-10-PCS; 2024-01-31)
DX: S72.011A Unspecified intracapsular fracture of right femur, initial encounter for closed fracture (principal); J95.821 Acute postprocedural respiratory failure; N17.8 Other acute kidney failure; I50.32 Chronic diastolic (congestive) heart failure; T81.10XA Postprocedural shock unspecified, initial encounter; I11.0 Hypertensive heart disease with heart failure; E11.65 Type 2 diabetes mellitus with hyperglycemia; F32.A Depression, unspecified; J45.909 Unspecified asthma, uncomplicated; W01.0XXA Fall on same level from slipping, tripping and stumbling without subsequent striking against object, initial encounter; T38.0X5A Adverse effect of glucocorticoids and synthetic analogues, initial encounter; T50.2X5A Adverse effect of carbonic-anhydrase inhibitors, benzothiadiazides and other diuretics, initial encounter; M81.0 Age-related osteoporosis without current pathological fracture; E83.52 Hypercalcemia; F41.9 Anxiety disorder, unspecified; H35.30 Unspecified macular degeneration; I48.0 Paroxysmal atrial fibrillation; M19.90 Unspecified osteoarthritis, unspecified site; E87.5 Hyperkalemia; Z79.52 Long term (current) use of systemic steroids; Z79.84 Long term (current) use of oral hypoglycemic drugs; Z79.899 Other long term (current) drug therapy; Z99.89 Dependence on other enabling machines and devices; Z87.09 Personal history of other diseases of the respiratory system; Z87.891 Personal history of nicotine dependence; Z88.2 Allergy status to sulfonamides; Z88.5 Allergy status to narcotic agent
CPT/HCPCS: 36600; 71045; 71046; 73502; 80048; 80053; 81003; 82306; 82805; 82962; 83036; 83735; 83880; 83970; 84145; 85014; 85018; 85025; 85027; 85610; 85730; 86850; 86900; 86901; 93005; 93306; 94640; 96361; 96374; 96375; 97110; 97116; 97162; 97166; 97530; 97535; 99285; C1713; C1776

== ENCOUNTER → 2024-03-01 12:44 | Outpatient (REF) | payer OTHER, MEDICARE, SELFPAY ==
[2024-03-01 13:16] LABS: % Basophils 0.6 % (0-2); % Eosinophils 1.2 % (0-6); % Immature Granulocytes 1.9 % (0-0.5); % Lymphocytes 24.5 % (20.5-51.1); % Monocytes 8.6 % (1.7-9.3); % Neutrophils 63.2 % (42.2-75.2); Absolute Eosinophils 0.1 10^3/uL (0-0.7); Absolute Immature Granulocytes 0.1 10^3/uL (0-0.05); Absolute Lymphocytes 1.7 10^3/uL (1.2-3.4); Absolute Monocytes 0.6 10^3/uL (0.1-0.6); Absolute Neutrophils 4.3 10^3/uL (1.4-6.5); Hematocrit 38.2 % (37.0-47.0); Hemoglobin 12.2 g/dL (12.0-16.0); Mean Corp Hgb Conc. 31.9 g/dL (33.0-37.0); Mean Corpuscular Volume 97.2 fL (81.0-99.0); Mean Platelet Volume 11.2 fL (7.4-10.4); Nucleated Red Blood Cells % 0 %; Platelet Count 203 10^3/uL (130-400); Red Blood Cell Count 3.93 10^6/uL (4.20-5.40); Red Cell Dist. Width 14.5 % (11.5-14.5); White Blood Cell Count 6.9 10^3/uL (4.8-10.8)
[2024-03-01 13:26] LABS: ALT (SGPT) 20 U/L (0-35); AST (SGOT) 27 U/L (14-36); Albumin 3.2 g/dl (3.5-5.0); Alkaline Phosphatase 112 U/L (38-126); Blood Urea Nitrogen 18 mg/dl (7-17); Calcium 9.8 mg/dl (8.4-10.2); Carbon Dioxide 33 mmol/L (22-30); Chloride 102 mmol/L (98-107); Glucose 84 mg/dl (70-99); Potassium 4.5 mmol/L (3.5-5.1); Sodium 139 mmol/L (135-145); Total Bilirubin 0.9 mg/dl (0.2-1.3); Total Protein 5.3 g/dl (6.3-8.2); eGFR > 60.00
== END ==
LOC: OLABWHC 12:44
PROVIDERS: ATTENDING PHYSICIAN Internal Medicine
DX: D84.821 Immunodeficiency due to drugs (principal); S72.001D Fracture of unspecified part of neck of right femur, subsequent encounter for closed fracture with routine healing; E87.6 Hypokalemia; I11.0 Hypertensive heart disease with heart failure
CPT/HCPCS: 36415; 80053; 85025

== ENCOUNTER → 2024-06-14 10:12 | Outpatient (REF) | payer MEDICARE, SELFPAY ==
[2024-06-14 11:29] LABS: Blood Urea Nitrogen 34 mg/dl (7-17); Calcium 9.8 mg/dl (8.4-10.2); Carbon Dioxide 29 mmol/L (22-30); Chloride 102 mmol/L (98-107); Glucose 142 mg/dl (70-99); Potassium 4.2 mmol/L (3.5-5.1); Sodium 142 mmol/L (135-145); eGFR 48.03
[2024-06-14 12:04] LABS: Glycohemoglobin (HgbA1c) 6.8 % (4.0-5.6)
== END ==
LOC: OLABWPC 10:12
PROVIDERS: ATTENDING PHYSICIAN Nurse Practitioner Family
DX: I10 Essential (primary) hypertension (principal)
CPT/HCPCS: 36415; 80048; 83036

== ENCOUNTER 2024-06-29 13:12 | Emergency (ER) | payer MEDICARE, SELFPAY ==
[2024-06-29 13:14] VITALS: BP 142/77; BMI 28.6
[2024-06-29] MEDS: DUONEB 3 ML INH (13:25)
[2024-06-29] MEDS: SOLU-MEDROL PF 60 MG IV (13:25)
[2024-06-29 13:59] LABS: % Basophils 0.1 % (0-2); % Eosinophils 0.2 % (0-6); % Immature Granulocytes 0.9 % (0-0.5); % Lymphocytes 5.1 % (20.5-51.1); % Monocytes 4.2 % (1.7-9.3); % Neutrophils 89.5 % (42.2-75.2); Absolute Immature Granulocytes 0.1 10^3/uL (0-0.05); Absolute Lymphocytes 0.5 10^3/uL (1.2-3.4); Absolute Monocytes 0.4 10^3/uL (0.1-0.6); Absolute Neutrophils 8.3 10^3/uL (1.4-6.5); Hemoglobin 11.6 g/dL (12.0-16.0); Mean Corp Hgb Conc. 31.4 g/dL (33.0-37.0); Mean Corpuscular Hgb 25.5 pg (27.0-31.0); Mean Corpuscular Volume 81.3 fL (81.0-99.0); Mean Platelet Volume 11.5 fL (7.4-10.4); Nucleated Red Blood Cells % 0 %; Platelet Count 171 10^3/uL (130-400); Red Blood Cell Count 4.55 10^6/uL (4.20-5.40); Red Cell Dist. Width 16.4 % (11.5-14.5); White Blood Cell Count 9.2 10^3/uL (4.8-10.8)
[2024-06-29 14:13] LABS: ALT (SGPT) 23 U/L (0-35); AST (SGOT) 30 U/L (14-36); Albumin 4.4 g/dl (3.5-5.0); Alkaline Phosphatase 112 U/L (38-126); Blood Urea Nitrogen 34 mg/dl (7-17); Calcium 9.9 mg/dl (8.4-10.2); Carbon Dioxide 29 mmol/L (22-30); Chloride 99 mmol/L (98-107); Estimated Creatinine Clearance 41 ml/min; Glucose 147 mg/dl (70-99); Potassium 4.3 mmol/L (3.5-5.1); Sodium 142 mmol/L (135-145); Total Bilirubin 1.2 mg/dl (0.2-1.3); Total Protein 6.9 g/dl (6.3-8.2); eGFR > 60.00
[2024-06-29 14:22] LABS: NT-proBNP 2370 pg/ml; Troponin I < 0.012 ng/ml
--- NOTE | 2024-06-29 14:59 | ED.GENMED ---
History of Present Illness
General
Chief Complaint: Breathing Problem
Time Seen by Provider: 06/29/24 13:13
History of Present Illness
History of Present Illness:
9-year-old female with history of CHF and asthma presents to the emergency department for evaluation of shortness of breath for the past 3 to 4 days. She has scheduled DuoNebs as well as rescue albuterol inhalers at her facility but feels this is
not helping. She states her facility physician would not treat her with prednisone out of abundance of concern for causing healing disruption to her right hip surgery that was done in November of this past year. She denies any fevers or chills.
Cough is dry and nonproductive. Denies any leg swelling.
Past History
Past History
ED Past Medical History: Arrthythmia, Asthma, HTN, Other (OA) and Other (Asthma, macular degeneration, atrial fibrillation, osteoarthritis)
ED Past Surgical History: Other (Noncontributory)
Social History
Tobacco: Former smoker
Alcohol: None
Drug: None
Personal: Other (Noncontributory)
Living: with family
Employment: Not employed
Family History
Family History: Other (Noncontributory)
Review of Systems
Review of Systems
Allergies reviewed?: Yes
All Other Systems: ROS reviewed and negative except as documented in HPI and ROS
Phy Exam
Physical Exam
Physical Exam:
GEN: Well appearing, NAD, WDWN
Eyes: PERRLA, EOMs intact, no scleral icterus
HENT: NCAT, oral mucosa moist, no JVD
Lungs: Slightly tachypneic, coarse expiratory wheezes heard throughout all lung hamm, no crackles
Cardiac: RRR, no M/R/G, no peripheral edema. Radial pulses 2+ bilat
Neuro: AO x 3
MSK: No gross deformity or ecchymosis. No edema. No digital clubbing
Skin: No rashes, petechiae. Normal color, no pallor or jaundice.
Psych: Calm, cooperative, proper hygiene
Scores
Heart Failure Risk
Heart Failure Risk Score: Not Applicable
Course
Orders/Labs/Results
Orders:
Orders
06/29/24 13:13
Electrocardiogram (*1) Urgent
Reason for Study: Other
Other Reason for Exam: Respiratory Distress
EKG- Treatment ONCE
IV Insert/Care/Rem.- Treatment PRN
CR Chest - 2 Views Urgent
Comment:
Reason For Exam: respiratory distress
06/29/24 13:20
Ipratropium/Albuterol Sulfate [Duoneb] 3 ml INH R NOW ONE
MethylPREDNISolone PF [Solu-Medrol Pf] 60 mg IV NOW STA
06/29/24 13:27
Complete Blood Count/With Diff Urgent
Comprehensive Metabolic Panel Urgent
NT-proBNP Urgent
Troponin I Urgent
Abnormal Lab Results
06/29/24
13:27
Hgb 11.6 L g/dL
(12.0-16.0)
MCH 25.5 L pg
(27.0-31.0)
MCHC 31.4 L g/dL
(33.0-37.0)
RDW 16.4 H %
(11.5-14.5)
MPV 11.5 H fL
(7.4-10.4)
Abs Immat Gran (auto) 0.1 H 10^3/uL
(0-0.05)
Absolute Neuts (auto) 8.3 H 10^3/uL
(1.4-6.5)
Absolute Lymphs (auto) 0.5 L 10^3/uL
(1.2-3.4)
Immature Gran % 0.9 H %
(0-0.5)
Neutrophils % 89.5 H %
(42.2-75.2)
Lymphocytes % 5.1 L %
(20.5-51.1)
BUN 34 H mg/dl
(7-17)
Glucose 147 H mg/dl
(70-99)
06/29/24 13:27
06/29/24 13:27
Vital Signs
Initial and Last Documented VS:
Initial Vital Signs
Temp Pulse Resp BP Pulse Ox
98.3 F 87 26 142/77 98
06/29/24 13:14 06/29/24 13:14 06/29/24 13:14 06/29/24 13:14 06/29/24 13:14
Last Documented Vital Signs
Temp Pulse Resp BP Pulse Ox
98.3 F 86 26 142/77 93
06/29/24 13:14 06/29/24 14:15 06/29/24 14:15 06/29/24 13:14 06/29/24 14:15
MDM/Problems Addressed
MDM/Problems Addressed:
Clinical presentation is most consistent with acute asthma exacerbation. She has no fever or leukocytosis no evidence of infiltrates on chest x-ray. She does have cardiomegaly on x-ray or proBNP is decreased compared to prior and she has no
evidence of hypervolemia. Will treat with corticosteroids and continue neb treatments. She was ambulated prior to discharge and respiratory effort was adequate with no increased work of breathing and no hypoxia. She is suitable for discharge to
nursing facility.
*Critical Care Note
Total Time (30-74mins, 75-104mins- exclusive of procedures): Not Applicable
ED Attending Note
-
Portions of this chart may have been created with voice recognition software.� Occasional wrong word or��sound alike� substitutions may have occurred due to the inherent limitations of voice recognition software.
Discharge Plan
Departure
Patient Disposition: Home (Routine Discharge)
Date of Disposition: 06/29/24
Time of Disposition: 15:01
Patient with high blood pressure during this ER visit?: No
Discharge Problem:
Acute asthma exacerbation
Instructions: Asthma, Adult (DC)
Prescriptions:
New
prednisone 10 mg tablet
40 mg PO DAILY 5 Days Qty: 20 0RF
No Action
fexofenadine 180 mg Tablet
180 mg PO DAILY PRN (Reason: allergies) Qty: 0
Patient Comments:
180MG
fluticasone propionate 1 SPRAY spray,suspension
1 spray intranasal BID
Patient Comments:
stop for 2 weeks-too dry
Eliquis 5 MG tablet
5 mg PO BID Qty: 60 0RF
paroxetine HCl 20 MG tablet
20 mg PO DAILY
PreserVision AREDS 1 CAP capsule
2 cap PO DAILY
biotin [Hard Nails] 2,500 MCG capsule
2,500 mcg PO DAILY
furosemide 40 mg tablet
40 mg PO BID
prednisone 10 mg tablet
10 mg PO DAILY
ipratropium-albuterol 0.5 mg-3 mg(2.5 mg base)/3 mL solution for nebulization
3 ml INHALATION R Q4HPRN PRN (Reason: sob/wheezing)
azithromycin 250 mg tablet
250 mg PO Q48H
cyanocobalamin (vitamin B-12) [Vitamin B-12] 1,000 mcg Tablet
1,000 mcg PO DAILY
ascorbic acid (vitamin C) [Vitamin C] 500 mg Tablet
1,000 mg PO DAILY
budesonide 0.5 mg/2 mL suspension for nebulization
0.5 mg inhalation R Q6HPRN PRN (Reason: sob/wheezing)
albuterol sulfate 90 mcg/actuation HFA aerosol inhaler
2 puff INHALATION R Q6HPRN PRN (Reason: sob/wheezing)
losartan 100 mg tablet
100 mg PO DAILY
cholecalciferol (vitamin D3) [Vitamin D3] 25 mcg (1,000 unit) Tablet
25 mcg PO DAILY
Jardiance 10 mg tablet
10 mg PO DAILY
docusate sodium 100 mg Capsule
100 mg PO BID 14 Days Qty: 28 0RF
(DME) Dexcom G7 Sensor Device
Qty: 3 0RF
Rx Instructions:
Change device every 10 days, As Directed
New to insulin
E11.65
(DME) Dexcom G7 Senior Planning Analyst Misc
Qty: 1 0RF
Rx Instructions:
Use to obtain glucose readings
New to insulin A1C 9.1
E11.65
pantoprazole 40 mg Tablet,Delayed Release (Dr/Ec)
40 mg PO DAILY 30 Days Qty: 30 0RF
sucralfate 100 mg/mL Suspension
1 g PO ACHS 30 Days Qty: 1200 0RF
Insulin Glargine Lantus [Lantus] 6 UNITS
Subcutaneous Insulin Syringe [Syringe-Insulin] 0 UNIT
As Directed mls/hr SC HS
Ordered By: Jose Gu MD
Last Taken: Unknown
diltiazem HCl 120 mg Capsule,Extended Release 24hr
120 mg PO DAILY Qty: 1 0RF
Rx Instructions:
Dose decreased 240 mg 120 mg
dextromethorphan-guaifenesin 10-100 mg/5 mL Syrup
5 ml PO Q4HPRN PRN (Reason: cough) Qty: 237 0RF
acetaminophen 325 mg Tablet
650 mg PO Q4HPRN PRN (Reason: COTA/temp> 100.4F) Qty: 1 0RF
guaifenesin 600 mg Tablet Extended Release 12hr
600 mg PO Q12 Qty: 1 0RF
Januvia 100 mg Tablet
100 mg PO DAILY Qty: 1 0RF
Referrals:
UNKNOWN,NO INTERVIEW [Family Provider] -
Interventions
Interventions:
*Risk Screen - Suicide Last Done: 06/29/24 13:14
*General Assessment Last Done: 06/29/24 13:14
*Neglect/Abuse Screening Last Done: 06/29/24 13:14
ED- Fall Risk Assessment Last Done: 06/29/24 13:14
*ED COVID-19 Vaccine History Last Done: 06/29/24 13:14
ED- Cardiac Assessment Last Done: 06/29/24 13:14
ED- Pulmonary Assessment Last Done: 06/29/24 13:14
Discharge Date and Time
Print Language: PAKISTANI
== END 2024-06-29 15:19 | disposition home or self-care (01) ==
LOC: EMR 13:12
PROVIDERS: EMERGENCY PHYSICIAN Emergency Medicine
DX: J45.901 Unspecified asthma with (acute) exacerbation (principal); I50.9 Heart failure, unspecified; Z87.891 Personal history of nicotine dependence
CPT/HCPCS: 99285; 96374; 94640; 71046; 80053; 83880; 84484; 85025; 93005

== ENCOUNTER → 2024-09-15 12:42 | Outpatient (REF) | payer MEDICARE, SELFPAY | LOC: HWRAD 12:42 | PROVIDERS: ATTENDING PHYSICIAN Internal Medicine Critical Care Medicine | DX: J45.991 Cough variant asthma (principal); J98.4 Other disorders of lung | CPT/HCPCS: 71250 ==

== ENCOUNTER 2024-09-27 16:38 | Emergency (ER) | payer MEDICARE, SELFPAY ==
[2024-09-27 16:46] VITALS: BP 154/62; BMI 28.4
[2024-09-27 17:07] LABS: % Immature Granulocytes 0.5 % (0-0.5); % Lymphocytes 3.1 % (20.5-51.1); % Monocytes 3.7 % (1.7-9.3); % Neutrophils 92.7 % (42.2-75.2); Absolute Lymphocytes 0.2 10^3/uL (1.2-3.4); Absolute Monocytes 0.3 10^3/uL (0.1-0.6); Absolute Neutrophils 6.8 10^3/uL (1.4-6.5); Hematocrit 35.2 % (37.0-47.0); Hemoglobin 11.3 g/dL (12.0-16.0); Mean Corp Hgb Conc. 32.1 g/dL (33.0-37.0); Mean Corpuscular Hgb 25.9 pg (27.0-31.0); Mean Corpuscular Volume 80.5 fL (81.0-99.0); Mean Platelet Volume 11.7 fL (7.4-10.4); Nucleated Red Blood Cells % 0 %; Platelet Count 205 10^3/uL (130-400); Red Blood Cell Count 4.37 10^6/uL (4.20-5.40); Red Cell Dist. Width 15.8 % (11.5-14.5); White Blood Cell Count 7.3 10^3/uL (4.8-10.8)
[2024-09-27 17:22] LABS: ALT (SGPT) 16 U/L (0-35); AST (SGOT) 29 U/L (14-36); Alkaline Phosphatase 103 U/L (38-126); Blood Urea Nitrogen 26 mg/dl (7-17); Calcium 9.6 mg/dl (8.4-10.2); Carbon Dioxide 28 mmol/L (22-30); Chloride 101 mmol/L (98-107); Estimated Creatinine Clearance 52 ml/min; Glucose 140 mg/dl (70-99); Potassium 4.5 mmol/L (3.5-5.1); Sodium 135 mmol/L (135-145); Total Bilirubin 1.6 mg/dl (0.2-1.3); Total Protein 6.6 g/dl (6.3-8.2); eGFR > 60.00
[2024-09-27 17:32] LABS: NT-proBNP 3270 pg/ml; Troponin I 0.014 ng/ml
[2024-09-27 17:35] LABS: COVID-19 Antigen Negative (Negative)
[2024-09-27] MEDS: NSS 250 IV (18:11)
[2024-09-27] MEDS: DUONEB 3 ML INH (18:11)
[2024-09-27 18:51] LABS: Lipase 26 U/L (23-300)
[2024-09-27 19:31] VITALS: BP 135/86
--- NOTE | 2024-09-27 19:49 | ED.GENMED ---
History of Present Illness
General
Chief Complaint: Breathing Problem
Source: patient and family (Son and daughter)
Exam Limitations: none
Time Seen by Provider: 09/27/24 17:18
Nursing documentation reviewed up to this point in time: agreed with
History of Present Illness
History of Present Illness:
89-year-old with past medical history of hypertension fibrillation, GERD, asthma/COPD who presents to the emerged with her children for evaluation of nausea and vomiting, chronic cough. Family reports the patient has had a chronic cough for months,
has been following with Dr. Graves and is on many different medications but nothing seems to be helping and symptoms worsening. Apparently last night patient started to feel nauseated in the evening and had multiple episodes of vomiting that kept
her up at night. This morning she woke up and felt a bit better and has not had nausea or vomiting all day since. She did have some loose stools. She denies any abdominal pain. Her only complaint today is her chronic cough which she feels is
worse than normal but family feels about the same as usual. She denies any chest pain to me. She denies any increased shortness of breath that she says that she has chronic shortness of breath related to her chronic lung disease. She denies any
other complaints. Apparently there were some concerns about her breathing at her personal care facility ([facility]) which prompted EMS call but patient says that she simply had a coughing fit and son says that she has been like this
for years.
Past History
Past History
ED Past Medical History: Arrthythmia, Asthma, HTN, Other (OA) and Other (Asthma, macular degeneration, atrial fibrillation, osteoarthritis)
ED Past Surgical History: Other (Noncontributory)
Social History
Tobacco: Former smoker
Alcohol: None
Drug: None
Personal: Other (Noncontributory)
Living: with family
Employment: Not employed
Family History
Family History: Other (Noncontributory)
Review of Systems
Review of Systems
All Other Systems: ROS reviewed and negative except as documented in HPI and ROS
Constitutional: Denies fever or chills
Respiratory: Reports cough and trouble breathing
Cardiac: Denies chest pain or palpitations
ABD/GI: Reports nausea, vomiting and diarrhea; Denies abdominal pain
: Denies flank pain
Musculoskeletal: Denies neck pain or back pain
Neurological: Denies dizzy or headache
Phy Exam
Physical Exam
Physical Exam:
General: Awake, alert, oriented x3; no acute distress
Head: Normocephalic, atraumatic
Eyes: Conjunctiva normal, sclera anicteric
Throat: Airway intact, handling secretions
Neck: Trachea midline, no JVD
Lungs: Frequent hacking cough; normal respiratory rate, normal work of breathing, normal pulse ox on room air; she does have diffuse expiratory wheezing on lung auscultation
Heart: Regular rate and rhythm, no murmurs, gallops, or rubs
Abd: Soft, non distended, nontender
Neuro: No gross deficits
Extremities: Warm and well-perfused, no edema
Scores
Heart Failure Risk
Heart Failure Risk Score: Not Applicable
Heart Score for Chest Pain Patients
STEMI patient?: Not applicable
Withdrawal Assessment of Alcohol
Withdrawal Assessment Completed?: Not applicable
Course
Orders/Labs/Results
Orders:
Orders
09/27/24 16:46
Electrocardiogram (*1) Urgent
Reason for Study: Other
Other Reason for Exam: Respiratory Distress
Cardiac Monitoring- Treatment ONCE
EKG- Treatment ONCE
IV Insert/Care/Rem.- Treatment PRN
CR Chest - 2 Views Urgent
Comment:
Reason For Exam: respiratory distress
O2 Therapy [RESP] Urgent
Titrate/Wean O2 to maintain O2 sat greater than (%): 93
Special Instructions: TO MAINTAIN CONTINUOUS O2 SATS >/= 93%
Pulse Ox/cont/shift [RESP] Urgent
Quantity: 1
Special Instructions: continuous pulse ox
09/27/24 16:53
COVID-19 Antigen Urgent
Source: Nasal Swab
Complete Blood Count/With Diff Urgent
Comprehensive Metabolic Panel Urgent
Lipase Urgent
Comment: ADDON
NT-proBNP Urgent
Troponin I Urgent
Influenza A+B Rapid Molecular Urgent
MICHAEL Source: Nasal Swab
Specimen Description:
09/27/24 17:41
Add On- LAB Urgent
Tests Added?: lipase
0.9% Sodium Chloride 250 ml [Nss] 250 ml IV BOLUS
09/27/24 18:05
Ipratropium/Albuterol Sulfate [Duoneb] 3 ml INH R NOW STA
Abnormal Lab Results
09/27/24
16:53
Hgb 11.3 L g/dL
(12.0-16.0)
Hct 35.2 L %
(37.0-47.0)
MCV 80.5 L fL
(81.0-99.0)
MCH 25.9 L pg
(27.0-31.0)
MCHC 32.1 L g/dL
(33.0-37.0)
RDW 15.8 H %
(11.5-14.5)
MPV 11.7 H fL
(7.4-10.4)
Absolute Neuts (auto) 6.8 H 10^3/uL
(1.4-6.5)
Absolute Lymphs (auto) 0.2 L 10^3/uL
(1.2-3.4)
Neutrophils % 92.7 H %
(42.2-75.2)
Lymphocytes % 3.1 L %
(20.5-51.1)
BUN 26 H mg/dl
(7-17)
Glucose 140 H mg/dl
(70-99)
Total Bilirubin 1.6 H mg/dl
(0.2-1.3)
09/27/24 16:53
09/27/24 16:53
Vital Signs
Initial and Last Documented VS:
Initial Vital Signs
Temp Pulse Resp BP
37.2 C 97 14 154/62
09/27/24 16:46 09/27/24 16:46 09/27/24 16:46 09/27/24 16:46
Last Documented Vital Signs
Temp Pulse Resp BP Pulse Ox
37.4 C 90 27 135/86 94
09/27/24 19:17 09/27/24 19:31 09/27/24 19:31 09/27/24 19:31 09/27/24 19:31
MDM/Problems Addressed
Differential Diagnosis Includes:
Vomiting: Gastritis/GERD, gastroenteritis, pancreatitis, anginal equivalent considered less likely with no chest pain reported
Cough/shortness of breath: Asthma/COPD, pneumonia, aspiration pneumonitis, CHF considered less likely clinically
MDM/Problems Addressed:
89-year-old female presents complaining of nausea and vomiting last night that seems to have resolved; she also has worsening chronic cough. Vitals and exam as above. She had labs sent in triage including a CBC which shows marginal anemia, CMP
which showed no clinically significant abnormalities. Her troponin is undetectable and given that her vomiting occurred greater than 12 hours ago this is sufficient to rule out acute [place] as a cause for her symptoms last night. Her proBNP is
slightly elevated but in line with prior values and she does not appear to be in congestive heart failure on exam or chest x-ray. Chest x-ray shows marginal cardiomegaly but no pulmonary edema, no pneumonia, no other acute abnormalities. I suspect
her vomiting may have been either food related given quick onset and quick onset or possibly minor GI bug. Regarding her breathing: I had long discussion with the patient as well as her son who was at bedside. At this point we have observed her
for 4 hours she has had normal pulse ox throughout and she has acceptable respiratory rate and work of breathing. While she does have some wheezing it improved a bit with her DuoNeb and this is a longstanding issue for which she sees pulmonary.
She has not had any additional vomiting and is tolerated p.o. well here. Patient and son say that they were more concerned about the vomiting last night and are not necessarily concerned about her coughing or breathing�they say this is normal for
her and that they are already well plugged in; they do acknowledge that the staff was apparently concerned today at [place] but throughout her observation here, again, she has been very stable. I offered admission for observation and pulmonary
consultation for her respiratory issues but patient strongly prefers to go home and son does not feel this is necessary and I tend to agree. Using shared decision making we will discharge at this point back to [facility] care facility; I urged
patient and son to expedite follow-up with pulmonary as an outpatient.
Chronic conditions affecting care:
Asthma/COPD
Acute Exacerbation and/or Progression of Chronic Illness:
Acutely hypertensive resolved without intervention continue to monitor but no additional antihypertensives indicated at present
Acute Exacerbation and/or Progression of Chronic Illness: HTN
*Radiology
Radiology exam reviewed: preliminary read by ED provider and radiology read reviewed
*Pulse Oximetry
Patient hypoxic: no
*EKG
Interpreted by ED Provider?: Yes
Heart Rate: 98
Rate: normal
Rhythm: a-fib
[place]: left axis deviation
QRS Pattern: left vent hypertrophy
Ischemia: no ischemia
*Critical Care Note
Total Time (30-74mins, 75-104mins- exclusive of procedures): Not Applicable
Data Reviewed
Review of Other/Old Records Reveals: Labs and Records
Source: patient, records and family
Patient Management
Social determinants of health affecting care: Living situation (Lives in an monitored setting with nursing care)
Escalation/DeEscalation of care consider admission/obs:
Offered admission�shared decision making we will discharge back to living facility
ED Attending Note
-
Portions of this chart may have been created with voice recognition software.� Occasional wrong word or��sound alike� substitutions may have occurred due to the inherent limitations of voice recognition software.
Discharge Plan
Departure
Patient Disposition: Home (Routine Discharge)
Date of Disposition: 09/27/24
Time of Disposition: 20:07
Patient with high blood pressure during this ER visit?: Yes
Discharge Problem:
Nausea and vomiting, Chronic bronchitis
Instructions: Chronic bronchitis, Nausea and vomiting in adults
Prescriptions:
No Action
fexofenadine 180 mg Tablet
180 mg PO DAILY PRN (Reason: allergies) Qty: 0
Patient Comments:
180MG
fluticasone propionate 1 SPRAY spray,suspension
1 spray intranasal BID
Patient Comments:
stop for 2 weeks-too dry
Eliquis 5 MG tablet
5 mg PO BID Qty: 60 0RF
paroxetine HCl 20 MG tablet
20 mg PO DAILY
PreserVision AREDS 1 CAP capsule
2 cap PO DAILY
biotin [Hard Nails] 2,500 MCG capsule
2,500 mcg PO DAILY
furosemide 40 mg tablet
40 mg PO BID
prednisone 10 mg tablet
10 mg PO DAILY
ipratropium-albuterol 0.5 mg-3 mg(2.5 mg base)/3 mL solution for nebulization
3 ml INHALATION R Q4HPRN PRN (Reason: sob/wheezing)
azithromycin 250 mg tablet
250 mg PO Q48H
cyanocobalamin (vitamin B-12) [Vitamin B-12] 1,000 mcg Tablet
1,000 mcg PO DAILY
ascorbic acid (vitamin C) [Vitamin C] 500 mg Tablet
1,000 mg PO DAILY
budesonide 0.5 mg/2 mL suspension for nebulization
0.5 mg inhalation R Q6HPRN PRN (Reason: sob/wheezing)
albuterol sulfate 90 mcg/actuation HFA aerosol inhaler
2 puff INHALATION R Q6HPRN PRN (Reason: sob/wheezing)
losartan 100 mg tablet
100 mg PO DAILY
cholecalciferol (vitamin D3) [Vitamin D3] 25 mcg (1,000 unit) Tablet
25 mcg PO DAILY
Jardiance 10 mg tablet
10 mg PO DAILY
docusate sodium 100 mg Capsule
100 mg PO BID 14 Days Qty: 28 0RF
(DME) Dexcom G7 Sensor Device
Qty: 3 0RF
Rx Instructions:
Change device every 10 days, As Directed
New to insulin
E11.65
(DME) Dexcom G7 Catering Staff Member Misc
Qty: 1 0RF
Rx Instructions:
Use to obtain glucose readings
New to insulin A1C 9.1
E11.65
pantoprazole 40 mg Tablet,Delayed Release (Dr/Ec)
40 mg PO DAILY 30 Days Qty: 30 0RF
sucralfate 100 mg/mL Suspension
1 g PO ACHS 30 Days Qty: 1200 0RF
Insulin Glargine Lantus [Lantus] 6 UNITS
Subcutaneous Insulin Syringe [Syringe-Insulin] 0 UNIT
As Directed mls/hr SC HS
Ordered By: Jose Gu MD
Last Taken: Unknown
diltiazem HCl 120 mg Capsule,Extended Release 24hr
120 mg PO DAILY Qty: 1 0RF
Rx Instructions:
Dose decreased 240 mg 120 mg
dextromethorphan-guaifenesin 10-100 mg/5 mL Syrup
5 ml PO Q4HPRN PRN (Reason: cough) Qty: 237 0RF
acetaminophen 325 mg Tablet
650 mg PO Q4HPRN PRN (Reason: COTA/temp> 100.4F) Qty: 1 0RF
guaifenesin 600 mg Tablet Extended Release 12hr
600 mg PO Q12 Qty: 1 0RF
Januvia 100 mg Tablet
100 mg PO DAILY Qty: 1 0RF
prednisone 10 mg tablet
40 mg PO DAILY 5 Days Qty: 20 0RF
Referrals:
Jason Gray MD [Active] - Call in 1-3 days for appt
Sukhdev Carson MD [Family Provider] - Follow up in 2-3 days
Activity Restrictions/Additional Instructions:
Thank you for visiting the Emergency Department at [facility].
1. Please schedule a follow up appointment as directed. Call first thing tomorrow morning to make an appointment.
2. If indicated, please take your medications as instructed and indicated on discharge paperwork.
3. If any of your symptoms do not improve, or persist, or become more severe within 6-12 hours, please return to the emergency department for further care.
4. Please return to the emergency department if you develop a headache, neck pain/stiffness, fever greater than 100.4F, chest pain, shortness of breath, persistent nausea, vomiting, slurred speech, difficulty walking, numbness/tingling, weakness,
signs of infection or any other symptoms that are worrisome to you.
Please call [phone] if you have any questions.
Interventions
Interventions:
*Risk Screen - Suicide Last Done: 09/27/24 16:46
*General Assessment Last Done: 09/27/24 16:46
*Neglect/Abuse Screening Last Done: 09/27/24 16:46
*ED COVID-19 Vaccine History Last Done: 09/27/24 17:08
ED- Cardiac Assessment Last Done: 09/27/24 16:59
ED- Pulmonary Assessment Last Done: 09/27/24 16:59
Discharge Date and Time
Print Language: SINHALA
== END 2024-09-27 20:30 | disposition home or self-care (01) ==
LOC: EMR 16:38
PROVIDERS: EMERGENCY PHYSICIAN Emergency Medicine; FAMILY PHYSICIAN Internal Medicine
DX: J44.89 Other specified chronic obstructive pulmonary disease (principal); R11.2 Nausea with vomiting, unspecified; I48.91 Unspecified atrial fibrillation; I10 Essential (primary) hypertension; Z87.891 Personal history of nicotine dependence; D64.9 Anemia, unspecified; K21.9 Gastro-esophageal reflux disease without esophagitis
CPT/HCPCS: 94640; 96360; 99285; 71046; 80053; 83690; 83880; 84484; 85025; 87502; 87811; 93005